=== PATIENT | female | born 1960 | race Caucasian/White ===

== ENCOUNTER 2024-06-01 22:15 | Inpatient (IN) | payer MEDICARE, OTHER, MEDICAID, SELFPAY ==
[2024-06-01 23:00] VITALS: BP 153/70; PULSE 56; RESP 16; TEMP 36.2; O2SAT 98
[2024-06-01 23:34] VITALS: BMI 22.3
--- NOTE | 2024-06-02 06:17 | PC.ADMIT ---
Patient is a 64 year old Niuean speaking female admitted on a Section 12B from [facility] ED. She arrived via stretcher to the unit 06/01/24 at 2245. Patient calm and cooperative with skin check which was unremarkable. Patient was difficult to understand and would often mumble an answer. Her speech is soft spoken, slightly tangential with some thought blocking noted. She has a past diagnosis of Schizoaffective disorder and anxiety. Her medical history includes Hyperlipidemia, and pre-diabetes. She is currently a resident at [facility] and has been there for three (3) weeks; she does not like being at the halfway and would like to go back home. Apparently she has been both physically and verbally aggressive with staff and residents. At the ED she was also aggressive with staff and required both a chemical and physical restraint. When this investigative writer asked her why she was in the hospital she said Because a friend of mine recently and I'm sad. Patient later said her friend in February 2024. Although patient answered questions with yes or no, she appears confused and delusional and made a passing reference to having a special connection with God. Patient did not recall getting upset at the halfway and asked if she could speak with a doctor severo. Patient was calm when she was told her orders would be put in and the doctor would see her Tuesday. After getting a snack patient went to bed and has been sleeping through the night in [facility].
[2024-06-02] MEDS: Gabapentin 300 MG CAPSULE PO ×3 (08:44→20:44)
[2024-06-02 08:45] VITALS: BP 141/75; PULSE 68; RESP 20; TEMP 36.3; O2SAT 100
[2024-06-02] MEDS: amLODIPine Besylate 5 MG TABLET PO (08:47)
[2024-06-02] MEDS: Metoprolol Succinate ER 25 MG TAB.ER.24H PO (08:47)
[2024-06-02] MEDS: LORazepam 1 MG TABLET PO ×3 (08:47→20:44)
[2024-06-02] MEDS: Benztropine Mesylate 1 MG TABLET PO ×2 (08:48→20:43)
[2024-06-02] MEDS: guanFACINE HCl ER 1 MG TAB.ER.24H PO (08:48)
[2024-06-02] MEDS: hydrOXYzine HCL 25 MG TABLET PO ×2 (08:48→20:43)
[2024-06-02] MEDS: fluPHENAZine HCl 5 MG TABLET 10 MG PO ×2 (08:48→20:44)
[2024-06-02] MEDS: Venlafaxine HCL 25 MG TABLET 75 MG PO (09:08)
--- NOTE | 2024-06-02 10:49 | HO.PSYADMNOT ---
HPI Date of Service: 06/02/24 Chief Complaint: schizoaffective disorder, bipolar type Sources of Information: patient interviewed, chart reviewed and crisis/core team assessment reviewed HPI Subjective Notes: Asencio Warning, Martinez Order and Conditional Voluntary Narrative: Negar is a 64-year-old white, female with history of schizoaffective disorder, generalized anxiety disorder and PTSD who was taken to [facility] in [facility] from her rest home, [facility] for agitation and psychosis. She had been living in this facility since April. She has been showing signs of decompensation recently and appears to be psychotic, agitated and aggressively acting towards staff and patients. She had been evaluated earlier in May at the same hospital for similar presentation. She has been medication compliant. She is not able to give any pertinent information and appears to be delusional, tangential, paranoid. She admits to auditory and visual hallucinations. Current medications include Cogentin 1 mg b.i.d., Prolixin 10 mg b.i.d., gabapentin 300 mg t.i.d., Intuniv 1 mg daily, Ativan 1 mg t.i.d., metoprolol 25 mg daily, Effexor 75 mg daily, Zyprexa 10 mg b.i.d., amlodipine 5 mg daily. Her EKG revealed bradycardia and left axis deviation. She was sent here after all the bed search in the [place] part [facility] the [facility] was exhausted. She is able to return to the rest home that is keeping the bed for 20 days Past Psychiatric History: Unknown Medical Evaluation Reviewed: Yes (Abnormal EKG) [facility] Family History: Unobtainable Social History: Unobtainable Substance History: None known Trauma History: Unobtainable Diagnostics Vital Signs (24Hr): Vital Signs - 24 hr 06/01/24 23:00 06/02/24 08:45 Temperature 97.1 F 97.3 F Pulse Rate 56 68 Respiratory Rate 16 20 Blood Pressure 153/70 H 141/75 H Pulse Oximetry 98 100 Oxygen Delivery Method Room Air Room Air BMI result Body Mass Index 22.3 Meds/Allergies Meds Home Medications ?Medication ?Instructions ?Recorded ?Confirmed ?Type amlodipine 5 mg tablet 5 mg PO DAILY 06/02/24 06/02/24 History benztropine 1 mg tablet 1 mg PO BID 06/02/24 06/02/24 History fluphenazine HCl 10 mg tablet 10 mg PO BID 06/02/24 06/02/24 History gabapentin 300 mg capsule 300 mg PO TID 06/02/24 06/02/24 History guanfacine 1 mg tablet 1 mg PO DAILY 06/02/24 06/02/24 History hydroxyzine pamoate 25 mg capsule 25 mg PO BID 06/02/24 06/02/24 History hydroxyzine pamoate 25 mg capsule 25 mg PO TID PRN Anxiety 06/02/24 06/02/24 History lorazepam 0.5 mg tablet PO 06/02/24 History lorazepam 1 mg tablet 1 mg PO TID 06/02/24 06/02/24 History metoprolol succinate 25 mg 25 mg PO DAILY 06/02/24 06/02/24 History tablet,extended release 24 hr olanzapine 5 mg tablet 5 mg PO BEDTIME 06/02/24 06/02/24 History tizanidine 2 mg tablet 4 mg PO 06/02/24 History venlafaxine 75 mg tablet 75 mg PO DAILY 06/02/24 06/02/24 History Allergies Allergies Allergy/AdvReac Type Severity Reaction Status Date / Time Sulfa (Sulfonamide AdvReac Mild Nausea and Verified 06/01/24 23:32 Antibiotics) Vomiting amoxicillin [From Augmentin] AdvReac Nausea and Verified 06/02/24 00:04 Vomiting clavulanic acid AdvReac Nausea and Verified 06/02/24 00:04 [From Augmentin] Vomiting Mental Status Exam Mental Status Exam Narrative: Patient was seen the day after her admission. She is alert to person only. Speech is garbled and hard to understand. No eye contact. Affect is contained and constricted. She appears delusional. She admits to [facility]. No suicidal ideations. Cognitively she is tangential, circumstantial and unable to give any coherent information. Judgment is impaired Assessment & Plan Assessment & Plan (1) Schizoaffective disorder, bipolar type: Status: Acute Code(s): F25.0 - Schizoaffective disorder, bipolar type Plan Patient was admitted for safety and stabilization and meets criteria for IP LOC. Current medications were continued. She refused lab work. We will get further information next week from her rest home. Patient educated on: diagnosis and medication risk/benefits Reason for continued inpatient stay Substantial Risk for: harm to others and med/psych decompensation Statement Statement: I have reviewed the history and physical and performed a pertinent examination on my patient. No changes have occurred unless specified. If the History and Physical was not performed prior to admission, the Hospitalist's service will be consulted for completing the admission physical. Time Spent With Patient Time: Total time managing care of this patient today ____ minutes.
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
[2024-06-02] MEDS: Divalproex Sodium ER 500 MG TAB.ER.24H PO (20:43)
[2024-06-02] MEDS: OLANZapine 10 MG TABLET PO (20:44)
[2024-06-02] MEDS: traZODone HCL 50 MG TABLET PO (22:22)
[2024-06-03] MEDS: hydrOXYzine HCL 25 MG TABLET PO ×3 (05:05→20:27)
[2024-06-03 07:33] LABS: MANUAL DIFF FLAG NO
[2024-06-03 07:38] LABS: Basophils Absolute Auto 0.1 X10*3/uL (0.0-0.2); Basophils Percent Auto 1.3 % (0-2); Eosinophils Absolute Auto 0.2 X10*3/uL (0.0-0.4); Eosinophils Percent Auto 2.1 % (0-4); Hematocrit 39.9 % (37.0-47.0); Hemoglobin 13.7 g/dl (12.0-16.0); Imm Gran Abs Auto 0.02 X10*3/uL (0.00-0.03); Imm Gran Pct Auto 0.3 % (0.0-0.4); Lymphocytes Absolute Auto 2.8 X10*3/uL (1.2-4.9); Lymphocytes Percent Auto 39.6 % (20-40); Mean Corpuscular HGB Conc 34.3 g/dl (31.0-35.0); Mean Corpuscular Hemoglobin 30.3 pg (27.0-33.0); Mean Corpuscular Volume 88.3 fL (80.0-98.0); Mean Platelet Volume 8.6 fL (9.4-12.3); Monocytes Absolute Auto 0.5 X10*3/uL (0.1-1.2); Monocytes Percent Auto 7.4 % (2-11); Neutrophils Absolute Auto 3.5 x10*3/uL (2.0-8.3); Neutrophils Percent Auto 49.3 % (45-73); Platelet Count 334 X10*3/uL (160-400); Red Blood Count 4.52 X10*6/uL (4.20-5.50); White Blood Count 7.1 X10*3/uL (4.8-10.8)
[2024-06-03 07:46] LABS: Estimated Average Glucose 105 mg/dL; Hemoglobin A1C 122.1839 umol/L; Hemoglobin A1c % 5.3 % (<6.0); Total Hemoglobin (HGBA1C) 3553.2882 umol/L
[2024-06-03 07:59] LABS: Alanine Aminotransferase 19 U/L (0-31); Albumin Level 4.3 g/dL (3.5-5.0); Alkaline Phosphatase 63 U/L (39-117); Anion Gap 16 (12-20); Aspartate Amino Transferase 23 U/L (5-31); Bilirubin Total 0.3 mg/dL (0.0-1.0); Blood Urea Nitrogen 14 mg/dL (9-16); Calcium 10.1 mg/dL (8.4-10.2); Carbon Dioxide 26 mmol/L (22-29); Chloride 107 mmol/L (96-108); Cholesterol 140 mg/dL (<200); Creatinine Clr Calc Pharmacy 70.8; Estimated Glomerular Filt Rate > 60; Glucose Fasting 77 mg/dL (60-99); HDL Cholesterol 51 mg/dL (>40); LDL Cholesterol Calculated 77 mg/dL (<100); Potassium 3.7 mmol/L (3.3-5.1); Sodium 145 mmol/L (135-145); Total Protein 7.3 g/dL (6.5-8.0); Triglycerides 60 mg/dL (<150)
[2024-06-03 08:14] LABS: Free T4 (Free Thyroxine) 0.95 ng/dL (0.71-1.85); Thyroid Stimulating Hormone 1.23 uIU/mL (0.32-4.0)
[2024-06-03 08:19] VITALS: BP 124/63; PULSE 61; RESP 20; TEMP 36.4; O2SAT 97
[2024-06-03] MEDS: LORazepam 1 MG TABLET PO ×3 (08:21→20:27)
[2024-06-03] MEDS: Benztropine Mesylate 1 MG TABLET PO ×2 (08:21→20:27)
[2024-06-03] MEDS: OLANZapine 10 MG TABLET PO ×2 (08:22→20:27)
[2024-06-03] MEDS: guanFACINE HCl ER 1 MG TAB.ER.24H PO (08:22)
[2024-06-03] MEDS: Gabapentin 300 MG CAPSULE PO ×3 (08:22→20:27)
[2024-06-03] MEDS: amLODIPine Besylate 5 MG TABLET PO (08:22)
[2024-06-03] MEDS: Metoprolol Succinate ER 25 MG TAB.ER.24H PO (08:22)
--- NOTE | 2024-06-03 08:22 | P.PNPSI_ITS ---
Subjective Subjective Date of Service: 06/03/24 Reason For Visit: schizoaffective disorder, bipolar type Subjective Notes: Conditional Voluntary Interim History: Patient was seen and discussed in rounds today. Records and plans were reviewed. She continues to be very disorganized, labile, responding to internal stimuli. She refused laboratory workup. Continues to be delusional, religiously preoccupied and disorganized. No complaints or side effects and has been medication compliant. Eating and sleeping adequately. No changes were made today Review of Systems Review of Systems Yes Unobtainable due to mental status Mental Status Exam Mental Status Exam Narrative: In today's visit she is alert to person only. Speech is garbled and hard to understand. No eye contact. Affect is contained and constricted. She appears delusional. She admits to [facility]. No suicidal ideations. Cognitively she is tangential, circumstantial and unable to give any coherent information and very disorganized. Judgment is impaired Diagnostics Vital Signs (24Hr): Vital Signs - 24 hr 06/02/24 08:45 06/03/24 08:19 Temperature 97.3 F 97.5 F Pulse Rate 68 61 Respiratory Rate 20 20 Blood Pressure 141/75 H 124/63 Pulse Oximetry 100 97 Oxygen Delivery Method Room Air Room Air BMI result Body Mass Index 22.3 Labs 06/03/24 07:22 06/03/24 07:22 Labs: Laboratory Results - last 48 hr 06/03/24 07:22 WBC 7.1 RBC 4.52 Hgb 13.7 Hct 39.9 MCV 88.3 MCH 30.3 MCHC 34.3 RDW 13.0 Plt Count 334 MPV 8.6 L Immature Gran % (Auto) 0.3 Neut % (Auto) 49.3 Lymph % (Auto) 39.6 Robeson % (Auto) 7.4 Eos % (Auto) 2.1 Baso % (Auto) 1.3 Lymph # (Auto) 2.8 Robeson # (Auto) 0.5 Eos # (Auto) 0.2 Baso # (Auto) 0.1 Abs Immat Gran (auto) 0.02 Absolute Neuts (auto) 3.5 Absolute Nucleated RBC 0.000 Nucleated RBC % (auto) 0.0 Sodium 145 Potassium 3.7 Chloride 107 Carbon Dioxide 26 Anion Gap 16 BUN 14 Creatinine 0.78 Estim Creat Clear Calc 70.8 Estimated GFR > 60 Fasting Glucose 77 Estimat Average Glucose 105 Hemoglobin A1c % 5.3 Calcium 10.1 Total Bilirubin 0.3 AST 23 ALT 19 Alkaline Phosphatase 63 Total Protein 7.3 Albumin 4.3 Triglycerides 60 Cholesterol 140 LDL Cholesterol, Calc 77 HDL Cholesterol 51 TSH 1.23 Free T4 0.95 Medications Medications Current Medications Acetaminophen (Acetaminophen 325 Mg Tablet) 650 mg PO Q6H PRN PRN Reason: Headache/Pain Mild Scale (1-3) Al Hydroxide/Mg Hydroxide (Magnesium Hydrox/Alum Hydrox 30 Ml Oral.Susp) 30 ml PO Q6H PRN PRN Reason: Heartburn/Nausea Amlodipine Besylate (Amlodipine Besylate 5 Mg Tablet) 5 mg PO DAILY [facility]; Protocol Last Admin: 06/02/24 08:47 Dose: 5 mg Benztropine Mesylate (Benztropine Mesylate 1 Mg Tablet) 1 mg PO BID [facility] Last Admin: 06/02/24 20:43 Dose: 1 mg Divalproex Sodium (Divalproex Sodium Er 500 Mg Tab.Er.24h) 500 mg PO BID [facility] Last Admin: 06/02/24 20:43 Dose: 500 mg Fluphenazine HCl (Fluphenazine Hcl 5 Mg Tablet) 10 mg PO BID [facility] Last Admin: 06/02/24 20:44 Dose: 10 mg Gabapentin (Gabapentin 300 Mg Capsule) 300 mg PO TID [facility] Last Admin: 06/02/24 20:44 Dose: 300 mg Guanfacine HCl (Guanfacine Hcl Er 1 Mg Tab.Er.24h) 1 mg PO DAILY [facility] Last Admin: 06/02/24 08:48 Dose: 1 mg Hydroxyzine HCl (Hydroxyzine Hcl 25 Mg Tablet) 25 mg PO Q6H PRN PRN Reason: Anxiety Last Admin: 06/03/24 05:05 Dose: 25 mg Hydroxyzine HCl (Hydroxyzine Hcl 25 Mg Tablet) 25 mg PO BID [facility] Last Admin: 06/02/24 20:43 Dose: 25 mg Lorazepam (Lorazepam 1 Mg Tablet) 1 mg PO TID [facility] Last Admin: 06/02/24 20:44 Dose: 1 mg Magnesium Hydroxide (Milk Of Magnesia 30 Ml Oral.Susp) 30 ml PO DAILY PRN PRN Reason: Constipation Metoprolol Succinate (Metoprolol Succinate Er 25 Mg Tab.Er.24h) 25 mg PO DAILY [facility]; Protocol Last Admin: 06/02/24 08:47 Dose: 25 mg Nicotine (Nicotine 14 Mg Patch.Td24) 14 mg TRANSDERMA DAILY PRN PRN Reason: Nicotine Cravings Nicotine Polacrilex (Nicotine Polacrilex 2 Mg Gum) 2 mg BUCCAL Q2H PRN PRN Reason: Nicotine Cravings Nicotine Polacrilex (Nicotine Polacrilex Lozenge 2 Mg Lozenge) 2 mg BUCCAL Q2H PRN PRN Reason: Nicotine Cravings Olanzapine (Olanzapine 10 Mg Tablet) 10 mg PO BID [facility] Last Admin: 06/02/24 20:44 Dose: 10 mg Trazodone HCl (Trazodone Hcl 50 Mg Tablet) 50 mg PO BEDTIME MRX1 PRN PRN Reason: Insomnia Last Admin: 06/02/24 22:22 Dose: 50 mg Venlafaxine HCl (Venlafaxine Hcl 25 Mg Tablet) 75 mg PO DAILY [facility] Last Admin: 06/02/24 09:08 Dose: 75 mg Allergies Allergies Allergy/AdvReac Type Severity Reaction Status Date / Time Sulfa (Sulfonamide AdvReac Mild Nausea and Verified 06/01/24 23:32 Antibiotics) Vomiting amoxicillin [From Augmentin] AdvReac Nausea and Verified 06/02/24 00:04 Vomiting clavulanic acid AdvReac Nausea and Verified 06/02/24 00:04 [From Augmentin] Vomiting Assessment & Plan Assessment & Plan (1) Routine medical exam: Status: Acute Code(s): Z00.00 - Encounter for general adult medical examination without abnormal findings Plan 64 year old female with history of schizoaffective disorder, hld, prediabetes, htn admitted to adult psychiatry from [facility] after [facility] reported increase aggression from patient. #Mood/psychotic disorder -plan per psychiatry #HTN -bp reasonably controlled -continue norvasc and toprol #prediabetes -check a1c, check poc daily Thank you for allowing me to participate in this consult. Signing off at this time. Please do not hesitate to call for further questions. 06/03: Continue current regimen and planslan Reason for continued inpatient stay Substantial Risk for: med/psych decompensation Time Spent With Patient Time: Total time managing care of this patient today ____ minutes.
[2024-06-03] MEDS: fluPHENAZine HCl 5 MG TABLET 10 MG PO ×2 (08:23→20:26)
[2024-06-03] MEDS: Venlafaxine HCL 25 MG TABLET 75 MG PO (08:24)
[2024-06-03 08:27] LABS: Folate 8.6 ng/mL (> or = 4.0); Vitamin B12 495 pg/mL (200-900)
[2024-06-03] MEDS: Divalproex Sodium ER 500 MG TAB.ER.24H PO ×2 (09:06→20:26)
[2024-06-03 20:00] VITALS: BP 149/76; PULSE 67; RESP 18; TEMP 36.3; O2SAT 99
[2024-06-04 08:34] VITALS: BP 151/84; PULSE 68; RESP 16; TEMP 36.3; O2SAT 98
[2024-06-04 08:38] LABS: Glucose, Whole Blood 100 mg/dL (60-115)
[2024-06-04] MEDS: Venlafaxine HCL 25 MG TABLET 75 MG PO (08:46)
[2024-06-04] MEDS: amLODIPine Besylate 5 MG TABLET PO (08:47)
[2024-06-04] MEDS: guanFACINE HCl ER 1 MG TAB.ER.24H PO (08:47)
[2024-06-04] MEDS: OLANZapine 10 MG TABLET PO ×2 (08:47→21:19)
[2024-06-04] MEDS: Benztropine Mesylate 1 MG TABLET PO ×2 (08:47→21:15)
[2024-06-04] MEDS: Divalproex Sodium ER 500 MG TAB.ER.24H PO ×2 (08:47→21:21)
--- NOTE | 2024-06-04 10:10 | HO.PSYCHPN ---
Subjective Subjective Date of Service: 06/04/24 Reason For Visit: schizoaffective disorder, bipolar type Subjective Notes: Asencio Warning (consumer loan underwriter gave 06/04/24) Interim History: met with patient; discussed with team pt sometimes responds in organized way but also expressing paranoid, delusional thoughts; labile, will all of sudden start crying. Pt says she has to let government know there are devils and witches in the nursing homes...Says her [facility] her [facility]...Starts pointing to writers computer and says she can see a snake moving; points to door and says she sees people (which are not there). -knows name, , where she lives ([facility]), date (month, year) and where she is now, but not why. -gives verbal permission to call her son Jani. Mental Status Exam Mental Status Exam Narrative: Alert to self, time, place. Behavior disorganized but seems improved since yesterday; Dressed and groomed adequately; Speech is sometimes garbled but can also be clear; Improved eye contact. Thought process can be goal oriented but also distracted and disorganized; mood and Affect is labile; Thought content on delusional ideas; AVH; no SI/HI. Judgment/insight is impaired Diagnostics Vital Signs (24Hr): Vital Signs - 24 hr 06/03/24 20:00 06/04/24 08:34 Temperature 97.3 F 97.4 F Pulse Rate 67 68 Respiratory Rate 18 16 Blood Pressure 149/76 H 151/84 H Pulse Oximetry 99 98 Oxygen Delivery Method Room Air Room Air BMI result Body Mass Index 22.3 Labs 06/03/24 07:22 06/03/24 07:22 Labs: Laboratory Results - last 48 hr 06/03/24 06/04/24 07:22 08:34 WBC 7.1 RBC 4.52 Hgb 13.7 Hct 39.9 MCV 88.3 MCH 30.3 MCHC 34.3 RDW 13.0 Plt Count 334 MPV 8.6 L Immature Gran % (Auto) 0.3 Neut % (Auto) 49.3 Lymph % (Auto) 39.6 Rogers % (Auto) 7.4 Eos % (Auto) 2.1 Baso % (Auto) 1.3 Lymph # (Auto) 2.8 Rogers # (Auto) 0.5 Eos # (Auto) 0.2 Baso # (Auto) 0.1 Abs Immat Gran (auto) 0.02 Absolute Neuts (auto) 3.5 Absolute Nucleated RBC 0.000 Nucleated RBC % (auto) 0.0 Sodium 145 Potassium 3.7 Chloride 107 Carbon Dioxide 26 Anion Gap 16 BUN 14 Creatinine 0.78 Estim Creat Clear Calc 70.8 Estimated GFR > 60 POC Glucose 100 Fasting Glucose 77 Estimat Average Glucose 105 Hemoglobin A1c % 5.3 Calcium 10.1 Total Bilirubin 0.3 AST 23 ALT 19 Alkaline Phosphatase 63 Total Protein 7.3 Albumin 4.3 Triglycerides 60 Cholesterol 140 LDL Cholesterol, Calc 77 HDL Cholesterol 51 Vitamin B12 495 Folate 8.6 TSH 1.23 Free T4 0.95 Medications Medications Current Medications Acetaminophen (Acetaminophen 325 Mg Tablet) 650 mg PO Q6H PRN PRN Reason: Headache/Pain Mild Scale (1-3) Al Hydroxide/Mg Hydroxide (Magnesium Hydrox/Alum Hydrox 30 Ml Oral.Susp) 30 ml PO Q6H PRN PRN Reason: Heartburn/Nausea Amlodipine Besylate (Amlodipine Besylate 5 Mg Tablet) 5 mg PO DAILY [facility]; Protocol Last Admin: 06/04/24 08:47 Dose: 5 mg Benztropine Mesylate (Benztropine Mesylate 1 Mg Tablet) 1 mg PO BID [facility] Last Admin: 06/04/24 08:47 Dose: 1 mg Divalproex Sodium (Divalproex Sodium Er 500 Mg Tab.Er.24h) 500 mg PO BID [facility] Last Admin: 06/04/24 08:47 Dose: 500 mg Fluphenazine HCl (Fluphenazine Hcl 5 Mg Tablet) 10 mg PO BID [facility] Last Admin: 06/04/24 09:30 Dose: Not Given Gabapentin (Gabapentin 300 Mg Capsule) 300 mg PO TID [facility] Last Admin: 06/04/24 09:30 Dose: Not Given Guanfacine HCl (Guanfacine Hcl Er 1 Mg Tab.Er.24h) 1 mg PO DAILY [facility] Last Admin: 06/04/24 08:47 Dose: 1 mg Hydroxyzine HCl (Hydroxyzine Hcl 25 Mg Tablet) 25 mg PO Q6H PRN PRN Reason: Anxiety Last Admin: 06/03/24 05:05 Dose: 25 mg Hydroxyzine HCl (Hydroxyzine Hcl 25 Mg Tablet) 25 mg PO BID [facility] Last Admin: 06/04/24 09:30 Dose: Not Given Lorazepam (Lorazepam 1 Mg Tablet) 1 mg PO TID [facility] Last Admin: 06/04/24 09:30 Dose: Not Given Magnesium Hydroxide (Milk Of Magnesia 30 Ml Oral.Susp) 30 ml PO DAILY PRN PRN Reason: Constipation Metoprolol Succinate (Metoprolol Succinate Er 25 Mg Tab.Er.24h) 25 mg PO DAILY [facility]; Protocol Last Admin: 06/04/24 09:29 Dose: Not Given Nicotine (Nicotine 14 Mg Patch.Td24) 14 mg TRANSDERMA DAILY PRN PRN Reason: Nicotine Cravings Nicotine Polacrilex (Nicotine Polacrilex 2 Mg Gum) 2 mg BUCCAL Q2H PRN PRN Reason: Nicotine Cravings Nicotine Polacrilex (Nicotine Polacrilex Lozenge 2 Mg Lozenge) 2 mg BUCCAL Q2H PRN PRN Reason: Nicotine Cravings Olanzapine (Olanzapine 10 Mg Tablet) 10 mg PO BID [facility] Last Admin: 06/04/24 08:47 Dose: 10 mg Trazodone HCl (Trazodone Hcl 50 Mg Tablet) 50 mg PO BEDTIME MRX1 PRN PRN Reason: Insomnia Last Admin: 06/02/24 22:22 Dose: 50 mg Venlafaxine HCl (Venlafaxine Hcl 25 Mg Tablet) 75 mg PO DAILY [facility] Last Admin: 06/04/24 08:46 Dose: 75 mg Allergies Allergies Allergy/AdvReac Type Severity Reaction Status Date / Time Sulfa (Sulfonamide AdvReac Mild Nausea and Verified 06/01/24 23:32 Antibiotics) Vomiting amoxicillin [From Augmentin] AdvReac Nausea and Verified 06/02/24 00:04 Vomiting clavulanic acid AdvReac Nausea and Verified 06/02/24 00:04 [From Augmentin] Vomiting Assessment & Plan Assessment & Plan (1) Schizoaffective disorder, bipolar type: Status: Acute Code(s): F25.0 - Schizoaffective disorder, bipolar type (2) HTN (hypertension): Status: Acute Code(s): I10 - Essential (primary) hypertension (3) HLD (hyperlipidemia): Status: Acute Code(s): E78.5 - Hyperlipidemia, unspecified (4) Prediabetes: Status: Acute Code(s): R73.03 - Prediabetes Plan HPI: Negar is a 64-year-old white, female with history of schizoaffective disorder, generalized anxiety disorder and PTSD who was taken to [facility] in [facility] from her rest home, [facility] for agitation and psychosis. She had been living in this facility since April. She has been showing signs of decompensation recently and appears to be psychotic, agitated and aggressively acting towards staff and patients. She had been evaluated earlier in May at the same hospital for similar presentation. She has been medication compliant. She is not able to give any pertinent information and appears to be delusional, tangential, paranoid. She admits to auditory and visual hallucinations. Current medications include Cogentin 1 mg b.i.d., Prolixin 10 mg b.i.d., gabapentin 300 mg t.i.d., Intuniv 1 mg daily, Ativan 1 mg t.i.d., metoprolol 25 mg daily, Effexor 75 mg daily, Zyprexa 10 mg b.i.d., amlodipine 5 mg daily. Her EKG revealed bradycardia and left axis deviation. She was sent here after all the bed search in the [place] part of the [facility] was exhausted. She is able to return to the rest home that is keeping the bed for 20 days Hospital course: 06/04 pt sometimes responds in organized way but also expressing paranoid, delusional thoughts; labile, will all of sudden start crying. Pt says she has to let government know there are devils and witches in the nursing homes...Says her kids abandoned her [facility]...Starts pointing to writers computer and says she can see a snake moving; points to door and says she sees people (which are not there). -knows name, , where she lives ([facility]), date (month, year) and where she is now, but not why. -gives verbal permission to call her son Jani. impression: psychotic but also possibly with some delirium...labs unremarkable thus far. Also seems to be improving some. Will Need collateral. Plan: 12b; will likely file gather collateral continue home meds Patient educated on: diagnosis and medication risk/benefits Informed Consent: understands and does not understand Reason for continued inpatient stay Substantial Risk for: inability to function Time Spent With Patient Time: Total time managing care of this patient today ____ minutes.
[2024-06-04] MEDS: fluPHENAZine HCl 5 MG TABLET 10 MG PO ×2 (12:30→21:15)
[2024-06-04] MEDS: Gabapentin 300 MG CAPSULE PO ×2 (15:44→21:22)
[2024-06-04] MEDS: LORazepam 1 MG TABLET PO ×2 (15:44→21:16)
[2024-06-04 20:00] VITALS: BP 120/81; PULSE 75; TEMP 36.3; O2SAT 98
[2024-06-04] MEDS: hydrOXYzine HCL 25 MG TABLET PO (21:16)
[2024-06-05 09:54] LABS: Glucose, Whole Blood 82 mg/dL (60-115)
[2024-06-05 10:00] VITALS: BP 121/85; PULSE 86; RESP 18; TEMP 36.2; O2SAT 96
--- NOTE | 2024-06-05 10:13 | HO.PSYCHPN ---
Subjective Subjective Date of Service: 06/05/24 Reason For Visit: schizoaffective disorder, bipolar type Subjective Notes: Conditional Voluntary Interim History: Pt slept all night. She is seen in her room, cups, food, napkins on the floor. She reports the devil is not letting her alone. She denies hearing voices but appears internally preoccupied. She is worried about her children losing her but states she is safe here. She denies SI/HI. She is taking medications as prescribed. Diagnostics Vital Signs (24Hr): Vital Signs - 24 hr 06/04/24 20:00 Temperature 97.4 F Pulse Rate 75 Blood Pressure 120/81 Pulse Oximetry 98 Oxygen Delivery Method Room Air BMI result Body Mass Index 22.3 Labs 06/03/24 07:22 06/03/24 07:22 Labs: Laboratory Results - last 48 hr 06/04/24 06/05/24 08:34 09:49 POC Glucose 100 82 Medications Medications Current Medications Acetaminophen (Acetaminophen 325 Mg Tablet) 650 mg PO Q6H PRN PRN Reason: Headache/Pain Mild Scale (1-3) Al Hydroxide/Mg Hydroxide (Magnesium Hydrox/Alum Hydrox 30 Ml Oral.Susp) 30 ml PO Q6H PRN PRN Reason: Heartburn/Nausea Amlodipine Besylate (Amlodipine Besylate 5 Mg Tablet) 5 mg PO DAILY [facility]; Protocol Last Admin: 06/04/24 08:47 Dose: 5 mg Benztropine Mesylate (Benztropine Mesylate 1 Mg Tablet) 1 mg PO BID [facility] Last Admin: 06/04/24 21:15 Dose: 1 mg Divalproex Sodium (Divalproex Sodium Er 500 Mg Tab.Er.24h) 500 mg PO BID [facility] Last Admin: 06/04/24 21:21 Dose: 500 mg Fluphenazine HCl (Fluphenazine Hcl 5 Mg Tablet) 10 mg PO BID [facility] Last Admin: 06/04/24 21:15 Dose: 10 mg Gabapentin (Gabapentin 300 Mg Capsule) 300 mg PO TID [facility] Last Admin: 06/04/24 21:22 Dose: 300 mg Guanfacine HCl (Guanfacine Hcl Er 1 Mg Tab.Er.24h) 1 mg PO DAILY [facility] Last Admin: 06/04/24 08:47 Dose: 1 mg Hydroxyzine HCl (Hydroxyzine Hcl 25 Mg Tablet) 25 mg PO BID [facility] Last Admin: 06/04/24 21:16 Dose: 25 mg Lorazepam (Lorazepam 1 Mg Tablet) 1 mg PO TID [facility] Last Admin: 06/04/24 21:16 Dose: 1 mg Magnesium Hydroxide (Milk Of Magnesia 30 Ml Oral.Susp) 30 ml PO DAILY PRN PRN Reason: Constipation Metoprolol Succinate (Metoprolol Succinate Er 25 Mg Tab.Er.24h) 25 mg PO DAILY [facility]; Protocol Last Admin: 06/04/24 09:29 Dose: Not Given Nicotine (Nicotine 14 Mg Patch.Td24) 14 mg TRANSDERMA DAILY PRN PRN Reason: Nicotine Cravings Nicotine Polacrilex (Nicotine Polacrilex Lozenge 4 Mg Lozenge) 4 mg BUCCAL Q2H PRN PRN Reason: Nicotine Cravings Olanzapine (Olanzapine 10 Mg Tablet) 10 mg PO BID [facility] Last Admin: 06/04/24 21:19 Dose: 10 mg Trazodone HCl (Trazodone Hcl 50 Mg Tablet) 50 mg PO BEDTIME MRX1 PRN PRN Reason: Insomnia Last Admin: 06/02/24 22:22 Dose: 50 mg Venlafaxine HCl (Venlafaxine Hcl 25 Mg Tablet) 75 mg PO DAILY [facility] Last Admin: 06/04/24 08:46 Dose: 75 mg Allergies Allergies Allergy/AdvReac Type Severity Reaction Status Date / Time Sulfa (Sulfonamide AdvReac Mild Nausea and Verified 06/01/24 23:32 Antibiotics) Vomiting amoxicillin [From Augmentin] AdvReac Nausea and Verified 06/02/24 00:04 Vomiting clavulanic acid AdvReac Nausea and Verified 06/02/24 00:04 [From Augmentin] Vomiting Assessment & Plan Assessment & Plan (1) Schizoaffective disorder, bipolar type: Status: Acute Code(s): F25.0 - Schizoaffective disorder, bipolar type Plan 64 year old female with history of schizoaffective disorder, hld, prediabetes, htn admitted to adult psychiatry from [facility] after [facility]entiary reported increase aggression from patient. #Mood/psychotic disorder -plan per psychiatry #HTN -bp reasonably controlled -continue norvasc and toprol #prediabetes -check a1c, check poc daily Thank you for allowing me to participate in this consult. Signing off at this time. Please do not hesitate to call for further questions. 06/03: Continue current regimen and plans 06/05 continue tx. Reason for continued inpatient stay Substantial Risk for: inability to function Time Spent With Patient Time: Total time managing care of this patient today ____ minutes.
[2024-06-05] MEDS: Venlafaxine HCL 25 MG TABLET 75 MG PO (10:44)
[2024-06-05] MEDS: LORazepam 1 MG TABLET PO ×3 (10:44→21:28)
[2024-06-05] MEDS: fluPHENAZine HCl 5 MG TABLET 10 MG PO ×2 (10:44→20:53)
[2024-06-05] MEDS: Divalproex Sodium ER 500 MG TAB.ER.24H PO ×2 (10:45→20:54)
[2024-06-05] MEDS: OLANZapine 10 MG TABLET PO ×2 (10:45→20:54)
[2024-06-05] MEDS: Benztropine Mesylate 1 MG TABLET PO ×2 (10:45→20:54)
[2024-06-05] MEDS: Gabapentin 300 MG CAPSULE PO ×2 (16:20→20:53)
[2024-06-05 19:37] VITALS: BP 130/87; PULSE 100; RESP 18; TEMP 35.8; O2SAT 99
[2024-06-05] MEDS: hydrOXYzine HCL 25 MG TABLET PO (20:53)
[2024-06-06 08:00] VITALS: BP 117/85; PULSE 100; RESP 16; TEMP 36.4; O2SAT 97
[2024-06-06 08:18] LABS: Glucose, Whole Blood 102 mg/dL (60-115)
[2024-06-06] MEDS: Venlafaxine HCL 25 MG TABLET 75 MG PO (09:14)
[2024-06-06] MEDS: Divalproex Sodium ER 500 MG TAB.ER.24H PO ×2 (09:14→20:25)
[2024-06-06] MEDS: LORazepam 1 MG TABLET PO ×3 (09:14→20:25)
[2024-06-06] MEDS: Gabapentin 300 MG CAPSULE PO ×3 (09:15→20:25)
[2024-06-06] MEDS: amLODIPine Besylate 5 MG TABLET PO (09:15)
[2024-06-06] MEDS: Metoprolol Succinate ER 25 MG TAB.ER.24H PO (09:15)
[2024-06-06] MEDS: OLANZapine 10 MG TABLET PO ×2 (09:15→20:25)
[2024-06-06] MEDS: hydrOXYzine HCL 25 MG TABLET PO ×2 (09:16→20:25)
[2024-06-06] MEDS: Benztropine Mesylate 1 MG TABLET PO ×2 (09:16→20:25)
[2024-06-06] MEDS: guanFACINE HCl ER 1 MG TAB.ER.24H PO (09:16)
[2024-06-06] MEDS: fluPHENAZine HCl 5 MG TABLET 10 MG PO ×2 (09:16→20:25)
--- NOTE | 2024-06-06 10:51 | P.PNPSI_ITS ---
Subjective Subjective Date of Service: 06/06/24 Reason For Visit: schizoaffective disorder, bipolar type Subjective Notes: Conditional Voluntary Interim History: Pt reports there were demons and spirits at rest home where she came from. She reports she feels safer here but at times does think some of the food given may be poisoned which then she throws on the floor. She states she was leaving today, but informed by this conventional mortgage underwriter that his is not the case. She is taking medications as prescribed. She denies SI/HI. Today, appears slightly calmer, not targeting peer as much, but continues to self dialogued. Medication Compliance: Yes Side effects from medications: No Diagnostics Vital Signs (24Hr): Vital Signs - 24 hr 06/05/24 19:37 06/06/24 08:00 Temperature 96.4 F L 97.6 F Pulse Rate 100 100 Respiratory Rate 18 16 Blood Pressure 130/87 117/85 Pulse Oximetry 99 97 Oxygen Delivery Method Room Air Room Air BMI result Body Mass Index 22.3 Labs 06/03/24 07:22 06/03/24 07:22 Labs: Laboratory Results - last 48 hr 06/05/24 06/06/24 09:49 08:14 POC Glucose 82 102 Medications Medications Current Medications Acetaminophen (Acetaminophen 325 Mg Tablet) 650 mg PO Q6H PRN PRN Reason: Headache/Pain Mild Scale (1-3) Al Hydroxide/Mg Hydroxide (Magnesium Hydrox/Alum Hydrox 30 Ml Oral.Susp) 30 ml PO Q6H PRN PRN Reason: Heartburn/Nausea Amlodipine Besylate (Amlodipine Besylate 5 Mg Tablet) 5 mg PO DAILY [facility]; Protocol Last Admin: 06/06/24 09:15 Dose: 5 mg Benztropine Mesylate (Benztropine Mesylate 1 Mg Tablet) 1 mg PO BID [facility] Last Admin: 06/06/24 09:16 Dose: 1 mg Divalproex Sodium (Divalproex Sodium Er 500 Mg Tab.Er.24h) 500 mg PO BID [facility] Last Admin: 06/06/24 09:14 Dose: 500 mg Fluphenazine HCl (Fluphenazine Hcl 5 Mg Tablet) 10 mg PO BID [facility] Last Admin: 06/06/24 09:16 Dose: 10 mg Gabapentin (Gabapentin 300 Mg Capsule) 300 mg PO TID [facility] Last Admin: 06/06/24 09:15 Dose: 300 mg Guanfacine HCl (Guanfacine Hcl Er 1 Mg Tab.Er.24h) 1 mg PO DAILY [facility] Last Admin: 06/06/24 09:16 Dose: 1 mg Hydroxyzine HCl (Hydroxyzine Hcl 25 Mg Tablet) 25 mg PO BID [facility] Last Admin: 06/06/24 09:16 Dose: 25 mg Lorazepam (Lorazepam 1 Mg Tablet) 1 mg PO TID [facility] Last Admin: 06/06/24 09:14 Dose: 1 mg Magnesium Hydroxide (Milk Of Magnesia 30 Ml Oral.Susp) 30 ml PO DAILY PRN PRN Reason: Constipation Metoprolol Succinate (Metoprolol Succinate Er 25 Mg Tab.Er.24h) 25 mg PO DAILY [facility]; Protocol Last Admin: 06/06/24 09:15 Dose: 25 mg Nicotine (Nicotine 14 Mg Patch.Td24) 14 mg TRANSDERMA DAILY PRN PRN Reason: Nicotine Cravings Nicotine Polacrilex (Nicotine Polacrilex Lozenge 4 Mg Lozenge) 4 mg BUCCAL Q2H PRN PRN Reason: Nicotine Cravings Olanzapine (Olanzapine 10 Mg Tablet) 10 mg PO BID [facility] Last Admin: 06/06/24 09:15 Dose: 10 mg Trazodone HCl (Trazodone Hcl 50 Mg Tablet) 50 mg PO BEDTIME MRX1 PRN PRN Reason: Insomnia Last Admin: 06/02/24 22:22 Dose: 50 mg Venlafaxine HCl (Venlafaxine Hcl 25 Mg Tablet) 75 mg PO DAILY [facility] Last Admin: 06/06/24 09:14 Dose: 75 mg Allergies Allergies Allergy/AdvReac Type Severity Reaction Status Date / Time Sulfa (Sulfonamide AdvReac Mild Nausea and Verified 06/01/24 23:32 Antibiotics) Vomiting amoxicillin [From Augmentin] AdvReac Nausea and Verified 06/02/24 00:04 Vomiting clavulanic acid AdvReac Nausea and Verified 06/02/24 00:04 [From Augmentin] Vomiting Assessment & Plan Assessment & Plan (1) Schizoaffective disorder, bipolar type: Status: Acute Code(s): F25.0 - Schizoaffective disorder, bipolar type (2) HTN (hypertension): Status: Acute Code(s): I10 - Essential (primary) hypertension (3) HLD (hyperlipidemia): Status: Acute Code(s): E78.5 - Hyperlipidemia, unspecified (4) Prediabetes: Status: Acute Code(s): R73.03 - Prediabetes Plan HPI: Negar is a 64-year-old white, female with history of schizoaffective disorder, generalized anxiety disorder and PTSD who was taken to [facility] in [facility] from her rest home, [facility] for agitation and psychosis. She had been living in this facility since April. She has been showing signs of decompensation recently and appears to be psychotic, agitated and aggressively acting towards staff and patients. She had been evaluated earlier in May at the same hospital for similar presentation. She has been medication compliant. She is not able to give any pertinent information and appears to be delusional, tangential, paranoid. She admits to auditory and visual hallucinations. Current medications include Cogentin 1 mg b.i.d., Prolixin 10 mg b.i.d., gabapentin 300 mg t.i.d., Intuniv 1 mg daily, Ativan 1 mg t.i.d., metoprolol 25 mg daily, Effexor 75 mg daily, Zyprexa 10 mg b.i.d., amlodipine 5 mg daily. Her EKG revealed bradycardia and left axis deviation. She was sent here after all the bed search in the [place] part of the [facility] was exhausted. She is able to return to the rest home that is keeping the bed for 20 days Hospital course: 06/04 pt sometimes responds in organized way but also expressing paranoid, delusional thoughts; labile, will all of sudden start crying. Pt says she has to let government know there are devils and witches in the nursing homes...Says her kids abandoned her at snf...Starts pointing to writers computer and says she can see a snake moving; points to door and says she sees people (which are not there). -knows name, , where she lives ([facility]), date (month, year) and where she is now, but not why. -gives verbal permission to call her son Jani. impression: psychotic but also possibly with some delirium...labs unremarkable thus far. Also seems to be improving some. Will Need collateral. 06/05 continue tx 06/06 consider tapering off venlafaxine as it may worsen psychosis and delusions. will lower to 37.5mg po daily. continue prolixin and olanzapine. Plan: 12b; will likely file gather collateral continue home meds Reason for continued inpatient stay Substantial Risk for: inability to function Time Spent With Patient Time: Total time managing care of this patient today ____ minutes.
[2024-06-06] MEDS: traZODone HCL 50 MG TABLET PO ×2 (20:25→23:50)
[2024-06-07 08:00] VITALS: BP 136/67; PULSE 70; RESP 16; TEMP 36.5; O2SAT 97
[2024-06-07 08:00] LABS: Glucose, Whole Blood 91 mg/dL (60-115)
[2024-06-07] MEDS: Venlafaxine HCL 25 MG TABLET 37.5 MG PO (08:55)
[2024-06-07] MEDS: Benztropine Mesylate 1 MG TABLET PO (08:55)
[2024-06-07] MEDS: hydrOXYzine HCL 25 MG TABLET PO (08:55)
[2024-06-07] MEDS: LORazepam 1 MG TABLET PO ×3 (08:55→21:12)
[2024-06-07] MEDS: Metoprolol Succinate ER 25 MG TAB.ER.24H PO (08:56)
[2024-06-07] MEDS: guanFACINE HCl ER 1 MG TAB.ER.24H PO (08:56)
[2024-06-07] MEDS: fluPHENAZine HCl 5 MG TABLET 10 MG PO ×2 (08:56→21:13)
[2024-06-07] MEDS: Divalproex Sodium ER 500 MG TAB.ER.24H PO ×2 (08:56→21:11)
[2024-06-07] MEDS: OLANZapine 10 MG TABLET PO ×2 (08:57→21:13)
[2024-06-07] MEDS: amLODIPine Besylate 5 MG TABLET PO (08:57)
[2024-06-07] MEDS: Gabapentin 300 MG CAPSULE PO ×3 (08:57→21:13)
--- NOTE | 2024-06-07 09:49 | HO.PSYCHPN ---
Subjective Subjective Date of Service: 06/07/24 Reason For Visit: schizoaffective disorder, bipolar type Interim History: met with patient; discussed with team Patient remains delirious, with paranoid delusions, disorganized speech and behavior. Accidentally intrusive to others, went into peers room and laid on the bed thinking it was hers. Patient placed on one-to-one due to intrusiveness out of concern for her own safety in the milieu as she is irritating peers. Patient unable to engage in meaningful conversation. On approach patient asked screenplay writer if she and screenplay writer had a baby together; when screenplay writer said no patient said she no longer wanted to talk to screenplay writer and walked away. Earlier in the day she was lying on the floor saying she was giving to a baby. Or[employer]ctor will Invoke HCP who is her son; copy of proxy on file Diagnostics Vital Signs (24Hr): Vital Signs - 24 hr 06/07/24 08:00 Temperature 97.7 F Pulse Rate 70 Respiratory Rate 16 Blood Pressure 136/67 Pulse Oximetry 97 Oxygen Delivery Method Room Air BMI result Body Mass Index 22.3 Labs 06/03/24 07:22 06/03/24 07:22 Labs: Laboratory Results - last 48 hr 06/05/24 06/06/24 06/07/24 09:49 08:14 07:55 POC Glucose 82 102 91 Medications Medications Current Medications Acetaminophen (Acetaminophen 325 Mg Tablet) 650 mg PO Q6H PRN PRN Reason: Headache/Pain Mild Scale (1-3) Al Hydroxide/Mg Hydroxide (Magnesium Hydrox/Alum Hydrox 30 Ml Oral.Susp) 30 ml PO Q6H PRN PRN Reason: Heartburn/Nausea Amlodipine Besylate (Amlodipine Besylate 5 Mg Tablet) 5 mg PO DAILY [facility]; Protocol Last Admin: 06/07/24 08:57 Dose: 5 mg Benztropine Mesylate (Benztropine Mesylate 1 Mg Tablet) 1 mg PO BID [facility] Last Admin: 06/07/24 08:55 Dose: 1 mg Divalproex Sodium (Divalproex Sodium Er 500 Mg Tab.Er.24h) 500 mg PO BID [facility] Last Admin: 06/07/24 08:56 Dose: 500 mg Fluphenazine HCl (Fluphenazine Hcl 5 Mg Tablet) 10 mg PO BID [facility] Last Admin: 06/07/24 08:56 Dose: 10 mg Gabapentin (Gabapentin 300 Mg Capsule) 300 mg PO TID [facility] Last Admin: 06/07/24 08:57 Dose: 300 mg Guanfacine HCl (Guanfacine Hcl Er 1 Mg Tab.Er.24h) 1 mg PO DAILY [facility] Last Admin: 06/07/24 08:56 Dose: 1 mg Hydroxyzine HCl (Hydroxyzine Hcl 25 Mg Tablet) 25 mg PO BID [facility] Last Admin: 06/07/24 08:55 Dose: 25 mg Lorazepam (Lorazepam 1 Mg Tablet) 1 mg PO TID [facility] Last Admin: 06/07/24 08:55 Dose: 1 mg Magnesium Hydroxide (Milk Of Magnesia 30 Ml Oral.Susp) 30 ml PO DAILY PRN PRN Reason: Constipation Metoprolol Succinate (Metoprolol Succinate Er 25 Mg Tab.Er.24h) 25 mg PO DAILY [facility]; Protocol Last Admin: 06/07/24 08:56 Dose: 25 mg Nicotine (Nicotine 14 Mg Patch.Td24) 14 mg TRANSDERMA DAILY PRN PRN Reason: Nicotine Cravings Nicotine Polacrilex (Nicotine Polacrilex Lozenge 4 Mg Lozenge) 4 mg BUCCAL Q2H PRN PRN Reason: Nicotine Cravings Olanzapine (Olanzapine 10 Mg Tablet) 10 mg PO BID [facility] Last Admin: 06/07/24 08:57 Dose: 10 mg Trazodone HCl (Trazodone Hcl 50 Mg Tablet) 50 mg PO BEDTIME MRX1 PRN PRN Reason: Insomnia Last Admin: 06/06/24 23:50 Dose: 50 mg Venlafaxine HCl (Venlafaxine Hcl 25 Mg Tablet) 37.5 mg PO DAILY [facility] Last Admin: 06/07/24 08:55 Dose: 37.5 mg Allergies Allergies Allergy/AdvReac Type Severity Reaction Status Date / Time Sulfa (Sulfonamide AdvReac Mild Nausea and Verified 06/01/24 23:32 Antibiotics) Vomiting amoxicillin [From Augmentin] AdvReac Nausea and Verified 06/02/24 00:04 Vomiting clavulanic acid AdvReac Nausea and Verified 06/02/24 00:04 [From Augmentin] Vomiting Assessment & Plan Assessment & Plan (1) Schizoaffective disorder, bipolar type: Status: Acute Code(s): F25.0 - Schizoaffective disorder, bipolar type (2) HTN (hypertension): Status: Acute Code(s): I10 - Essential (primary) hypertension (3) HLD (hyperlipidemia): Status: Acute Code(s): E78.5 - Hyperlipidemia, unspecified (4) Prediabetes: Status: Acute Code(s): R73.03 - Prediabetes Plan HPI: Negar is a 64-year-old white, female with history of schizoaffective disorder, generalized anxiety disorder and PTSD who was taken to [facility] in [facility] from her rest home, [facility] for agitation and psychosis. She had been living in this facility since April. She has been showing signs of decompensation recently and appears to be psychotic, agitated and aggressively acting towards staff and patients. She had been evaluated earlier in May at the same hospital for similar presentation. She has been medication compliant. She is not able to give any pertinent information and appears to be delusional, tangential, paranoid. She admits to auditory and visual hallucinations. Current medications include Cogentin 1 mg b.i.d., Prolixin 10 mg b.i.d., gabapentin 300 mg t.i.d., Intuniv 1 mg daily, Ativan 1 mg t.i.d., metoprolol 25 mg daily, Effexor 75 mg daily, Zyprexa 10 mg b.i.d., amlodipine 5 mg daily. Her EKG revealed bradycardia and left axis deviation. She was sent here after all the bed search in the [place] part of the [facility] was exhausted. She is able to return to the rest home that is keeping the bed for 20 days impression: psychotic but also possibly with some delirium...labs unremarkable thus far. Also seems to be improving some. Will Need collateral. Hospital course: 06/04 pt sometimes responds in organized way but also expressing paranoid, delusional thoughts; labile, will all of sudden start crying. Pt says she has to let government know there are devils and witches in the nursing homes...Says her kids abandoned her at skilled nursing...Starts pointing to writers computer and says she can see a snake moving; points to door and says she sees people (which are not there). -knows name, , where she lives ([facility]), date (month, year) and where she is now, but not why. -gives verbal permission to call her son Jani. 06/05 continue tx 06/06 consider tapering off venlafaxine as it may worsen psychosis and delusions. will lower to 37.5mg po daily. continue prolixin and olanzapine. 06/07 Patient remains delirious, with paranoid delusions, disorganized speech and behavior. Accidentally intrusive to others, went into peers room and laid on the bed thinking it was hers. Patient placed on one-to-one due to intrusiveness out of concern for her own safety in the milieu as she is irritating peers. Patient unable to engage in meaningful conversation. On approach patient asked screenplay writer if she and screenplay writer had a baby together; when screenplay writer said no patient said she no longer wanted to talk to screenplay writer and walked away. Earlier in the day she was lying on the floor saying she was giving to a baby. Supposedly patient was stable on medications from s to 2018 until her . Since then she has remained decompensated and been hospitalized numerous times over the past year. -Or[employer]rector will Invoke HCP who is her son; copy of proxy on file -screenplay writer trying to get a hold of outpatient prescriber and practical nursing faculty to get more detail history and medication regimen INVOKED HCP on 06/07 Plan: 12b; now on Section 7 INVOKED HCP on 06/07 gather collateral continue home meds Patient educated on: diagnosis Informed Consent: does not understand Reason for continued inpatient stay Substantial Risk for: inability to function Time Spent With Patient Time: Total time managing care of this patient today ____ minutes.
[2024-06-07 10:01] VITALS: BMI 21.7
[2024-06-07 20:00] VITALS: BP 146/68; PULSE 71; TEMP 36.5; O2SAT 99
[2024-06-08 08:43] LABS: Glucose, Whole Blood 113 mg/dL (60-115)
[2024-06-08] MEDS: Divalproex Sodium ER 500 MG TAB.ER.24H PO ×2 (09:49→20:50)
[2024-06-08] MEDS: OLANZapine 10 MG TABLET PO ×2 (09:50→20:50)
--- NOTE | 2024-06-08 11:38 | P.PNPSI_ITS ---
Subjective Subjective Date of Service: 06/08/24 Reason For Visit: schizoaffective disorder, bipolar type Interim History: Met with patient; discussed with team Patient remains disorganized speech and behavior, wandering around the unit seemingly aimlessly; talking to her self about various things; saying something about the Devil and babies. pt says this place is nice enough... but pt can't say if she wants to stay her or go; she is tearful perseverating on the idea that her children abandoned her... -immediately refusing meds; nursing going back and trying to really offer throughout the day; so far patient has eventually taking the medications Mental Status Exam Mental Status Exam Narrative: Pt is alert and oriented to self, more less time and place; behavior is disorganized, labile, wandering aimlessly, talking to herself; dressed in casual attire, unkempt; mood is described as labile and affect congruent; eye contact avoidant; Speech is often mumbled, somewhat pressured and with a constant rambling; intermittently both psychomotor agitation/retardation present; thought process can be goal oriented but also tangential; Thought content is on paranoid, delusional ideas about devils; perseverating on being abandoned by her children; denies any SI/HI. AVH intermittently present; Patients insight and judgment impaired Diagnostics Vital Signs (24Hr): Vital Signs - 24 hr 06/07/24 20:00 Temperature 97.7 F Pulse Rate 71 Blood Pressure 146/68 H Pulse Oximetry 99 Oxygen Delivery Method Room Air BMI result Body Mass Index 21.7 Labs 06/03/24 07:22 06/03/24 07:22 Labs: Laboratory Results - last 48 hr 06/07/24 06/08/24 07:55 08:35 POC Glucose 91 113 Medications Medications Current Medications Acetaminophen (Acetaminophen 325 Mg Tablet) 650 mg PO Q6H PRN PRN Reason: Headache/Pain Mild Scale (1-3) Al Hydroxide/Mg Hydroxide (Magnesium Hydrox/Alum Hydrox 30 Ml Oral.Susp) 30 ml PO Q6H PRN PRN Reason: Heartburn/Nausea Amlodipine Besylate (Amlodipine Besylate 5 Mg Tablet) 5 mg PO DAILY [facility]; Protocol Last Admin: 06/07/24 08:57 Dose: 5 mg Benztropine Mesylate (Benztropine Mesylate 1 Mg Tablet) 1 mg PO BID [facility] Last Admin: 06/07/24 21:28 Dose: Not Given Divalproex Sodium (Divalproex Sodium Er 500 Mg Tab.Er.24h) 500 mg PO BID [facility] Last Admin: 06/08/24 09:49 Dose: 500 mg Fluphenazine HCl (Fluphenazine Hcl 5 Mg Tablet) 10 mg PO BID [facility] Last Admin: 06/07/24 21:13 Dose: 10 mg Gabapentin (Gabapentin 300 Mg Capsule) 300 mg PO TID [facility] Last Admin: 06/07/24 21:13 Dose: 300 mg Guanfacine HCl (Guanfacine Hcl Er 1 Mg Tab.Er.24h) 1 mg PO DAILY [facility] Last Admin: 06/07/24 08:56 Dose: 1 mg Hydroxyzine HCl (Hydroxyzine Hcl 25 Mg Tablet) 25 mg PO BID [facility] Last Admin: 06/07/24 21:28 Dose: Not Given Lorazepam (Lorazepam 1 Mg Tablet) 1 mg PO TID [facility] Last Admin: 06/07/24 21:12 Dose: 1 mg Magnesium Hydroxide (Milk Of Magnesia 30 Ml Oral.Susp) 30 ml PO DAILY PRN PRN Reason: Constipation Metoprolol Succinate (Metoprolol Succinate Er 25 Mg Tab.Er.24h) 25 mg PO DAILY [facility]; Protocol Last Admin: 06/07/24 08:56 Dose: 25 mg Nicotine (Nicotine 14 Mg Patch.Td24) 14 mg TRANSDERMA DAILY PRN PRN Reason: Nicotine Cravings Nicotine Polacrilex (Nicotine Polacrilex Lozenge 4 Mg Lozenge) 4 mg BUCCAL Q2H PRN PRN Reason: Nicotine Cravings Olanzapine (Olanzapine 10 Mg Tablet) 10 mg PO BID [facility] Last Admin: 06/08/24 09:50 Dose: 10 mg Trazodone HCl (Trazodone Hcl 50 Mg Tablet) 50 mg PO BEDTIME MRX1 PRN PRN Reason: Insomnia Last Admin: 06/06/24 23:50 Dose: 50 mg Venlafaxine HCl (Venlafaxine Hcl 25 Mg Tablet) 37.5 mg PO DAILY [facility] Last Admin: 06/07/24 08:55 Dose: 37.5 mg Allergies Allergies Allergy/AdvReac Type Severity Reaction Status Date / Time Sulfa (Sulfonamide AdvReac Mild Nausea and Verified 06/01/24 23:32 Antibiotics) Vomiting amoxicillin [From Augmentin] AdvReac Nausea and Verified 06/02/24 00:04 Vomiting clavulanic acid AdvReac Nausea and Verified 06/02/24 00:04 [From Augmentin] Vomiting Assessment & Plan Assessment & Plan (1) Schizoaffective disorder, bipolar type: Status: Acute Code(s): F25.0 - Schizoaffective disorder, bipolar type (2) HTN (hypertension): Status: Acute Code(s): I10 - Essential (primary) hypertension (3) HLD (hyperlipidemia): Status: Acute Code(s): E78.5 - Hyperlipidemia, unspecified (4) Prediabetes: Status: Acute Code(s): R73.03 - Prediabetes Plan HPI: Negar is a 64-year-old white, female with history of schizoaffective disorder, generalized anxiety disorder and PTSD who was taken to [facility] in [facility] from her rest home, [facility] for agitation and psychosis. She had been living in this facility since April. She has been showing signs of decompensation recently and appears to be psychotic, agitated and aggressively acting towards staff and patients. She had been evaluated earlier in May at the same hospital for similar presentation. She has been medication compliant. She is not able to give any pertinent information and appears to be delusional, tangential, paranoid. She admits to auditory and visual hallucinations. Current medications include Cogentin 1 mg b.i.d., Prolixin 10 mg b.i.d., gabapentin 300 mg t.i.d., Intuniv 1 mg daily, Ativan 1 mg t.i.d., metoprolol 25 mg daily, Effexor 75 mg daily, Zyprexa 10 mg b.i.d., amlodipine 5 mg daily. Her EKG revealed bradycardia and left axis deviation. She was sent here after all the bed search [place] [facility] was exhausted. She is able to return to the rest home that is keeping the bed for 20 days impression: psychotic but also possibly with some delirium...labs unremarkable thus far. Also seems to be improving some. Will Need collateral. Hospital course: 06/04 pt sometimes responds in organized way but also expressing paranoid, delusional thoughts; labile, will all of sudden start crying. Pt says she has to let government know there are devils and witches in the nursing homes...Says her kids abandoned her at correction...Starts pointing to writers computer and says she can see a snake moving; points to door and says she sees people (which are not there). -knows name, , where she lives ([facility]), date (month, year) and where she is now, but not why. -gives verbal permission to call her son Jani. 06/05 continue tx 06/06 consider tapering off venlafaxine as it may worsen psychosis and delusions. will lower to 37.5mg po daily. continue prolixin and olanzapine. 06/07 Patient remains delirious, with paranoid delusions, disorganized speech and behavior. Accidentally intrusive to others, went into peers room and laid on the bed thinking it was hers. Patient placed on one-to-one due to intrusiveness out of concern for her own safety in the milieu as she is irritating peers. Patient unable to engage in meaningful conversation. On approach patient asked comic writer if she and comic writer had a baby together; when comic writer said no patient said she no longer wanted to talk to comic writer and walked away. Earlier in the day she was lying on the floor saying she was giving to a baby. Supposedly patient was stable on medications from s to 2018 until her . Since then she has remained decompensated and been hospitalized numerous times over the past year. -Ham Curer will Invoke HCP who is her son; copy of proxy on file -comic writer trying to get a hold of outpatient prescriber and nursing admin to get more detail history and medication regimen 06/08 remains floridly disorganized speech and behavior; frequently refuses take medications; eventually after nurses re-offer patient ends up taking them Plan: 12b; now on Section 7 INVOKED HCP on 06/07 gather collateral continue home meds effexor lowered Patient educated on: diagnosis and medication risk/benefits Informed Consent: does not understand Reason for continued inpatient stay Substantial Risk for: inability to function Time Spent With Patient Time: Total time managing care of this patient today ____ minutes.
[2024-06-08] MEDS: fluPHENAZine HCl 5 MG TABLET 10 MG PO ×2 (12:04→20:50)
[2024-06-08 12:37] LABS: Glucose, Whole Blood 112 mg/dL (60-115)
[2024-06-08 12:45] VITALS: BP 123/73; PULSE 72; RESP 16; TEMP 36.9; O2SAT 98
[2024-06-08] MEDS: LORazepam 1 MG TABLET PO ×2 (15:49→20:50)
[2024-06-08] MEDS: Venlafaxine HCL 25 MG TABLET 37.5 MG PO (15:49)
[2024-06-08] MEDS: guanFACINE HCl ER 1 MG TAB.ER.24H PO (15:49)
[2024-06-08 20:25] VITALS: BP 144/68; PULSE 75; TEMP 36.4; O2SAT 98
[2024-06-08] MEDS: Benztropine Mesylate 1 MG TABLET PO (20:50)
[2024-06-08] MEDS: hydrOXYzine HCL 25 MG TABLET PO (20:50)
[2024-06-08] MEDS: Gabapentin 300 MG CAPSULE PO (20:50)
[2024-06-09 07:56] LABS: Glucose, Whole Blood 78 mg/dL (60-115)
[2024-06-09 08:00] VITALS: BP 181/113; PULSE 79; RESP 16; TEMP 36.3; O2SAT 99
[2024-06-09] MEDS: OLANZapine 10 MG TABLET PO ×2 (08:12→21:00)
[2024-06-09] MEDS: Benztropine Mesylate 1 MG TABLET PO ×2 (08:12→21:00)
[2024-06-09] MEDS: Venlafaxine HCL 25 MG TABLET 37.5 MG PO (08:12)
[2024-06-09] MEDS: LORazepam 1 MG TABLET PO ×3 (08:12→21:00)
[2024-06-09] MEDS: guanFACINE HCl ER 1 MG TAB.ER.24H PO (08:12)
[2024-06-09] MEDS: hydrOXYzine HCL 25 MG TABLET PO ×2 (08:12→21:00)
[2024-06-09] MEDS: amLODIPine Besylate 5 MG TABLET PO (08:12)
[2024-06-09] MEDS: Gabapentin 300 MG CAPSULE PO ×3 (08:12→21:00)
[2024-06-09] MEDS: Metoprolol Succinate ER 25 MG TAB.ER.24H PO (08:12)
[2024-06-09] MEDS: Divalproex Sodium ER 500 MG TAB.ER.24H PO ×2 (08:13→21:00)
[2024-06-09] MEDS: fluPHENAZine HCl 5 MG TABLET 10 MG PO ×2 (08:13→21:00)
--- NOTE | 2024-06-09 09:57 | P.PNPSI_ITS ---
Subjective Subjective Date of Service: 06/09/24 Reason For Visit: schizoaffective disorder, bipolar type Interim History: Met with patient; discussed with team No change in presentation; very difficult with which to engage, mumbling to self about being abandoned by her kids. Initially HTN as refused amlodipine last night; retaking after patient got amlodipine dose today and BP WNL Mental Status Exam Mental Status Exam Narrative: Pt is alert and oriented to self, more less time and place; behavior is disorganized, labile, wandering aimlessly, talking to herself; dressed in casual attire, unkempt; mood is described as labile and affect congruent; eye contact avoidant; Speech is often mumbled, somewhat pressured and with a constant rambling; intermittently both psychomotor agitation/retardation present; thought process can be goal oriented but also tangential; Thought content is on paranoid, delusional ideas about devils; perseverating on being abandoned by her children; denies any SI/HI. AVH intermittently present; Patients insight and judgment impaired Diagnostics Vital Signs (24Hr): Vital Signs - 24 hr 06/08/24 12:45 06/08/24 20:25 06/09/24 08:00 Temperature 98.5 F 97.6 F 97.3 F Pulse Rate 72 75 79 Respiratory Rate 16 16 Blood Pressure 123/73 144/68 H 181/113 H Pulse Oximetry 98 98 99 Oxygen Delivery Method Room Air Room Air Room Air BMI result Body Mass Index 21.7 Labs 06/03/24 07:22 06/03/24 07:22 Labs: Laboratory Results - last 48 hr 06/08/24 06/08/24 06/09/24 08:35 12:33 07:52 POC Glucose 113 112 78 Medications Medications Current Medications Acetaminophen (Acetaminophen 325 Mg Tablet) 650 mg PO Q6H PRN PRN Reason: Headache/Pain Mild Scale (1-3) Al Hydroxide/Mg Hydroxide (Magnesium Hydrox/Alum Hydrox 30 Ml Oral.Susp) 30 ml PO Q6H PRN PRN Reason: Heartburn/Nausea Amlodipine Besylate (Amlodipine Besylate 5 Mg Tablet) 5 mg PO DAILY [facility]; Protocol Last Admin: 06/09/24 08:12 Dose: 5 mg Benztropine Mesylate (Benztropine Mesylate 1 Mg Tablet) 1 mg PO BID [facility] Last Admin: 06/09/24 08:12 Dose: 1 mg Divalproex Sodium (Divalproex Sodium Er 500 Mg Tab.Er.24h) 500 mg PO BID [facility] Last Admin: 06/09/24 08:13 Dose: 500 mg Fluphenazine HCl (Fluphenazine Hcl 5 Mg Tablet) 10 mg PO BID [facility] Last Admin: 06/09/24 08:13 Dose: 10 mg Gabapentin (Gabapentin 300 Mg Capsule) 300 mg PO TID [facility] Last Admin: 06/09/24 08:12 Dose: 300 mg Guanfacine HCl (Guanfacine Hcl Er 1 Mg Tab.Er.24h) 1 mg PO DAILY [facility] Last Admin: 06/09/24 08:12 Dose: 1 mg Hydroxyzine HCl (Hydroxyzine Hcl 25 Mg Tablet) 25 mg PO BID [facility] Last Admin: 06/09/24 08:12 Dose: 25 mg Lorazepam (Lorazepam 1 Mg Tablet) 1 mg PO TID [facility] Last Admin: 06/09/24 08:12 Dose: 1 mg Magnesium Hydroxide (Milk Of Magnesia 30 Ml Oral.Susp) 30 ml PO DAILY PRN PRN Reason: Constipation Metoprolol Succinate (Metoprolol Succinate Er 25 Mg Tab.Er.24h) 25 mg PO DAILY [facility]; Protocol Last Admin: 06/09/24 08:12 Dose: 25 mg Nicotine (Nicotine 14 Mg Patch.Td24) 14 mg TRANSDERMA DAILY PRN PRN Reason: Nicotine Cravings Nicotine Polacrilex (Nicotine Polacrilex Lozenge 4 Mg Lozenge) 4 mg BUCCAL Q2H PRN PRN Reason: Nicotine Cravings Olanzapine (Olanzapine 10 Mg Tablet) 10 mg PO BID [facility] Last Admin: 06/09/24 08:12 Dose: 10 mg Trazodone HCl (Trazodone Hcl 50 Mg Tablet) 50 mg PO BEDTIME MRX1 PRN PRN Reason: Insomnia Last Admin: 06/06/24 23:50 Dose: 50 mg Venlafaxine HCl (Venlafaxine Hcl 25 Mg Tablet) 37.5 mg PO DAILY [facility] Last Admin: 06/09/24 08:12 Dose: 37.5 mg Allergies Allergies Allergy/AdvReac Type Severity Reaction Status Date / Time Sulfa (Sulfonamide AdvReac Mild Nausea and Verified 06/01/24 23:32 Antibiotics) Vomiting amoxicillin [From Augmentin] AdvReac Nausea and Verified 06/02/24 00:04 Vomiting clavulanic acid AdvReac Nausea and Verified 06/02/24 00:04 [From Augmentin] Vomiting Assessment & Plan Assessment & Plan (1) Schizoaffective disorder, bipolar type: Status: Acute Code(s): F25.0 - Schizoaffective disorder, bipolar type (2) HTN (hypertension): Status: Acute Code(s): I10 - Essential (primary) hypertension (3) HLD (hyperlipidemia): Status: Acute Code(s): E78.5 - Hyperlipidemia, unspecified (4) Prediabetes: Status: Acute Code(s): R73.03 - Prediabetes Plan HPI: Negar is a 64-year-old white, female with history of schizoaffective disorder, generalized anxiety disorder and PTSD who was taken to [facility] in [facility] from her rest home, [facility] for agitation and psychosis. She had been living in this facility since April. She has been showing signs of decompensation recently and appears to be psychotic, agitated and aggressively acting towards staff and patients. She had been evaluated earlier in May at the same hospital for similar presentation. She has been medication compliant. She is not able to give any pertinent information and appears to be delusional, tangential, paranoid. She admits to auditory and visual hallucinations. Current medications include Cogentin 1 mg b.i.d., Prolixin 10 mg b.i.d., gabapentin 300 mg t.i.d., Intuniv 1 mg daily, Ativan 1 mg t.i.d., metoprolol 25 mg daily, Effexor 75 mg daily, Zyprexa 10 mg b.i.d., amlodipine 5 mg daily. Her EKG revealed bradycardia and left axis deviation. She was sent here after all the bed search in the [place] part of the [facility] was exhausted. She is able to return to the rest home that is keeping the bed for 20 days impression: psychotic but also possibly with some delirium...labs unremarkable thus far. Also seems to be improving some. Will Need collateral. Hospital course: 06/04 pt sometimes responds in organized way but also expressing paranoid, delusional thoughts; labile, will all of sudden start crying. Pt says she has to let government know there are devils and witches in the nursing homes...Says her kids abandoned her at longterm...Starts pointing to writers computer and says she can see a snake moving; points to door and says she sees people (which are not there). -knows name, , where she lives ([facility]), date (month, year) and where she is now, but not why. -gives verbal permission to call her son Jani. 06/05 continue tx 06/06 consider tapering off venlafaxine as it may worsen psychosis and delusions. will lower to 37.5mg po daily. continue prolixin and olanzapine. 06/07 Patient remains delirious, with paranoid delusions, disorganized speech and behavior. Accidentally intrusive to others, went into peers room and laid on the bed thinking it was hers. Patient placed on one-to-one due to intrusiveness out of concern for her own safety in the milieu as she is irritating peers. Patient unable to engage in meaningful conversation. On approach patient asked card writer hand if she and card writer hand had a baby together; when card writer hand said no patient said she no longer wanted to talk to card writer hand and walked away. Earlier in the day she was lying on the floor saying she was giving to a baby. Supposedly patient was stable on medications from s to 2018 until her . Since then she has remained decompensated and been hospitalized numerous times over the past year. -Wheelchair Van Operator First Responder will Invoke HCP who is her son; copy of proxy on file -card writer hand trying to get a hold of outpatient prescriber and professor of nursing to get more detail history and medication regimen 06/08 remains floridly disorganized speech and behavior; frequently refuses take medications; eventually after nurses re-offer patient ends up taking them 06/09 same presentation; continue regimen Plan: 12b; now on Section 7 INVOKED HCP on 06/07 gather collateral continue home meds effexor lowered Patient educated on: diagnosis Informed Consent: does not understand Reason for continued inpatient stay Substantial Risk for: inability to function Time Spent With Patient Time: Total time managing care of this patient today ____ minutes.
[2024-06-09 10:46] VITALS: BP 124/62; PULSE 72
[2024-06-09 20:57] VITALS: BP 164/76; PULSE 62; TEMP 36.3; O2SAT 100
[2024-06-09 21:00] VITALS: BP 164/76; PULSE 62; TEMP 2.4; TEMP 36.3; O2SAT 100
[2024-06-09] MEDS: traZODone HCL 50 MG TABLET PO (21:00)
--- NOTE | 2024-06-09 21:28 | PC.NURSE ---
At approximately 2049 patient attempted to stand from a sitting position to standing with her 1;1
--- NOTE | 2024-06-09 21:31 | PC.NURSE ---
At approximately 2049, Negar was sitting on side of bed in Group Room B facing the wall with her 1:1. She attempted to human resources benefits administrator the small space between the bed and the wall, became unsteady and lightly fell against wall. Patient remained in a standing position and was assisted back to bed by staff. Vital signs were taken. Provider notified. Following incidenet khoi took HS medications and was observed sitting at table eating her dinner. Will continue to monitor.
[2024-06-09 22:53] VITALS: BP 164/76; PULSE 62; RESP 18; TEMP 36.3; O2SAT 100
[2024-06-09 23:30] VITALS: BP 116/64
[2024-06-10 08:31] LABS: Glucose, Whole Blood 99 mg/dL (60-115)
[2024-06-10] MEDS: Venlafaxine HCL 25 MG TABLET 37.5 MG PO (08:56)
[2024-06-10] MEDS: fluPHENAZine HCl 5 MG TABLET 10 MG PO ×2 (08:58→20:52)
[2024-06-10] MEDS: guanFACINE HCl ER 1 MG TAB.ER.24H PO (08:59)
[2024-06-10] MEDS: Divalproex Sodium ER 500 MG TAB.ER.24H PO ×2 (08:59→20:52)
[2024-06-10] MEDS: Gabapentin 300 MG CAPSULE PO ×3 (08:59→20:52)
[2024-06-10 09:00] VITALS: BP 149/72; PULSE 78; RESP 16; TEMP 36.6; O2SAT 95
[2024-06-10] MEDS: Metoprolol Succinate ER 25 MG TAB.ER.24H PO (09:00)
[2024-06-10] MEDS: hydrOXYzine HCL 25 MG TABLET PO (09:00)
[2024-06-10 09:01] VITALS: BP 149/72
[2024-06-10] MEDS: LORazepam 1 MG TABLET PO ×3 (09:01→20:51)
[2024-06-10] MEDS: Benztropine Mesylate 1 MG TABLET PO ×2 (09:01→20:52)
[2024-06-10] MEDS: amLODIPine Besylate 5 MG TABLET PO (09:01)
[2024-06-10] MEDS: OLANZapine 10 MG TABLET PO ×2 (09:05→20:52)
--- NOTE | 2024-06-10 14:59 | HO.PSYCHPN ---
Subjective Subjective Date of Service: 06/10/24 Reason For Visit: schizoaffective disorder, bipolar type Interim History: Late entry note for patient seen on 06/10 Patient remains delusional, disorganized, crying about things that have happened in the past and seems unable to differentiate time. Unable to engage in meaningful conversation. Staff reports some increase dysregulation in the evening time. Lowered Zyprexa to bedtime to see if could minimize daytime sedation and help with evening time dysregulation Discontinued hydroxyzine as it is anticholinergic and could be dysregulated Considered lowering Ativan however as this is outpatient medication decided to leave as is for now; same with gabapentin Discontinued POC; they have been within normal throughout her admission; currently unnecessary and causes patient distress Mental Status Exam Mental Status Exam Narrative: Pt is alert and oriented to self, more less time and place; behavior is disorganized, labile, wandering aimlessly, talking to herself; dressed in casual attire, unkempt; mood is described as labile and affect congruent; eye contact avoidant; Speech is often mumbled, somewhat pressured and with a constant rambling; intermittently both psychomotor agitation/retardation present; thought process can be goal oriented but also tangential; Thought content is on paranoid, delusional ideas about devils; perseverating on being abandoned by her children; denies any SI/HI. AVH intermittently present; Patients insight and judgment impaired Diagnostics Vital Signs (24Hr): Vital Signs - 24 hr 06/09/24 20:57 06/09/24 21:00 06/09/24 22:53 Temperature 97.3 F 36.3 F L 97.3 F Pulse Rate 62 62 62 Respiratory Rate 18 Blood Pressure 164/76 H 164/76 H 164/76 H Pulse Oximetry 100 100 100 Oxygen Delivery Method Room Air Room Air 06/09/24 23:30 06/10/24 09:00 06/10/24 09:00 Temperature 97.9 F Pulse Rate 78 78 Respiratory Rate 16 Blood Pressure 116/64 149/72 H 149/72 H Pulse Oximetry 95 Oxygen Delivery Method Room Air 06/10/24 09:01 Temperature Pulse Rate Respiratory Rate Blood Pressure 149/72 H Pulse Oximetry Oxygen Delivery Method BMI result Body Mass Index 21.7 Labs 06/03/24 07:22 06/03/24 07:22 Labs: Laboratory Results - last 48 hr 06/09/24 06/10/24 07:52 08:24 POC Glucose 78 99 Medications Medications Current Medications Acetaminophen (Acetaminophen 325 Mg Tablet) 650 mg PO Q6H PRN PRN Reason: Headache/Pain Mild Scale (1-3) Al Hydroxide/Mg Hydroxide (Magnesium Hydrox/Alum Hydrox 30 Ml Oral.Susp) 30 ml PO Q6H PRN PRN Reason: Heartburn/Nausea Amlodipine Besylate (Amlodipine Besylate 5 Mg Tablet) 5 mg PO DAILY [facility]; Protocol Last Admin: 06/10/24 09:01 Dose: 5 mg Benztropine Mesylate (Benztropine Mesylate 1 Mg Tablet) 1 mg PO BID [facility] Last Admin: 06/10/24 09:01 Dose: 1 mg Divalproex Sodium (Divalproex Sodium Er 500 Mg Tab.Er.24h) 500 mg PO BID [facility] Last Admin: 06/10/24 08:59 Dose: 500 mg Fluphenazine HCl (Fluphenazine Hcl 5 Mg Tablet) 10 mg PO BID [facility] Last Admin: 06/10/24 08:58 Dose: 10 mg Gabapentin (Gabapentin 300 Mg Capsule) 300 mg PO TID [facility] Last Admin: 06/10/24 08:59 Dose: 300 mg Guanfacine HCl (Guanfacine Hcl Er 1 Mg Tab.Er.24h) 1 mg PO DAILY [facility] Last Admin: 06/10/24 08:59 Dose: 1 mg Hydroxyzine HCl (Hydroxyzine Hcl 25 Mg Tablet) 25 mg PO BID [facility] Last Admin: 06/10/24 09:00 Dose: 25 mg Lorazepam (Lorazepam 1 Mg Tablet) 1 mg PO TID [facility] Last Admin: 06/10/24 09:01 Dose: 1 mg Magnesium Hydroxide (Milk Of Magnesia 30 Ml Oral.Susp) 30 ml PO DAILY PRN PRN Reason: Constipation Metoprolol Succinate (Metoprolol Succinate Er 25 Mg Tab.Er.24h) 25 mg PO DAILY [facility]; Protocol Last Admin: 06/10/24 09:00 Dose: 25 mg Nicotine (Nicotine 14 Mg Patch.Td24) 14 mg TRANSDERMA DAILY PRN PRN Reason: Nicotine Cravings Nicotine Polacrilex (Nicotine Polacrilex Lozenge 4 Mg Lozenge) 4 mg BUCCAL Q2H PRN PRN Reason: Nicotine Cravings Olanzapine (Olanzapine 10 Mg Tablet) 10 mg PO BID [facility] Stop: 06/10/24 21:00 Last Admin: 06/10/24 09:05 Dose: 10 mg Trazodone HCl (Trazodone Hcl 50 Mg Tablet) 50 mg PO BEDTIME MRX1 PRN PRN Reason: Insomnia Last Admin: 06/09/24 21:00 Dose: 50 mg Venlafaxine HCl (Venlafaxine Hcl 25 Mg Tablet) 37.5 mg PO DAILY [facility] Last Admin: 06/10/24 08:56 Dose: 37.5 mg Allergies Allergies Allergy/AdvReac Type Severity Reaction Status Date / Time Sulfa (Sulfonamide AdvReac Mild Nausea and Verified 06/01/24 23:32 Antibiotics) Vomiting amoxicillin [From Augmentin] AdvReac Nausea and Verified 06/02/24 00:04 Vomiting clavulanic acid AdvReac Nausea and Verified 06/02/24 00:04 [From Augmentin] Vomiting Assessment & Plan Assessment & Plan (1) Schizoaffective disorder, bipolar type: Status: Acute Code(s): F25.0 - Schizoaffective disorder, bipolar type (2) HTN (hypertension): Status: Acute Code(s): I10 - Essential (primary) hypertension (3) HLD (hyperlipidemia): Status: Acute Code(s): E78.5 - Hyperlipidemia, unspecified (4) Prediabetes: Status: Acute Code(s): R73.03 - Prediabetes Plan HPI: Negar is a 64-year-old white, female with history of schizoaffective disorder, generalized anxiety disorder and PTSD who was taken to [facility] in [facility] from her rest home, [facility] [place] for agitation and psychosis. She had been living in this facility since April. She has been showing signs of decompensation recently and appears to be psychotic, agitated and aggressively acting towards staff and patients. She had been evaluated earlier in May at the same hospital for similar presentation. She has been medication compliant. She is not able to give any pertinent information and appears to be delusional, tangential, paranoid. She admits to auditory and visual hallucinations. Current medications include Cogentin 1 mg b.i.d., Prolixin 10 mg b.i.d., gabapentin 300 mg t.i.d., Intuniv 1 mg daily, Ativan 1 mg t.i.d., metoprolol 25 mg daily, Effexor 75 mg daily, Zyprexa 10 mg b.i.d., amlodipine 5 mg daily. Her EKG revealed bradycardia and left axis deviation. She was sent here after all the bed search in the [place] [facility] was exhausted. She is able to return to the rest home that is keeping the bed for 20 days impression: psychotic but also possibly with some delirium...labs unremarkable thus far. Also seems to be improving some. Will Need collateral. Hospital course: 06/04 pt sometimes responds in organized way but also expressing paranoid, delusional thoughts; labile, will all of sudden start crying. Pt says she has to let government know there are devils and witches in the nursing homes...Says her kids abandoned her at [facility]...Starts pointing to writers computer and says she can see a snake moving; points to door and says she sees people (which are not there). -knows name, , where she lives ([facility]), date (month, year) and where she is now, but not why. -gives verbal permission to call her son Jani. 06/05 continue tx 06/06 consider tapering off venlafaxine as it may worsen psychosis and delusions. will lower to 37.5mg po daily. continue prolixin and olanzapine. 06/07 Patient remains delirious, with paranoid delusions, disorganized speech and behavior. Accidentally intrusive to others, went into peers room and laid on the bed thinking it was hers. Patient placed on one-to-one due to intrusiveness out of concern for her own safety in the milieu as she is irritating peers. Patient unable to engage in meaningful conversation. On approach patient asked filing writer if she and filing writer had a baby together; when filing writer said no patient said she no longer wanted to talk to filing writer and walked away. Earlier in the day she was lying on the floor saying she was giving to a baby. Supposedly patient was stable on medications from s to 2018 until her . Since then she has remained decompensated and been hospitalized numerous times over the past year. -Assembler [employer] will Invoke HCP who is her son; copy of proxy on file -filing writer trying to get a hold of outpatient prescriber and licensed nursing assistant to get more detail history and medication regimen 06/08 remains floridly disorganized speech and behavior; frequently refuses take medications; eventually after nurses re-offer patient ends up taking them 06/09 same presentation; continue regimen 06/10 Patient remains delusional, disorganized, crying about things that have happened in the past and seems unable to differentiate time. Unable to engage in meaningful conversation. Staff reports some increase dysregulation in the evening time. Lowered Zyprexa to bedtime to see if could minimize daytime sedation and help with evening time dysregulation Discontinued hydroxyzine as it is anticholinergic and could be dysregulated Considered lowering Ativan however as this is outpatient medication decided to leave as is for now; same with gabapentin Discontinued POC; they have been within normal throughout her admission; currently unnecessary and causes patient distress Plan: 12b; now on Section 7 INVOKED HCP on 06/07 gather collateral continue home meds effexor lowered Patient educated on: diagnosis Informed Consent: does not understand Reason for continued inpatient stay Substantial Risk for: inability to function Time Spent With Patient Time: Total time managing care of this patient today ____ minutes.
[2024-06-10 20:00] VITALS: BP 152/77; PULSE 80; RESP 16; TEMP 37; O2SAT 99
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
[2024-06-11 09:40] VITALS: BP 128/69; PULSE 66; RESP 16; TEMP 36.4; O2SAT 97
[2024-06-11] MEDS: fluPHENAZine HCl 5 MG TABLET 10 MG PO ×2 (09:47→20:29)
[2024-06-11] MEDS: Metoprolol Succinate ER 25 MG TAB.ER.24H PO (09:47)
[2024-06-11] MEDS: Divalproex Sodium ER 500 MG TAB.ER.24H PO (09:48)
[2024-06-11] MEDS: Gabapentin 300 MG CAPSULE PO ×2 (09:48→20:29)
[2024-06-11] MEDS: LORazepam 1 MG TABLET PO (09:48)
[2024-06-11] MEDS: Benztropine Mesylate 1 MG TABLET PO ×2 (09:48→20:29)
[2024-06-11] MEDS: guanFACINE HCl ER 1 MG TAB.ER.24H PO (09:49)
[2024-06-11 09:50] VITALS: BP 128/66
[2024-06-11] MEDS: amLODIPine Besylate 5 MG TABLET PO (09:50)
[2024-06-11] MEDS: Venlafaxine HCL 25 MG TABLET 37.5 MG PO (09:52)
[2024-06-11] MEDS: LORazepam 0.5 MG TABLET PO ×2 (16:58→20:29)
--- NOTE | 2024-06-11 18:32 | PC.NURSE ---
At approximately 5:15pm while using the bathroom, Negar attempted to digitally remove her feces. She was assisted with washing up and with getting her pants back on. She became enraged with and screamed at her 1:1 staff person when she tried to get Negar to put her slip-free socks back on. It was noted that her urine was very concentrated so Negar (and her 1:1 staff person) was encouraged to hydrate frequently. She will also likely benefit from a dose of milk of magnesia at bedtime.
[2024-06-11 20:00] VITALS: BP 136/70; PULSE 102; RESP 18; TEMP 36.2; O2SAT 98
[2024-06-11] MEDS: OLANZapine 10 MG TABLET PO (20:29)
[2024-06-12] MEDS: traZODone HCL 50 MG TABLET PO (01:23)
[2024-06-12] MEDS: Acetaminophen 325 MG TABLET 650 MG PO ×2 (02:09→09:32)
[2024-06-12 08:00] VITALS: BP 134/73; PULSE 68; RESP 16; TEMP 36.4; O2SAT 98
[2024-06-12] MEDS: guanFACINE HCl ER 1 MG TAB.ER.24H PO (09:31)
[2024-06-12] MEDS: Gabapentin 300 MG CAPSULE PO ×3 (09:31→21:45)
[2024-06-12] MEDS: amLODIPine Besylate 5 MG TABLET PO (09:31)
[2024-06-12] MEDS: Venlafaxine HCL 25 MG TABLET 37.5 MG PO (09:31)
[2024-06-12] MEDS: Benztropine Mesylate 1 MG TABLET PO ×2 (09:33→21:45)
[2024-06-12] MEDS: LORazepam 0.5 MG TABLET PO ×4 (09:33→21:45)
[2024-06-12] MEDS: Divalproex Sodium ER 500 MG TAB.ER.24H PO ×2 (09:33→21:45)
[2024-06-12] MEDS: fluPHENAZine HCl 5 MG TABLET 10 MG PO ×2 (09:33→21:45)
[2024-06-12] MEDS: Metoprolol Succinate ER 25 MG TAB.ER.24H PO (09:34)
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
[2024-06-12] MEDS: polyethylene glycoL 3350 17 GM POWD.PACK PO (10:50)
[2024-06-12 18:49] LABS: MANUAL DIFF FLAG NO
[2024-06-12 18:57] LABS: Basophils Absolute Auto 0.1 X10*3/uL (0.0-0.2); Basophils Percent Auto 0.7 % (0-2); Eosinophils Absolute Auto 0.1 X10*3/uL (0.0-0.4); Eosinophils Percent Auto 1.6 % (0-4); Hematocrit 36.7 % (37.0-47.0); Hemoglobin 12.4 g/dl (12.0-16.0); Imm Gran Abs Auto 0.07 X10*3/uL (0.00-0.03); Imm Gran Pct Auto 0.8 % (0.0-0.4); Lymphocytes Absolute Auto 3.8 X10*3/uL (1.2-4.9); Lymphocytes Percent Auto 43.4 % (20-40); Mean Corpuscular HGB Conc 33.8 g/dl (31.0-35.0); Mean Corpuscular Volume 88.6 fL (80.0-98.0); Mean Platelet Volume 9.2 fL (9.4-12.3); Monocytes Absolute Auto 0.8 X10*3/uL (0.1-1.2); Neutrophils Absolute Auto 3.9 x10*3/uL (2.0-8.3); Neutrophils Percent Auto 44.5 % (45-73); Platelet Count 223 X10*3/uL (160-400); Red Blood Count 4.14 X10*6/uL (4.20-5.50); White Blood Count 8.7 X10*3/uL (4.8-10.8)
[2024-06-12 18:57] LABS: Ammonia 37 umol/L (13-55)
[2024-06-12 19:02] LABS: Appearance Urine Clear; Color Urine Yellow; Glucose Urine UA Negative (Negative); Leukocyte Esterase Urine Moderate (2+) (Negative); Nitrite Urine Negative (Negative); PH 6.5 (5.0-9.0); Specific Gravity - Urine 1.025 (1.005-1.025); UMIC TRIGGER UACC YES; Urine Blood Negative (Negative); Urine Ketones Trace mg/dL (Negative); Urine Protein Negative (Neg-Trace)
[2024-06-12 19:07] LABS: Bacteria Urine Trace (None Seen); Hyaline Casts Urine 0-2 /LPF (0-2); RBC Urine 0-2 /HPF (0-2); UACC Culture Trigger YES
[2024-06-12 19:08] LABS: Valproate 76.2 mcg/mL (50.0-100.0)
[2024-06-12 19:15] LABS: Alanine Aminotransferase 19 U/L (0-31); Albumin Level 4.2 g/dL (3.5-5.0); Alkaline Phosphatase 57 U/L (39-117); Anion Gap 13 (12-20); Aspartate Amino Transferase 17 U/L (5-31); Bilirubin Total 0.2 mg/dL (0.0-1.0); Blood Urea Nitrogen 19 mg/dL (9-16); Calcium 10.2 mg/dL (8.4-10.2); Carbon Dioxide 29 mmol/L (22-29); Chloride 106 mmol/L (96-108); Creatinine Clr Calc Pharmacy 70.8; Estimated Glomerular Filt Rate > 60; Glucose Random 80 mg/dL (60-115); Potassium 3.8 mmol/L (3.3-5.1); Sodium 144 mmol/L (135-145); Total Protein 7.3 g/dL (6.5-8.0)
[2024-06-12 19:40] LABS: Erythrocyte Sedimentation Rate 16 MM/HR (0-20)
[2024-06-12 19:49] LABS: Folate 8.3 ng/mL (> or = 4.0); Vitamin B12 462 pg/mL (200-900)
[2024-06-12 20:15] LABS: TSH reflex Free T4 1.71 uIU/mL (0.32-4.0)
[2024-06-12 21:30] VITALS: BP 130/71; PULSE 71; RESP 18; TEMP 36.6; O2SAT 97
[2024-06-12] MEDS: OLANZapine 10 MG TABLET PO (21:45)
--- NOTE | 2024-06-12 22:02 | PM.EVENT ---
Event Note Date of Service: 06/12/24 Event Note: As per psychiatrist, wants recommendation of abx for UTI. UA with 11-20 WBC. ?symptoms. Recommend macrobid 100mg x 5 days Time Spent With Patient Time: Total time managing care of this patient today ____ minutes.
[2024-06-13 04:45] LABS: Syphilis Screen Reactive (Nonreactive)
[2024-06-13 04:52] LABS: HIV AB/AG Nonreactive (Nonreactive); HIV Num 1 0.07 S/CO (0.00-0.99)
[2024-06-13 09:46] VITALS: BP 125/83; PULSE 66; RESP 18; TEMP 36.7; O2SAT 97
[2024-06-13 09:49] VITALS: BP 125/83; PULSE 66
[2024-06-13] MEDS: Divalproex Sodium ER 500 MG TAB.ER.24H PO ×2 (09:49→20:30)
[2024-06-13] MEDS: Benztropine Mesylate 1 MG TABLET PO ×2 (09:49→20:30)
[2024-06-13] MEDS: Gabapentin 300 MG CAPSULE PO ×3 (09:49→20:30)
[2024-06-13] MEDS: amLODIPine Besylate 5 MG TABLET PO (09:49)
[2024-06-13] MEDS: guanFACINE HCl ER 1 MG TAB.ER.24H PO (09:49)
[2024-06-13] MEDS: polyethylene glycoL 3350 17 GM POWD.PACK PO (09:49)
[2024-06-13] MEDS: Metoprolol Succinate ER 25 MG TAB.ER.24H PO (09:49)
[2024-06-13] MEDS: Venlafaxine HCL 25 MG TABLET 37.5 MG PO (09:49)
[2024-06-13] MEDS: fluPHENAZine HCl 5 MG TABLET 10 MG PO ×2 (09:49→20:30)
[2024-06-13] MEDS: Nitrofurantoin Monohyd/M-Cryst 100 MG CAPSULE PO ×2 (09:49→20:30)
[2024-06-13] MEDS: LORazepam 0.5 MG TABLET PO ×4 (09:49→20:30)
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
--- NOTE | 2024-06-13 16:21 | PM.EVENT ---
Event Note Date of Service: 06/13/24 Event Note: Treponemal antibody positive, RPR remains pending. Please notify hospitalist is reflex testing for syphilis is positive as patient will require further therapy but at this time does not require this. Discussed with psychiatrist. Time Spent With Patient Time: Total time managing care of this patient today ____ minutes.
[2024-06-13 19:57] VITALS: BP 132/72; PULSE 68; TEMP 36.4; O2SAT 99
[2024-06-13] MEDS: OLANZapine 10 MG TABLET PO (20:30)
[2024-06-13] MEDS: traZODone HCL 50 MG TABLET PO (20:30)
[2024-06-14 08:00] VITALS: BP 136/73; PULSE 71; RESP 16; TEMP 36.9; O2SAT 98
[2024-06-14] MEDS: fluPHENAZine HCl 5 MG TABLET 10 MG PO ×2 (08:38→20:08)
[2024-06-14] MEDS: Gabapentin 300 MG CAPSULE PO ×3 (08:39→20:08)
[2024-06-14] MEDS: guanFACINE HCl ER 1 MG TAB.ER.24H PO (08:39)
[2024-06-14] MEDS: Nitrofurantoin Monohyd/M-Cryst 100 MG CAPSULE PO ×2 (08:39→20:08)
[2024-06-14] MEDS: Benztropine Mesylate 1 MG TABLET PO ×2 (08:40→20:08)
[2024-06-14] MEDS: Divalproex Sodium ER 500 MG TAB.ER.24H PO ×2 (08:40→20:08)
[2024-06-14] MEDS: LORazepam 0.5 MG TABLET PO ×4 (08:40→20:08)
[2024-06-14] MEDS: Venlafaxine HCL 25 MG TABLET 37.5 MG PO (08:41)
[2024-06-14 08:43] VITALS: BP 136/73; PULSE 71
[2024-06-14] MEDS: Metoprolol Succinate ER 25 MG TAB.ER.24H PO (08:43)
[2024-06-14 08:44] VITALS: BP 136/73
[2024-06-14] MEDS: amLODIPine Besylate 5 MG TABLET PO (08:44)
[2024-06-14 20:00] VITALS: BP 126/75; PULSE 68; TEMP 36.4; O2SAT 98
[2024-06-14] MEDS: traZODone HCL 50 MG TABLET PO (20:08)
[2024-06-14] MEDS: OLANZapine 10 MG TABLET PO (20:08)
[2024-06-15 08:00] VITALS: BP 141/82; PULSE 71; RESP 14; TEMP 36.7; O2SAT 97
[2024-06-15] MEDS: Venlafaxine HCL 25 MG TABLET 37.5 MG PO (09:32)
[2024-06-15] MEDS: Nitrofurantoin Monohyd/M-Cryst 100 MG CAPSULE PO ×2 (09:32→21:59)
[2024-06-15] MEDS: Benztropine Mesylate 1 MG TABLET PO ×2 (09:32→21:59)
[2024-06-15] MEDS: amLODIPine Besylate 5 MG TABLET PO (09:32)
[2024-06-15] MEDS: Gabapentin 300 MG CAPSULE PO ×3 (09:33→21:59)
[2024-06-15] MEDS: guanFACINE HCl ER 1 MG TAB.ER.24H PO (09:33)
[2024-06-15] MEDS: Divalproex Sodium ER 500 MG TAB.ER.24H PO ×2 (09:33→21:59)
[2024-06-15] MEDS: fluPHENAZine HCl 5 MG TABLET 10 MG PO ×2 (09:33→21:59)
[2024-06-15] MEDS: LORazepam 0.5 MG TABLET PO ×4 (09:34→21:59)
[2024-06-15] MEDS: Metoprolol Succinate ER 25 MG TAB.ER.24H PO (09:34)
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
[2024-06-15 15:36] LABS: RPR Quantitative Non-Reactive (Nonreactive)
[2024-06-15 15:37] LABS: T.Pallidum Particle Agg Test Non-Reactive (Nonreactive)
[2024-06-15 20:00] VITALS: BP 128/60; PULSE 70; RESP 16; TEMP 36.4; O2SAT 97
[2024-06-15] MEDS: OLANZapine 10 MG TABLET PO (21:59)
[2024-06-15] MEDS: traZODone HCL 50 MG TABLET PO (21:59)
[2024-06-16 08:00] VITALS: BP 124/82; PULSE 75; RESP 16; TEMP 36.4; O2SAT 97
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
[2024-06-16] MEDS: fluPHENAZine HCl 5 MG TABLET 10 MG PO ×2 (09:21→20:58)
[2024-06-16 09:22] VITALS: BP 124/82; PULSE 75
[2024-06-16] MEDS: Metoprolol Succinate ER 25 MG TAB.ER.24H PO (09:22)
[2024-06-16 09:23] VITALS: BP 124/82
[2024-06-16] MEDS: Nitrofurantoin Monohyd/M-Cryst 100 MG CAPSULE PO ×2 (09:23→20:58)
[2024-06-16] MEDS: amLODIPine Besylate 5 MG TABLET PO (09:23)
[2024-06-16] MEDS: guanFACINE HCl ER 1 MG TAB.ER.24H PO (09:23)
[2024-06-16] MEDS: Gabapentin 300 MG CAPSULE PO ×3 (09:24→20:57)
[2024-06-16] MEDS: Divalproex Sodium ER 500 MG TAB.ER.24H PO ×2 (09:24→20:58)
[2024-06-16] MEDS: LORazepam 0.5 MG TABLET PO ×4 (09:24→20:58)
[2024-06-16] MEDS: Benztropine Mesylate 1 MG TABLET PO ×2 (09:24→20:58)
[2024-06-16] MEDS: polyethylene glycoL 3350 17 GM POWD.PACK PO (09:25)
[2024-06-16] MEDS: Venlafaxine HCL 25 MG TABLET 37.5 MG PO (09:34)
[2024-06-16 20:00] VITALS: BP 109/56; PULSE 78; RESP 16; TEMP 36.4; O2SAT 98
[2024-06-16] MEDS: OLANZapine 10 MG TABLET PO (20:57)
[2024-06-16] MEDS: traZODone HCL 50 MG TABLET PO (20:58)
[2024-06-17 08:00] VITALS: BP 138/84; PULSE 84; RESP 16; TEMP 36.6; O2SAT 97
[2024-06-17] MEDS: polyethylene glycoL 3350 17 GM POWD.PACK PO (09:35)
[2024-06-17 09:37] VITALS: BP 138/84; PULSE 84
[2024-06-17] MEDS: Metoprolol Succinate ER 25 MG TAB.ER.24H PO (09:37)
[2024-06-17] MEDS: Benztropine Mesylate 1 MG TABLET PO ×2 (09:37→20:24)
[2024-06-17 09:38] VITALS: BP 138/84
[2024-06-17] MEDS: Divalproex Sodium ER 500 MG TAB.ER.24H PO ×2 (09:38→20:24)
[2024-06-17] MEDS: Gabapentin 300 MG CAPSULE PO ×3 (09:38→20:24)
[2024-06-17] MEDS: amLODIPine Besylate 5 MG TABLET PO (09:38)
[2024-06-17] MEDS: guanFACINE HCl ER 1 MG TAB.ER.24H PO (09:38)
[2024-06-17] MEDS: Venlafaxine HCL 25 MG TABLET 37.5 MG PO (09:38)
[2024-06-17] MEDS: fluPHENAZine HCl 5 MG TABLET 10 MG PO ×2 (09:38→20:24)
[2024-06-17] MEDS: Nitrofurantoin Monohyd/M-Cryst 100 MG CAPSULE PO ×2 (09:39→20:24)
[2024-06-17] MEDS: LORazepam 0.5 MG TABLET PO ×4 (09:39→20:24)
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
[2024-06-17 20:00] VITALS: BP 150/70; PULSE 66; TEMP 36.4; O2SAT 99
[2024-06-17] MEDS: traZODone HCL 50 MG TABLET PO (20:24)
[2024-06-17] MEDS: OLANZapine 10 MG TABLET PO (20:24)
[2024-06-18 08:00] VITALS: BP 114/74; PULSE 52; RESP 16; TEMP 36.4; O2SAT 98
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
[2024-06-18] MEDS: Venlafaxine HCL 25 MG TABLET 37.5 MG PO (10:02)
[2024-06-18 10:03] VITALS: BP 132/80; PULSE 88
[2024-06-18] MEDS: Gabapentin 300 MG CAPSULE PO ×3 (10:03→20:19)
[2024-06-18] MEDS: Metoprolol Succinate ER 25 MG TAB.ER.24H PO (10:03)
[2024-06-18] MEDS: Divalproex Sodium ER 500 MG TAB.ER.24H PO ×2 (10:03→20:19)
[2024-06-18 10:04] VITALS: BP 132/80
[2024-06-18] MEDS: Benztropine Mesylate 1 MG TABLET PO ×2 (10:04→20:19)
[2024-06-18] MEDS: fluPHENAZine HCl 5 MG TABLET 10 MG PO ×2 (10:04→20:19)
[2024-06-18] MEDS: amLODIPine Besylate 5 MG TABLET PO (10:04)
[2024-06-18] MEDS: guanFACINE HCl ER 1 MG TAB.ER.24H PO (10:04)
[2024-06-18] MEDS: LORazepam 0.5 MG TABLET PO ×4 (10:04→20:19)
[2024-06-18] MEDS: polyethylene glycoL 3350 17 GM POWD.PACK PO (10:05)
[2024-06-18 11:18] LABS: Anti Nuclear Antibody Screen NEGATIVE (NEGATIVE)
[2024-06-18 16:53] LABS: Arsenic, Blood <3 mcg/L (<23); Lead, Blood <1.0 mcg/dL (<3.5); Mercury, Blood <4 mcg/L (<=10)
[2024-06-18 19:46] VITALS: BP 109/57; PULSE 64; RESP 18; TEMP 36.4; O2SAT 97
[2024-06-18] MEDS: OLANZapine 10 MG TABLET PO (20:19)
[2024-06-19 08:00] VITALS: BP 136/71; PULSE 66; RESP 20; TEMP 36.9; O2SAT 95
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
[2024-06-19] MEDS: Venlafaxine HCL 25 MG TABLET 37.5 MG PO (09:08)
[2024-06-19 09:09] VITALS: BP 136/71; PULSE 66
[2024-06-19] MEDS: Divalproex Sodium ER 500 MG TAB.ER.24H PO ×2 (09:09→20:20)
[2024-06-19] MEDS: guanFACINE HCl ER 1 MG TAB.ER.24H PO (09:09)
[2024-06-19] MEDS: amLODIPine Besylate 5 MG TABLET PO (09:09)
[2024-06-19] MEDS: Gabapentin 300 MG CAPSULE PO ×3 (09:09→20:20)
[2024-06-19] MEDS: LORazepam 0.5 MG TABLET PO ×4 (09:09→20:20)
[2024-06-19] MEDS: fluPHENAZine HCl 5 MG TABLET 10 MG PO ×2 (09:09→20:20)
[2024-06-19] MEDS: Metoprolol Succinate ER 25 MG TAB.ER.24H PO (09:09)
[2024-06-19] MEDS: polyethylene glycoL 3350 17 GM POWD.PACK PO (09:10)
[2024-06-19] MEDS: Benztropine Mesylate 1 MG TABLET PO ×2 (09:41→20:20)
[2024-06-19 15:00] VITALS: BP 116/56; PULSE 66; RESP 18; TEMP 36.7; O2SAT 99
--- NOTE | 2024-06-19 16:13 | PC.NURSE ---
Negar arrived to the unit before 15:00 in a w/c accompanied by her nurse from . Alert and oriented to self only. VS: 116/56, P 66, T 98.1, O2sat 99% on RA. Denies pain. Refused skin check on arrival, will try again later. Appears tearful, sad. Talking about her children and family she didn't see for a long time. Soft speech, at times mumbles. Pt ambulates with steady gait. On 5 min check. Pt visible in a milieu, adjusting to a new unit. Will continue to monitor.
[2024-06-19 20:00] VITALS: BP 118/56; PULSE 70; RESP 16; TEMP 36.7; O2SAT 97
[2024-06-19] MEDS: OLANZapine 10 MG TABLET PO (20:20)
[2024-06-20 08:15] VITALS: BP 119/61; PULSE 60; RESP 18; TEMP 35.7; O2SAT 95
--- NOTE | 2024-06-20 09:52 | PC.NURSE ---
Negar declined morning medications despite education and encouragement from this underwriter solicitation director. Dr. Blair notified.
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
--- NOTE | 2024-06-20 14:01 | HO.PSYCHPN ---
Subjective Subjective Date of Service: 06/20/24 Reason For Visit: schizoaffective disorder, bipolar type Subjective Notes: Section 7, Section 8 and Conditional Voluntary Interim History: The nursing staff reported the patient was transferred from in 5 he in the afternoon. She is alert and oriented only to self. She has been tearful and sad and she stated to the staff that she wants to go back to him 5. The patient has a history of schizophrenia, the initial team filed for Section 7 and 8. On interview, the patient reported that she wants to go back to him 5, she has refused her medications in the morning. She is scheduled to have fluphenazine twice a day. Mental Status Exam Mental Status Exam Patient Appearance: Appropriate Patient Orientation: Person and Situation Level of Consciousness: Awake Patient Behavior: Guarded and Passive Mood Description: Calm and Constricted Affect Description: Constricted Patient Cognition Impaired: Yes Ability to Follow Directions: Good Speech Pattern: Clear Hallucinations: Auditory Delusions: Paranoid Ideation and Ideas of Reference Thought Process: Distracted and Slowed Thinking Thought Content: positive for [place] and positive for Poverty of Content Judgement: Poor Diagnostics Vital Signs (24Hr): Vital Signs - 24 hr 06/19/24 15:00 06/19/24 20:00 06/20/24 08:15 Temperature 98.1 F 98.1 F 96.3 F L Pulse Rate 66 70 60 Respiratory Rate 18 16 18 Blood Pressure 116/56 L 118/56 L 119/61 Pulse Oximetry 99 97 95 Oxygen Delivery Method Room Air Room Air Room Air BMI result Body Mass Index 21.7 Labs 06/12/24 18:41 06/12/24 18:40 Labs: Laboratory Results - last 48 hr 06/12/24 18:41 Whole Blood Arsenic <3 Whole Blood Lead <1.0 Mercury <4 Medications Medications Current Medications Acetaminophen (Acetaminophen 325 Mg Tablet) 650 mg PO Q6H PRN PRN Reason: Headache/Pain Mild Scale (1-3) Last Admin: 06/12/24 09:32 Dose: 650 mg Al Hydroxide/Mg Hydroxide (Magnesium Hydrox/Alum Hydrox 30 Ml Oral.Susp) 30 ml PO Q6H PRN PRN Reason: Heartburn/Nausea Amlodipine Besylate (Amlodipine Besylate 5 Mg Tablet) 5 mg PO DAILY [facility]; Protocol Last Admin: 06/20/24 09:52 Dose: Not Given Benztropine Mesylate (Benztropine Mesylate 1 Mg Tablet) 1 mg PO BID [facility] Last Admin: 06/20/24 09:52 Dose: Not Given Divalproex Sodium (Divalproex Sodium Er 500 Mg Tab.Er.24h) 500 mg PO BID [facility] Last Admin: 06/20/24 09:52 Dose: Not Given Fluphenazine HCl (Fluphenazine Hcl 5 Mg Tablet) 10 mg PO BID [facility] Last Admin: 06/20/24 09:52 Dose: Not Given Gabapentin (Gabapentin 300 Mg Capsule) 300 mg PO TID [facility] Last Admin: 06/20/24 09:53 Dose: Not Given Guanfacine HCl (Guanfacine Hcl Er 1 Mg Tab.Er.24h) 1 mg PO DAILY [facility] Last Admin: 06/20/24 09:53 Dose: Not Given Lidocaine HCl (Lidocaine 4 % Cream Kit) 1 appl TOPICAL DAILY PRN; Protocol PRN Reason: numb area prior to blood draw Lorazepam (Lorazepam 0.5 Mg Tablet) 0.5 mg PO QID [facility] Last Admin: 06/20/24 11:58 Dose: Not Given Magnesium Hydroxide (Milk Of Magnesia 30 Ml Oral.Susp) 30 ml PO DAILY PRN PRN Reason: Constipation Metoprolol Succinate (Metoprolol Succinate Er 25 Mg Tab.Er.24h) 25 mg PO DAILY [facility]; Protocol Last Admin: 06/20/24 09:53 Dose: Not Given Nicotine (Nicotine 14 Mg Patch.Td24) 14 mg TRANSDERMA DAILY PRN PRN Reason: Nicotine Cravings Nicotine Polacrilex (Nicotine Polacrilex Lozenge 4 Mg Lozenge) 4 mg BUCCAL Q2H PRN PRN Reason: Nicotine Cravings Olanzapine (Olanzapine 10 Mg Tablet) 10 mg PO BEDTIME [facility] Last Admin: 06/19/24 20:20 Dose: 10 mg Polyethylene Glycol (Polyethylene Glycol 3350 17 Gm Powd.Pack) 17 gm PO DAILY [facility] Last Admin: 06/20/24 09:53 Dose: Not Given Sodium Biphosphate/Sodium Phosphate (Sodium Phosphate,[place]-Dibasic 133 Ml Enema) 133 ml PA ONCE PRN PRN Reason: Constipation Trazodone HCl (Trazodone Hcl 50 Mg Tablet) 50 mg PO BEDTIME MRX1 PRN PRN Reason: Insomnia Last Admin: 06/17/24 20:24 Dose: 50 mg Venlafaxine HCl (Venlafaxine Hcl 25 Mg Tablet) 37.5 mg PO DAILY [facility] Last Admin: 06/20/24 09:53 Dose: Not Given Allergies Allergies Allergy/AdvReac Type Severity Reaction Status Date / Time Sulfa (Sulfonamide AdvReac Mild Nausea and Verified 06/01/24 23:32 Antibiotics) Vomiting amoxicillin [From Augmentin] AdvReac Nausea and Verified 06/02/24 00:04 Vomiting clavulanic acid AdvReac Nausea and Verified 06/02/24 00:04 [From Augmentin] Vomiting Assessment & Plan Assessment & Plan (1) Schizoaffective disorder, bipolar type: Status: Acute Code(s): F25.0 - Schizoaffective disorder, bipolar type (2) HTN (hypertension): Status: Acute Code(s): I10 - Essential (primary) hypertension (3) HLD (hyperlipidemia): Status: Acute Code(s): E78.5 - Hyperlipidemia, unspecified Plan She has positive screening EIA ,treponemal test. She has negative treponemal TP-PA,direct for syphilis. Also screening RPR titer,nontreponemal or indirect measure of syphilis is negative. There is no recent exposures,no history or symptoms of it. HIV is negative. Best explanation is false positive screening test EIA which can appear if there are random antibodies in blood react. No treatment or further testing for syphilis at this time and symptoms arent explained by syphilis. The patient is a 64-year-old female with a past history of schizoaffective disorder who was initially admitted from the community since she was agitated. She was transferred to and later on transferred to geriatric psychiatrist since the patient is poorly functional with severe cognitive impairment. Plan 1. Continue with fluphenazine and Zyprexa as prescribed. 2. Filing for Section 7 and 8. 3. Reassessment with results. Reason for continued inpatient stay Substantial Risk for: inability to function, rapid decompensation and med/psych decompensation Time Spent With Patient Time: Total time managing care of this patient today __20__ minutes.
[2024-06-20 20:00] VITALS: BP 139/65; PULSE 67; RESP 16; TEMP 36.6; O2SAT 100
[2024-06-20] MEDS: Benztropine Mesylate 1 MG TABLET PO (21:03)
[2024-06-20] MEDS: fluPHENAZine HCl 5 MG TABLET 10 MG PO (21:03)
[2024-06-20] MEDS: Gabapentin 300 MG CAPSULE PO (21:03)
[2024-06-20] MEDS: OLANZapine 10 MG TABLET PO (21:04)
[2024-06-20] MEDS: LORazepam 0.5 MG TABLET PO (21:04)
[2024-06-21 00:39] VITALS: BP 146/72; PULSE 78; RESP 16; O2SAT 99
[2024-06-21 08:00] VITALS: BP 118/70; PULSE 78; RESP 18; O2SAT 98
[2024-06-21] MEDS: amLODIPine Besylate 5 MG TABLET PO (08:41)
[2024-06-21] MEDS: guanFACINE HCl ER 1 MG TAB.ER.24H PO (08:41)
[2024-06-21] MEDS: Venlafaxine HCL 25 MG TABLET 37.5 MG PO (08:41)
[2024-06-21] MEDS: fluPHENAZine HCl 5 MG TABLET 10 MG PO ×2 (08:41→20:15)
[2024-06-21] MEDS: Benztropine Mesylate 1 MG TABLET PO ×2 (08:42→20:16)
[2024-06-21] MEDS: Metoprolol Succinate ER 25 MG TAB.ER.24H PO (08:42)
[2024-06-21] MEDS: Divalproex Sodium ER 500 MG TAB.ER.24H PO ×2 (08:42→20:16)
[2024-06-21] MEDS: Gabapentin 300 MG CAPSULE PO ×3 (08:42→20:16)
[2024-06-21] MEDS: LORazepam 0.5 MG TABLET PO ×4 (08:42→20:15)
[2024-06-21 10:33] VITALS: BMI 22.7
--- NOTE | 2024-06-21 13:04 | HO.PSYCHPN ---
Subjective Subjective Date of Service: 06/21/24 Reason For Visit: schizoaffective disorder, bipolar type Subjective Notes: Section 7 and Section 8 Interim History: The nursing staff reported the patient had been tearful at times, incoherent rambling, she slept 5 hours. She had been partially compliant with medications I encouraged her to be fully compliant. We are waiting for Section 7 and 8. Still psychotic. Mental Status Exam Mental Status Exam Patient Appearance: Unkempt Patient Orientation: Person and Situation Level of Consciousness: Awake and Appropriate Patient Behavior: Guarded and Passive Mood Description: Calm Affect Description: Constricted Patient Cognition Impaired: Yes Ability to Follow Directions: Good Speech Pattern: Clear Hallucinations: Auditory Delusions: Paranoid Ideation and Ideas of Reference Thought Process: Illogical and Distracted Thought Content: positive for [place] and positive for Thought Blocking Judgement: Poor Diagnostics Vital Signs (24Hr): Vital Signs - 24 hr 06/20/24 20:00 06/21/24 00:39 06/21/24 08:00 Temperature 97.8 F Pulse Rate 67 78 78 Respiratory Rate 16 16 18 Blood Pressure 139/65 146/72 H 118/70 Pulse Oximetry 100 99 98 Oxygen Delivery Method Room Air Room Air Room Air BMI result Body Mass Index 22.7 Labs 06/12/24 18:41 06/12/24 18:40 Medications Medications Current Medications Acetaminophen (Acetaminophen 325 Mg Tablet) 650 mg PO Q6H PRN PRN Reason: Headache/Pain Mild Scale (1-3) Last Admin: 06/12/24 09:32 Dose: 650 mg Al Hydroxide/Mg Hydroxide (Magnesium Hydrox/Alum Hydrox 30 Ml Oral.Susp) 30 ml PO Q6H PRN PRN Reason: Heartburn/Nausea Amlodipine Besylate (Amlodipine Besylate 5 Mg Tablet) 5 mg PO DAILY [facility]; Protocol Last Admin: 06/21/24 08:41 Dose: 5 mg Benztropine Mesylate (Benztropine Mesylate 1 Mg Tablet) 1 mg PO BID [facility] Last Admin: 06/21/24 08:42 Dose: 1 mg Divalproex Sodium (Divalproex Sodium Er 500 Mg Tab.Er.24h) 500 mg PO BID [facility] Last Admin: 06/21/24 08:42 Dose: 500 mg Fluphenazine HCl (Fluphenazine Hcl 5 Mg Tablet) 10 mg PO BID [facility] Last Admin: 06/21/24 08:41 Dose: 10 mg Gabapentin (Gabapentin 300 Mg Capsule) 300 mg PO TID [facility] Last Admin: 06/21/24 08:42 Dose: 300 mg Guanfacine HCl (Guanfacine Hcl Er 1 Mg Tab.Er.24h) 1 mg PO DAILY [facility] Last Admin: 06/21/24 08:41 Dose: 1 mg Lidocaine HCl (Lidocaine 4 % Cream Kit) 1 appl TOPICAL DAILY PRN; Protocol PRN Reason: numb area prior to blood draw Lorazepam (Lorazepam 0.5 Mg Tablet) 0.5 mg PO QID [facility] Last Admin: 06/21/24 08:42 Dose: 0.5 mg Magnesium Hydroxide (Milk Of Magnesia 30 Ml Oral.Susp) 30 ml PO DAILY PRN PRN Reason: Constipation Metoprolol Succinate (Metoprolol Succinate Er 25 Mg Tab.Er.24h) 25 mg PO DAILY [facility]; Protocol Last Admin: 06/21/24 08:42 Dose: 25 mg Nicotine (Nicotine 14 Mg Patch.Td24) 14 mg TRANSDERMA DAILY PRN PRN Reason: Nicotine Cravings Nicotine Polacrilex (Nicotine Polacrilex Lozenge 4 Mg Lozenge) 4 mg BUCCAL Q2H PRN PRN Reason: Nicotine Cravings Olanzapine (Olanzapine 10 Mg Tablet) 10 mg PO BEDTIME [facility] Last Admin: 06/20/24 21:04 Dose: 10 mg Polyethylene Glycol (Polyethylene Glycol 3350 17 Gm Powd.Pack) 17 gm PO DAILY [facility] Last Admin: 06/21/24 08:44 Dose: Not Given Sodium Biphosphate/Sodium Phosphate (Sodium Phosphate,[place]-Dibasic 133 Ml Enema) 133 ml AL ONCE PRN PRN Reason: Constipation Trazodone HCl (Trazodone Hcl 50 Mg Tablet) 50 mg PO BEDTIME MRX1 PRN PRN Reason: Insomnia Last Admin: 06/17/24 20:24 Dose: 50 mg Venlafaxine HCl (Venlafaxine Hcl 25 Mg Tablet) 37.5 mg PO DAILY [facility] Last Admin: 06/21/24 08:41 Dose: 37.5 mg Allergies Allergies Allergy/AdvReac Type Severity Reaction Status Date / Time Sulfa (Sulfonamide AdvReac Mild Nausea and Verified 06/01/24 23:32 Antibiotics) Vomiting amoxicillin [From Augmentin] AdvReac Nausea and Verified 06/02/24 00:04 Vomiting clavulanic acid AdvReac Nausea and Verified 06/02/24 00:04 [From Augmentin] Vomiting Assessment & Plan Assessment & Plan (1) Schizoaffective disorder, bipolar type: Status: Acute Code(s): F25.0 - Schizoaffective disorder, bipolar type (2) HTN (hypertension): Status: Acute Code(s): I10 - Essential (primary) hypertension (3) HLD (hyperlipidemia): Status: Acute Code(s): E78.5 - Hyperlipidemia, unspecified Plan She has positive screening EIA ,treponemal test. She has negative treponemal TP-PA,direct for syphilis. Also screening RPR titer,nontreponemal or indirect measure of syphilis is negative. There is no recent exposures,no history or symptoms of it. HIV is negative. Best explanation is false positive screening test EIA which can appear if there are random antibodies in blood react. No treatment or further testing for syphilis at this time and symptoms arent explained by syphilis. The patient is a 64-year-old female with a past history of schizoaffective disorder who was initially admitted from the community since she was agitated. She was transferred to and later on transferred to geriatric psychiatrist since the patient is poorly functional with severe cognitive impairment. Plan 1. Continue with fluphenazine and Zyprexa as prescribed. 2. Filing for Section 7 and 8. 3. Reassessment with results. Reason for continued inpatient stay Substantial Risk for: inability to function, rapid decompensation and med/psych decompensation Time Spent With Patient Time: Total time managing care of this patient today __20__ minutes.
[2024-06-21 18:00] VITALS: TEMP 36.7
[2024-06-21 20:00] VITALS: BP 118/63; PULSE 62; RESP 16; TEMP 36.1; O2SAT 99
[2024-06-21] MEDS: OLANZapine 10 MG TABLET PO (20:15)
[2024-06-22 08:00] VITALS: BP 121/60; PULSE 67; RESP 17; TEMP 36.4; O2SAT 96
[2024-06-22] MEDS: Venlafaxine HCL 25 MG TABLET 37.5 MG PO (08:44)
[2024-06-22] MEDS: LORazepam 0.5 MG TABLET PO ×4 (08:44→19:48)
[2024-06-22] MEDS: fluPHENAZine HCl 5 MG TABLET 10 MG PO ×2 (08:45→19:48)
[2024-06-22] MEDS: Benztropine Mesylate 1 MG TABLET PO ×2 (08:45→19:48)
[2024-06-22] MEDS: Gabapentin 300 MG CAPSULE PO ×3 (08:46→19:48)
[2024-06-22] MEDS: guanFACINE HCl ER 1 MG TAB.ER.24H PO (08:46)
[2024-06-22] MEDS: amLODIPine Besylate 5 MG TABLET PO (08:46)
[2024-06-22] MEDS: Divalproex Sodium ER 500 MG TAB.ER.24H PO ×2 (08:46→19:48)
[2024-06-22] MEDS: Metoprolol Succinate ER 25 MG TAB.ER.24H PO (08:46)
--- NOTE | 2024-06-22 14:04 | P.PNPSI_ITS ---
Subjective Subjective Date of Service: 06/22/24 Reason For Visit: schizoaffective disorder, bipolar type Subjective Notes: Conditional Voluntary Interim History: The nursing staff reported the patient had been on better mood yesterday, she wants to go back home. She was seen self dialogue in [facility]. Slept 8 hours. She had been compliant with treatment. The social welfare clerk reported that she contacted her son who is the healthcare proxy. Also contacted the rest home who are not eager to take her back. On interview the patient remains disorganized but easily redirectable. Less agitated. Mental Status Exam Mental Status Exam Patient Appearance: Appropriate Patient Orientation: Person Level of Consciousness: Awake Patient Behavior: Guarded and Passive Mood Description: Calm Affect Description: Constricted Patient Cognition Impaired: Yes Ability to Follow Directions: Good Speech Pattern: Clear Hallucinations: None Delusions: Paranoid Ideation and Ideas of Reference Thought Process: Distracted and Slowed Thinking Thought Content: positive for [place] and positive for Poverty of Content Judgement: Fair Diagnostics Vital Signs (24Hr): Vital Signs - 24 hr 06/21/24 18:00 06/21/24 20:00 06/22/24 08:00 Temperature 98.0 F 97 F 97.6 F Pulse Rate 62 67 Respiratory Rate 16 17 Blood Pressure 118/63 121/60 Pulse Oximetry 99 96 Oxygen Delivery Method Room Air Room Air BMI result Body Mass Index 22.7 Labs 06/12/24 18:41 06/12/24 18:40 Medications Medications Current Medications Acetaminophen (Acetaminophen 325 Mg Tablet) 650 mg PO Q6H PRN PRN Reason: Headache/Pain Mild Scale (1-3) Last Admin: 06/12/24 09:32 Dose: 650 mg Al Hydroxide/Mg Hydroxide (Magnesium Hydrox/Alum Hydrox 30 Ml Oral.Susp) 30 ml PO Q6H PRN PRN Reason: Heartburn/Nausea Amlodipine Besylate (Amlodipine Besylate 5 Mg Tablet) 5 mg PO DAILY [facility]; Protocol Last Admin: 06/22/24 08:46 Dose: 5 mg Benztropine Mesylate (Benztropine Mesylate 1 Mg Tablet) 1 mg PO BID [facility] Last Admin: 06/22/24 08:45 Dose: 1 mg Divalproex Sodium (Divalproex Sodium Er 500 Mg Tab.Er.24h) 500 mg PO BID [facility] Last Admin: 06/22/24 08:46 Dose: 500 mg Fluphenazine HCl (Fluphenazine Hcl 5 Mg Tablet) 10 mg PO BID [facility] Last Admin: 06/22/24 08:45 Dose: 10 mg Gabapentin (Gabapentin 300 Mg Capsule) 300 mg PO TID [facility] Last Admin: 06/22/24 14:01 Dose: 300 mg Guanfacine HCl (Guanfacine Hcl Er 1 Mg Tab.Er.24h) 1 mg PO DAILY [facility] Last Admin: 06/22/24 08:46 Dose: 1 mg Lidocaine HCl (Lidocaine 4 % Cream Kit) 1 appl TOPICAL DAILY PRN; Protocol PRN Reason: numb area prior to blood draw Lorazepam (Lorazepam 0.5 Mg Tablet) 0.5 mg PO QID [facility] Last Admin: 06/22/24 14:01 Dose: 0.5 mg Magnesium Hydroxide (Milk Of Magnesia 30 Ml Oral.Susp) 30 ml PO DAILY PRN PRN Reason: Constipation Metoprolol Succinate (Metoprolol Succinate Er 25 Mg Tab.Er.24h) 25 mg PO DAILY [facility]; Protocol Last Admin: 06/22/24 08:46 Dose: 25 mg Nicotine (Nicotine 14 Mg Patch.Td24) 14 mg TRANSDERMA DAILY PRN PRN Reason: Nicotine Cravings Nicotine Polacrilex (Nicotine Polacrilex Lozenge 4 Mg Lozenge) 4 mg BUCCAL Q2H PRN PRN Reason: Nicotine Cravings Olanzapine (Olanzapine 10 Mg Tablet) 10 mg PO BEDTIME [facility] Last Admin: 06/21/24 20:15 Dose: 10 mg Polyethylene Glycol (Polyethylene Glycol 3350 17 Gm Powd.Pack) 17 gm PO DAILY [facility] Last Admin: 06/22/24 08:49 Dose: Not Given Sodium Biphosphate/Sodium Phosphate (Sodium Phosphate,[place]-Dibasic 133 Ml Enema) 133 ml [place] ONCE PRN PRN Reason: Constipation Trazodone HCl (Trazodone Hcl 50 Mg Tablet) 50 mg PO BEDTIME MRX1 PRN PRN Reason: Insomnia Last Admin: 06/17/24 20:24 Dose: 50 mg Venlafaxine HCl (Venlafaxine Hcl 25 Mg Tablet) 37.5 mg PO DAILY [facility] Last Admin: 06/22/24 08:44 Dose: 37.5 mg Allergies Allergies Allergy/AdvReac Type Severity Reaction Status Date / Time Sulfa (Sulfonamide AdvReac Mild Nausea and Verified 06/01/24 23:32 Antibiotics) Vomiting amoxicillin [From Augmentin] AdvReac Nausea and Verified 06/02/24 00:04 Vomiting clavulanic acid AdvReac Nausea and Verified 06/02/24 00:04 [From Augmentin] Vomiting Assessment & Plan Assessment & Plan (1) Schizoaffective disorder, bipolar type: Status: Acute Code(s): F25.0 - Schizoaffective disorder, bipolar type (2) HTN (hypertension): Status: Acute Code(s): I10 - Essential (primary) hypertension (3) HLD (hyperlipidemia): Status: Acute Code(s): E78.5 - Hyperlipidemia, unspecified Plan She has positive screening EIA ,treponemal test. She has negative treponemal TP-PA,direct for syphilis. Also screening RPR titer,nontreponemal or indirect measure of syphilis is negative. There is no recent exposures,no history or symptoms of it. HIV is negative. Best explanation is false positive screening test EIA which can appear if there are random antibodies in blood react. No treatment or further testing for syphilis at this time and symptoms arent explained by syphilis. The patient is a 64-year-old female with a past history of schizoaffective disorder who was initially admitted from the community since she was agitated. She was transferred to and later on transferred to geriatric psychiatrist since the patient is poorly functional with severe cognitive impairment. Plan 1. Continue with fluphenazine and Zyprexa as prescribed. 2. Filing for Section 7 and 8. 3. Reassessment with results. Reason for continued inpatient stay Substantial Risk for: inability to function, rapid decompensation and med/psych decompensation Time Spent With Patient Time: Total time managing care of this patient today __20__ minutes.
[2024-06-22] MEDS: OLANZapine 10 MG TABLET PO (19:48)
[2024-06-22 19:51] VITALS: BP 115/55; PULSE 59; RESP 16; TEMP 35.8; O2SAT 97
[2024-06-23 08:07] VITALS: BP 114/61; PULSE 61; RESP 18; TEMP 36.2; O2SAT 95
[2024-06-23] MEDS: Metoprolol Succinate ER 25 MG TAB.ER.24H PO (09:07)
[2024-06-23] MEDS: Divalproex Sodium ER 500 MG TAB.ER.24H PO ×2 (09:07→20:51)
[2024-06-23] MEDS: amLODIPine Besylate 5 MG TABLET PO (09:07)
[2024-06-23] MEDS: fluPHENAZine HCl 5 MG TABLET 10 MG PO ×2 (09:07→20:50)
[2024-06-23] MEDS: LORazepam 0.5 MG TABLET PO ×4 (09:07→20:50)
[2024-06-23] MEDS: Benztropine Mesylate 1 MG TABLET PO ×2 (09:07→20:51)
[2024-06-23] MEDS: Gabapentin 300 MG CAPSULE PO ×3 (09:07→20:51)
[2024-06-23] MEDS: guanFACINE HCl ER 1 MG TAB.ER.24H PO (09:07)
[2024-06-23] MEDS: Venlafaxine HCL 25 MG TABLET 37.5 MG PO (09:08)
--- NOTE | 2024-06-23 09:34 | HO.PSYCHPN ---
Subjective Subjective Date of Service: 06/23/24 Reason For Visit: schizoaffective disorder, bipolar type Subjective Notes: Section 7 and Section 8 Interim History: The nursing staff reported the patient slept well she had been less labile compliant with medications. On interview the patient remains internally preoccupied easily redirectable. Mental Status Exam Mental Status Exam Patient Appearance: Appropriate Patient Orientation: Person and Situation Level of Consciousness: Awake and Appropriate Patient Behavior: Guarded and Passive Mood Description: Withdrawn Affect Description: Constricted Patient Cognition Impaired: Yes Ability to Follow Directions: Good Speech Pattern: Clear Hallucinations: None Delusions: Not Present Thought Process: Distracted and Slowed Thinking Thought Content: positive for [place] and positive for Poverty of Content Judgement: Fair Diagnostics Vital Signs (24Hr): Vital Signs - 24 hr 06/22/24 19:51 06/23/24 08:07 Temperature 96.5 F L 97.1 F Pulse Rate 59 61 Respiratory Rate 16 18 Blood Pressure 115/55 L 114/61 Pulse Oximetry 97 95 Oxygen Delivery Method Room Air Room Air BMI result Body Mass Index 22.7 Labs 06/12/24 18:41 06/12/24 18:40 Medications Medications Current Medications Acetaminophen (Acetaminophen 325 Mg Tablet) 650 mg PO Q6H PRN PRN Reason: Headache/Pain Mild Scale (1-3) Last Admin: 06/12/24 09:32 Dose: 650 mg Al Hydroxide/Mg Hydroxide (Magnesium Hydrox/Alum Hydrox 30 Ml Oral.Susp) 30 ml PO Q6H PRN PRN Reason: Heartburn/Nausea Amlodipine Besylate (Amlodipine Besylate 5 Mg Tablet) 5 mg PO DAILY [facility]; Protocol Last Admin: 06/23/24 09:07 Dose: 5 mg Benztropine Mesylate (Benztropine Mesylate 1 Mg Tablet) 1 mg PO BID [facility] Last Admin: 06/23/24 09:07 Dose: 1 mg Divalproex Sodium (Divalproex Sodium Er 500 Mg Tab.Er.24h) 500 mg PO BID [facility] Last Admin: 06/23/24 09:07 Dose: 500 mg Fluphenazine HCl (Fluphenazine Hcl 5 Mg Tablet) 10 mg PO BID [facility] Last Admin: 06/23/24 09:07 Dose: 10 mg Gabapentin (Gabapentin 300 Mg Capsule) 300 mg PO TID [facility] Last Admin: 06/23/24 09:07 Dose: 300 mg Guanfacine HCl (Guanfacine Hcl Er 1 Mg Tab.Er.24h) 1 mg PO DAILY [facility] Last Admin: 06/23/24 09:07 Dose: 1 mg Lidocaine HCl (Lidocaine 4 % Cream Kit) 1 appl TOPICAL DAILY PRN; Protocol PRN Reason: numb area prior to blood draw Lorazepam (Lorazepam 0.5 Mg Tablet) 0.5 mg PO QID [facility] Last Admin: 06/23/24 09:07 Dose: 0.5 mg Magnesium Hydroxide (Milk Of Magnesia 30 Ml Oral.Susp) 30 ml PO DAILY PRN PRN Reason: Constipation Metoprolol Succinate (Metoprolol Succinate Er 25 Mg Tab.Er.24h) 25 mg PO DAILY [facility]; Protocol Last Admin: 06/23/24 09:07 Dose: 25 mg Nicotine (Nicotine 14 Mg Patch.Td24) 14 mg TRANSDERMA DAILY PRN PRN Reason: Nicotine Cravings Nicotine Polacrilex (Nicotine Polacrilex Lozenge 4 Mg Lozenge) 4 mg BUCCAL Q2H PRN PRN Reason: Nicotine Cravings Olanzapine (Olanzapine 10 Mg Tablet) 10 mg PO BEDTIME [facility] Last Admin: 06/22/24 19:48 Dose: 10 mg Polyethylene Glycol (Polyethylene Glycol 3350 17 Gm Powd.Pack) 17 gm PO DAILY [facility] Last Admin: 06/23/24 09:11 Dose: Not Given Sodium Biphosphate/Sodium Phosphate (Sodium Phosphate,[place]-Dibasic 133 Ml Enema) 133 ml [place] ONCE PRN PRN Reason: Constipation Trazodone HCl (Trazodone Hcl 50 Mg Tablet) 50 mg PO BEDTIME MRX1 PRN PRN Reason: Insomnia Last Admin: 06/17/24 20:24 Dose: 50 mg Venlafaxine HCl (Venlafaxine Hcl 25 Mg Tablet) 37.5 mg PO DAILY [facility] Last Admin: 06/23/24 09:08 Dose: 37.5 mg Allergies Allergies Allergy/AdvReac Type Severity Reaction Status Date / Time Sulfa (Sulfonamide AdvReac Mild Nausea and Verified 06/01/24 23:32 Antibiotics) Vomiting amoxicillin [From Augmentin] AdvReac Nausea and Verified 06/02/24 00:04 Vomiting clavulanic acid AdvReac Nausea and Verified 06/02/24 00:04 [From Augmentin] Vomiting Assessment & Plan Assessment & Plan (1) Schizoaffective disorder, bipolar type: Status: Acute Code(s): F25.0 - Schizoaffective disorder, bipolar type (2) HTN (hypertension): Status: Acute Code(s): I10 - Essential (primary) hypertension (3) HLD (hyperlipidemia): Status: Acute Code(s): E78.5 - Hyperlipidemia, unspecified Plan She has positive screening EIA ,treponemal test. She has negative treponemal TP-PA,direct for syphilis. Also screening RPR titer,nontreponemal or indirect measure of syphilis is negative. There is no recent exposures,no history or symptoms of it. HIV is negative. Best explanation is false positive screening test EIA which can appear if there are random antibodies in blood react. No treatment or further testing for syphilis at this time and symptoms arent explained by syphilis. The patient is a 64-year-old female with a past history of schizoaffective disorder who was initially admitted from the community since she was agitated. She was transferred to and later on transferred to geriatric psychiatrist since the patient is poorly functional with severe cognitive impairment. Plan 1. Continue with fluphenazine and Zyprexa as prescribed. 2. Filing for Section 7 and 8. 3. Reassessment with results. Reason for continued inpatient stay Substantial Risk for: inability to function, rapid decompensation and med/psych decompensation Time Spent With Patient Time: Total time managing care of this patient today _20___ minutes.
[2024-06-23 19:50] VITALS: BP 107/58; PULSE 64; RESP 16; TEMP 36.4; O2SAT 97
[2024-06-23] MEDS: OLANZapine 10 MG TABLET PO (20:51)
[2024-06-24 07:56] VITALS: BP 118/61; PULSE 63; RESP 16; TEMP 36.1; O2SAT 96
[2024-06-24] MEDS: Benztropine Mesylate 1 MG TABLET PO ×2 (08:26→19:58)
[2024-06-24] MEDS: guanFACINE HCl ER 1 MG TAB.ER.24H PO (08:26)
[2024-06-24 08:27] VITALS: BP 118/61; PULSE 63
[2024-06-24] MEDS: LORazepam 0.5 MG TABLET PO ×4 (08:27→19:59)
[2024-06-24] MEDS: Divalproex Sodium ER 500 MG TAB.ER.24H PO ×2 (08:27→19:58)
[2024-06-24] MEDS: Venlafaxine HCL 25 MG TABLET 37.5 MG PO (08:27)
[2024-06-24] MEDS: Metoprolol Succinate ER 25 MG TAB.ER.24H PO (08:27)
[2024-06-24] MEDS: amLODIPine Besylate 5 MG TABLET PO (08:27)
[2024-06-24] MEDS: fluPHENAZine HCl 5 MG TABLET 10 MG PO ×2 (08:27→19:58)
[2024-06-24] MEDS: Gabapentin 300 MG CAPSULE PO ×3 (08:27→19:58)
--- NOTE | 2024-06-24 10:41 | HO.PSYCHPN ---
Subjective Subjective Date of Service: 06/24/24 Reason For Visit: schizoaffective disorder, bipolar type Subjective Notes: Section 7 and Section 8 Interim History: The nursing staff reported the patient took all her medications but she was seen self dialogue in at times. She had been crying at times with some mood lability but pleasant. Slept 8 hours. On interview the patient denies new symptoms she wants to go back to her home. Mental Status Exam Mental Status Exam Patient Appearance: Appropriate Patient Orientation: Person and Situation Level of Consciousness: Awake and Appropriate Patient Behavior: Guarded and Passive Mood Description: Withdrawn Affect Description: Constricted Patient Cognition Impaired: Yes Ability to Follow Directions: Good Speech Pattern: Clear Hallucinations: Auditory Delusions: Paranoid Ideation and Ideas of Reference Thought Process: Distracted and Slowed Thinking Thought Content: positive for [place] and positive for Poverty of Content Judgement: Fair Diagnostics Vital Signs (24Hr): Vital Signs - 24 hr 06/23/24 19:50 06/24/24 07:56 06/24/24 08:27 Temperature 97.6 F 96.9 F Pulse Rate 64 63 63 Respiratory Rate 16 16 Blood Pressure 107/58 L 118/61 118/61 Pulse Oximetry 97 96 Oxygen Delivery Method Room Air Room Air 06/24/24 08:27 Temperature Pulse Rate Respiratory Rate Blood Pressure 118/61 Pulse Oximetry Oxygen Delivery Method BMI result Body Mass Index 22.7 Labs 06/12/24 18:41 06/12/24 18:40 Medications Medications Current Medications Acetaminophen (Acetaminophen 325 Mg Tablet) 650 mg PO Q6H PRN PRN Reason: Headache/Pain Mild Scale (1-3) Last Admin: 06/12/24 09:32 Dose: 650 mg Al Hydroxide/Mg Hydroxide (Magnesium Hydrox/Alum Hydrox 30 Ml Oral.Susp) 30 ml PO Q6H PRN PRN Reason: Heartburn/Nausea Amlodipine Besylate (Amlodipine Besylate 5 Mg Tablet) 5 mg PO DAILY [facility]; Protocol Last Admin: 06/24/24 08:27 Dose: 5 mg Benztropine Mesylate (Benztropine Mesylate 1 Mg Tablet) 1 mg PO BID [facility] Last Admin: 06/24/24 08:26 Dose: 1 mg Divalproex Sodium (Divalproex Sodium Er 500 Mg Tab.Er.24h) 500 mg PO BID [facility] Last Admin: 06/24/24 08:27 Dose: 500 mg Fluphenazine HCl (Fluphenazine Hcl 5 Mg Tablet) 10 mg PO BID [facility] Last Admin: 06/24/24 08:27 Dose: 10 mg Gabapentin (Gabapentin 300 Mg Capsule) 300 mg PO TID [facility] Last Admin: 06/24/24 08:27 Dose: 300 mg Guanfacine HCl (Guanfacine Hcl Er 1 Mg Tab.Er.24h) 1 mg PO DAILY [facility] Last Admin: 06/24/24 08:26 Dose: 1 mg Lidocaine HCl (Lidocaine 4 % Cream Kit) 1 appl TOPICAL DAILY PRN; Protocol PRN Reason: numb area prior to blood draw Lorazepam (Lorazepam 0.5 Mg Tablet) 0.5 mg PO QID [facility] Last Admin: 06/24/24 08:27 Dose: 0.5 mg Magnesium Hydroxide (Milk Of Magnesia 30 Ml Oral.Susp) 30 ml PO DAILY PRN PRN Reason: Constipation Metoprolol Succinate (Metoprolol Succinate Er 25 Mg Tab.Er.24h) 25 mg PO DAILY [facility]; Protocol Last Admin: 06/24/24 08:27 Dose: 25 mg Nicotine (Nicotine 14 Mg Patch.Td24) 14 mg TRANSDERMA DAILY PRN PRN Reason: Nicotine Cravings Nicotine Polacrilex (Nicotine Polacrilex Lozenge 4 Mg Lozenge) 4 mg BUCCAL Q2H PRN PRN Reason: Nicotine Cravings Olanzapine (Olanzapine 10 Mg Tablet) 10 mg PO BEDTIME [facility] Last Admin: 06/23/24 20:51 Dose: 10 mg Polyethylene Glycol (Polyethylene Glycol 3350 17 Gm Powd.Pack) 17 gm PO DAILY [facility] Last Admin: 06/24/24 08:29 Dose: Not Given Sodium Biphosphate/Sodium Phosphate (Sodium Phosphate,[place]-Dibasic 133 Ml Enema) 133 ml [place] ONCE PRN PRN Reason: Constipation Trazodone HCl (Trazodone Hcl 50 Mg Tablet) 50 mg PO BEDTIME MRX1 PRN PRN Reason: Insomnia Last Admin: 06/17/24 20:24 Dose: 50 mg Venlafaxine HCl (Venlafaxine Hcl 25 Mg Tablet) 37.5 mg PO DAILY [facility] Last Admin: 06/24/24 08:27 Dose: 37.5 mg Allergies Allergies Allergy/AdvReac Type Severity Reaction Status Date / Time Sulfa (Sulfonamide AdvReac Mild Nausea and Verified 06/01/24 23:32 Antibiotics) Vomiting amoxicillin [From Augmentin] AdvReac Nausea and Verified 06/02/24 00:04 Vomiting clavulanic acid AdvReac Nausea and Verified 06/02/24 00:04 [From Augmentin] Vomiting Assessment & Plan Assessment & Plan (1) Schizoaffective disorder, bipolar type: Status: Acute Code(s): F25.0 - Schizoaffective disorder, bipolar type (2) HTN (hypertension): Status: Acute Code(s): I10 - Essential (primary) hypertension (3) HLD (hyperlipidemia): Status: Acute Code(s): E78.5 - Hyperlipidemia, unspecified Plan She has positive screening EIA ,treponemal test. She has negative treponemal TP-PA,direct for syphilis. Also screening RPR titer,nontreponemal or indirect measure of syphilis is negative. There is no recent exposures,no history or symptoms of it. HIV is negative. Best explanation is false positive screening test EIA which can appear if there are random antibodies in blood react. No treatment or further testing for syphilis at this time and symptoms arent explained by syphilis. The patient is a 64-year-old female with a past history of schizoaffective disorder who was initially admitted from the community since she was agitated. She was transferred to and later on transferred to geriatric psychiatrist since the patient is poorly functional with severe cognitive impairment. Plan 1. Continue with fluphenazine and Zyprexa as prescribed. 2. Filing for Section 7 and 8. 3. Reassessment with results. 4. Blood work for tomorrow morning Reason for continued inpatient stay Substantial Risk for: inability to function, rapid decompensation and med/psych decompensation Time Spent With Patient Time: Total time managing care of this patient today __20__ minutes.
[2024-06-24] MEDS: OLANZapine 10 MG TABLET PO (19:58)
[2024-06-24 20:00] VITALS: BP 134/65; PULSE 63; RESP 16; TEMP 36.1; O2SAT 98
[2024-06-25 08:09] LABS: MANUAL DIFF FLAG NO
[2024-06-25 08:12] LABS: Basophils Absolute Auto 0.1 X10*3/uL (0.0-0.2); Basophils Percent Auto 0.8 % (0-2); Eosinophils Absolute Auto 0.2 X10*3/uL (0.0-0.4); Eosinophils Percent Auto 1.7 % (0-4); Hematocrit 40.7 % (37.0-47.0); Hemoglobin 13.6 g/dl (12.0-16.0); Imm Gran Abs Auto 0.07 X10*3/uL (0.00-0.03); Imm Gran Pct Auto 0.8 % (0.0-0.4); Lymphocytes Absolute Auto 3.8 X10*3/uL (1.2-4.9); Lymphocytes Percent Auto 42.2 % (20-40); Mean Corpuscular HGB Conc 33.4 g/dl (31.0-35.0); Mean Corpuscular Volume 89.8 fL (80.0-98.0); Mean Platelet Volume 8.7 fL (9.4-12.3); Monocytes Absolute Auto 0.6 X10*3/uL (0.1-1.2); Monocytes Percent Auto 6.4 % (2-11); Neutrophils Absolute Auto 4.3 x10*3/uL (2.0-8.3); Neutrophils Percent Auto 48.1 % (45-73); Platelet Count 275 X10*3/uL (160-400); Red Blood Count 4.53 X10*6/uL (4.20-5.50); Red Cell Distribution Width 13.7 % (11.0-16.0); White Blood Count 8.9 X10*3/uL (4.8-10.8)
[2024-06-25 08:15] VITALS: BP 152/63; PULSE 60; RESP 18; TEMP 35.9; O2SAT 99
[2024-06-25 08:22] LABS: Anion Gap 13 (12-20); Blood Urea Nitrogen 18 mg/dL (9-16); Calcium 9.2 mg/dL (8.4-10.2); Carbon Dioxide 29 mmol/L (22-29); Chloride 107 mmol/L (96-108); Creatinine Clr Calc Pharmacy 64.3; Estimated Glomerular Filt Rate > 60; Glucose Random 117 mg/dL (60-115); Sodium 145 mmol/L (135-145)
[2024-06-25 08:30] LABS: Valproate 76.5 mcg/mL (50.0-100.0)
[2024-06-25] MEDS: Venlafaxine HCL 25 MG TABLET 37.5 MG PO (08:37)
[2024-06-25] MEDS: Gabapentin 300 MG CAPSULE PO ×3 (08:41→20:08)
[2024-06-25] MEDS: Divalproex Sodium ER 500 MG TAB.ER.24H PO ×2 (08:41→20:09)
[2024-06-25] MEDS: fluPHENAZine HCl 5 MG TABLET 10 MG PO ×2 (08:41→20:08)
[2024-06-25] MEDS: Benztropine Mesylate 1 MG TABLET PO ×2 (08:41→20:09)
[2024-06-25 08:42] VITALS: BP 152/63; PULSE 60
[2024-06-25] MEDS: Metoprolol Succinate ER 25 MG TAB.ER.24H PO (08:42)
[2024-06-25] MEDS: guanFACINE HCl ER 1 MG TAB.ER.24H PO (08:42)
[2024-06-25 08:43] VITALS: BP 152/63
[2024-06-25] MEDS: LORazepam 0.5 MG TABLET PO ×4 (08:43→20:08)
[2024-06-25] MEDS: amLODIPine Besylate 5 MG TABLET PO (08:43)
--- NOTE | 2024-06-25 15:08 | HO.PSYCHPN ---
Subjective Subjective Date of Service: 06/25/24 Reason For Visit: schizoaffective disorder, bipolar type Subjective Notes: Section 7, Section 8 and Conditional Voluntary Interim History: The nursing staff reported the patient had been fully compliant with treatment, no changes in her mental status. On interview the patient denies new symptoms her Depakote level, CBC and basic metabolic panel with thin normal limits. The occupational therapist reported that her Sean test history 0.6 and [place] 17/30. The social media job titles reported that her facility has denied her and we are planning for different places. On interview the patient denies new symptoms Mental Status Exam Mental Status Exam Patient Appearance: Appropriate Patient Orientation: Person and Situation Level of Consciousness: Awake and Appropriate Patient Behavior: Guarded and Passive Mood Description: Withdrawn Affect Description: Constricted Patient Cognition Impaired: Yes Ability to Follow Directions: Good Speech Pattern: Clear Hallucinations: None Delusions: Paranoid Ideation Thought Process: Distracted and Slowed Thinking Thought Content: positive for [place] and positive for Poverty of Content Judgement: Fair Diagnostics Vital Signs (24Hr): Vital Signs - 24 hr 06/24/24 20:00 06/25/24 08:15 06/25/24 08:42 Temperature 96.9 F 96.6 F L Pulse Rate 63 60 60 Respiratory Rate 16 18 Blood Pressure 134/65 152/63 H 152/63 H Pulse Oximetry 98 99 Oxygen Delivery Method Room Air Room Air 06/25/24 08:43 Temperature Pulse Rate Respiratory Rate Blood Pressure 152/63 H Pulse Oximetry Oxygen Delivery Method BMI result Body Mass Index 22.7 Labs 06/25/24 08:04 06/25/24 08:04 Labs: Laboratory Results - last 48 hr 06/25/24 08:04 WBC 8.9 RBC 4.53 Hgb 13.6 Hct 40.7 MCV 89.8 MCH 30.0 MCHC 33.4 RDW 13.7 Plt Count 275 MPV 8.7 L Immature Gran % (Auto) 0.8 H Neut % (Auto) 48.1 Lymph % (Auto) 42.2 H Stanton % (Auto) 6.4 Eos % (Auto) 1.7 Baso % (Auto) 0.8 Lymph # (Auto) 3.8 Stanton # (Auto) 0.6 Eos # (Auto) 0.2 Baso # (Auto) 0.1 Abs Immat Gran (auto) 0.07 H Absolute Neuts (auto) 4.3 Absolute Nucleated RBC 0.000 Nucleated RBC % (auto) 0.0 Sodium 145 Potassium 4.0 Chloride 107 Carbon Dioxide 29 Anion Gap 13 BUN 18 H Creatinine 0.86 Estim Creat Clear Calc 64.3 Estimated GFR > 60 Random Glucose 117 H Calcium 9.2 D Valproic Acid 76.5 Medications Medications Current Medications Acetaminophen (Acetaminophen 325 Mg Tablet) 650 mg PO Q6H PRN PRN Reason: Headache/Pain Mild Scale (1-3) Last Admin: 06/12/24 09:32 Dose: 650 mg Al Hydroxide/Mg Hydroxide (Magnesium Hydrox/Alum Hydrox 30 Ml Oral.Susp) 30 ml PO Q6H PRN PRN Reason: Heartburn/Nausea Amlodipine Besylate (Amlodipine Besylate 5 Mg Tablet) 5 mg PO DAILY [facility]; Protocol Last Admin: 06/25/24 08:43 Dose: 5 mg Benztropine Mesylate (Benztropine Mesylate 1 Mg Tablet) 1 mg PO BID [facility] Last Admin: 06/25/24 08:41 Dose: 1 mg Divalproex Sodium (Divalproex Sodium Er 500 Mg Tab.Er.24h) 500 mg PO BID [facility] Last Admin: 06/25/24 08:41 Dose: 500 mg Fluphenazine HCl (Fluphenazine Hcl 5 Mg Tablet) 10 mg PO BID [facility] Last Admin: 06/25/24 08:41 Dose: 10 mg Gabapentin (Gabapentin 300 Mg Capsule) 300 mg PO TID [facility] Last Admin: 06/25/24 14:22 Dose: 300 mg Guanfacine HCl (Guanfacine Hcl Er 1 Mg Tab.Er.24h) 1 mg PO DAILY [facility] Last Admin: 06/25/24 08:42 Dose: 1 mg Lidocaine HCl (Lidocaine 4 % Cream Kit) 1 appl TOPICAL DAILY PRN; Protocol PRN Reason: numb area prior to blood draw Lorazepam (Lorazepam 0.5 Mg Tablet) 0.5 mg PO QID [facility] Last Admin: 06/25/24 13:35 Dose: 0.5 mg Magnesium Hydroxide (Milk Of Magnesia 30 Ml Oral.Susp) 30 ml PO DAILY PRN PRN Reason: Constipation Metoprolol Succinate (Metoprolol Succinate Er 25 Mg Tab.Er.24h) 25 mg PO DAILY [facility]; Protocol Last Admin: 06/25/24 08:42 Dose: 25 mg Nicotine (Nicotine 14 Mg Patch.Td24) 14 mg TRANSDERMA DAILY PRN PRN Reason: Nicotine Cravings Nicotine Polacrilex (Nicotine Polacrilex Lozenge 4 Mg Lozenge) 4 mg BUCCAL Q2H PRN PRN Reason: Nicotine Cravings Olanzapine (Olanzapine 10 Mg Tablet) 10 mg PO BEDTIME [facility] Last Admin: 06/24/24 19:58 Dose: 10 mg Polyethylene Glycol (Polyethylene Glycol 3350 17 Gm Powd.Pack) 17 gm PO DAILY [facility] Last Admin: 06/25/24 08:44 Dose: Not Given Sodium Biphosphate/Sodium Phosphate (Sodium Phosphate,[place]-Dibasic 133 Ml Enema) 133 ml [place] ONCE PRN PRN Reason: Constipation Trazodone HCl (Trazodone Hcl 50 Mg Tablet) 50 mg PO BEDTIME MRX1 PRN PRN Reason: Insomnia Last Admin: 06/17/24 20:24 Dose: 50 mg Venlafaxine HCl (Venlafaxine Hcl 25 Mg Tablet) 37.5 mg PO DAILY [facility] Last Admin: 06/25/24 08:37 Dose: 37.5 mg Allergies Allergies Allergy/AdvReac Type Severity Reaction Status Date / Time Sulfa (Sulfonamide AdvReac Mild Nausea and Verified 06/01/24 23:32 Antibiotics) Vomiting amoxicillin [From Augmentin] AdvReac Nausea and Verified 06/02/24 00:04 Vomiting clavulanic acid AdvReac Nausea and Verified 06/02/24 00:04 [From Augmentin] Vomiting Assessment & Plan Assessment & Plan (1) Schizoaffective disorder, bipolar type: Status: Acute Code(s): F25.0 - Schizoaffective disorder, bipolar type (2) HTN (hypertension): Status: Acute Code(s): I10 - Essential (primary) hypertension (3) HLD (hyperlipidemia): Status: Acute Code(s): E78.5 - Hyperlipidemia, unspecified Plan She has positive screening EIA ,treponemal test. She has negative treponemal TP-PA,direct for syphilis. Also screening RPR titer,nontreponemal or indirect measure of syphilis is negative. There is no recent exposures,no history or symptoms of it. HIV is negative. Best explanation is false positive screening test EIA which can appear if there are random antibodies in blood react. No treatment or further testing for syphilis at this time and symptoms arent explained by syphilis. The patient is a 64-year-old female with a past history of schizoaffective disorder who was initially admitted from the community since she was agitated. She was transferred to and later on transferred to geriatric psychiatrist since the patient is poorly functional with severe cognitive impairment. Plan 1. Continue with fluphenazine and Zyprexa as prescribed. 2. Filing for Section 7 and 8. 3. Reassessment with results. 4. Blood work for tomorrow morning Reason for continued inpatient stay Substantial Risk for: inability to function, rapid decompensation and med/psych decompensation Time Spent With Patient Time: Total time managing care of this patient today __20__ minutes.
[2024-06-25 20:00] VITALS: BP 131/61; PULSE 66; RESP 16; TEMP 35.7; O2SAT 95
[2024-06-25] MEDS: OLANZapine 10 MG TABLET PO (20:10)
[2024-06-26 08:10] VITALS: BP 123/67; PULSE 64; RESP 18; TEMP 36.6; O2SAT 96
[2024-06-26] MEDS: fluPHENAZine HCl 5 MG TABLET 10 MG PO ×2 (09:00→21:14)
[2024-06-26] MEDS: Benztropine Mesylate 1 MG TABLET PO ×2 (09:00→21:13)
[2024-06-26] MEDS: Divalproex Sodium ER 500 MG TAB.ER.24H PO ×2 (09:00→21:13)
[2024-06-26] MEDS: guanFACINE HCl ER 1 MG TAB.ER.24H PO (09:00)
[2024-06-26] MEDS: amLODIPine Besylate 5 MG TABLET PO (09:00)
[2024-06-26] MEDS: Gabapentin 300 MG CAPSULE PO ×3 (09:00→21:14)
[2024-06-26] MEDS: Venlafaxine HCL 25 MG TABLET 37.5 MG PO (09:00)
[2024-06-26] MEDS: Metoprolol Succinate ER 25 MG TAB.ER.24H PO (09:03)
[2024-06-26] MEDS: LORazepam 0.5 MG TABLET PO ×4 (09:03→21:14)
[2024-06-26] MEDS: polyethylene glycoL 3350 17 GM POWD.PACK PO (09:06)
--- NOTE | 2024-06-26 12:31 | HO.PSYCHPN ---
Subjective Subjective Date of Service: 06/26/24 Reason For Visit: schizoaffective disorder, bipolar type Subjective Notes: Section 7 and Section 8 Interim History: The nursing staff reported that she has been fully compliant with medications, her behavior has been more stable, still confused at times and easily redirected. On interview, she reported feeling ok and she wants to go back to [facility] but she was already been d.c and she is technically homeless. SW is working on placement. Mental Status Exam Mental Status Exam Patient Appearance: Appropriate Patient Orientation: Person and Situation Level of Consciousness: Awake and Appropriate Patient Behavior: Passive Mood Description: Calm Affect Description: Constricted Patient Cognition Impaired: Yes Ability to Follow Directions: Good Speech Pattern: Clear Hallucinations: Auditory Delusions: Ideas of Reference Thought Process: Illogical and Slowed Thinking Thought Content: positive for [place] and positive for Thought Blocking Judgement: Poor Diagnostics Vital Signs (24Hr): Vital Signs - 24 hr 06/25/24 20:00 06/26/24 08:10 Temperature 96.3 F L 97.8 F Pulse Rate 66 64 Respiratory Rate 16 18 Blood Pressure 131/61 123/67 Pulse Oximetry 95 96 Oxygen Delivery Method Room Air Room Air BMI result Body Mass Index 22.7 Labs 06/25/24 08:04 06/25/24 08:04 Labs: Laboratory Results - last 48 hr 06/25/24 08:04 WBC 8.9 RBC 4.53 Hgb 13.6 Hct 40.7 MCV 89.8 MCH 30.0 MCHC 33.4 RDW 13.7 Plt Count 275 MPV 8.7 L Immature Gran % (Auto) 0.8 H Neut % (Auto) 48.1 Lymph % (Auto) 42.2 H [place] % (Auto) 6.4 Eos % (Auto) 1.7 Baso % (Auto) 0.8 Lymph # (Auto) 3.8 [place] # (Auto) 0.6 Eos # (Auto) 0.2 Baso # (Auto) 0.1 Abs Immat Gran (auto) 0.07 H Absolute Neuts (auto) 4.3 Absolute Nucleated RBC 0.000 Nucleated RBC % (auto) 0.0 Sodium 145 Potassium 4.0 Chloride 107 Carbon Dioxide 29 Anion Gap 13 BUN 18 H Creatinine 0.86 Estim Creat Clear Calc 64.3 Estimated GFR > 60 Random Glucose 117 H Calcium 9.2 D Valproic Acid 76.5 Medications Medications Current Medications Acetaminophen (Acetaminophen 325 Mg Tablet) 650 mg PO Q6H PRN PRN Reason: Headache/Pain Mild Scale (1-3) Last Admin: 06/12/24 09:32 Dose: 650 mg Al Hydroxide/Mg Hydroxide (Magnesium Hydrox/Alum Hydrox 30 Ml Oral.Susp) 30 ml PO Q6H PRN PRN Reason: Heartburn/Nausea Amlodipine Besylate (Amlodipine Besylate 5 Mg Tablet) 5 mg PO DAILY [facility]; Protocol Last Admin: 06/26/24 09:00 Dose: 5 mg Benztropine Mesylate (Benztropine Mesylate 1 Mg Tablet) 1 mg PO BID [facility] Last Admin: 06/26/24 09:00 Dose: 1 mg Divalproex Sodium (Divalproex Sodium Er 500 Mg Tab.Er.24h) 500 mg PO BID [facility] Last Admin: 06/26/24 09:00 Dose: 500 mg Fluphenazine HCl (Fluphenazine Hcl 5 Mg Tablet) 10 mg PO BID [facility] Last Admin: 06/26/24 09:00 Dose: 10 mg Gabapentin (Gabapentin 300 Mg Capsule) 300 mg PO TID [facility] Last Admin: 06/26/24 09:00 Dose: 300 mg Guanfacine HCl (Guanfacine Hcl Er 1 Mg Tab.Er.24h) 1 mg PO DAILY [facility] Last Admin: 06/26/24 09:00 Dose: 1 mg Lidocaine HCl (Lidocaine 4 % Cream Kit) 1 appl TOPICAL DAILY PRN; Protocol PRN Reason: numb area prior to blood draw Lorazepam (Lorazepam 0.5 Mg Tablet) 0.5 mg PO QID [facility] Last Admin: 06/26/24 09:03 Dose: 0.5 mg Magnesium Hydroxide (Milk Of Magnesia 30 Ml Oral.Susp) 30 ml PO DAILY PRN PRN Reason: Constipation Metoprolol Succinate (Metoprolol Succinate Er 25 Mg Tab.Er.24h) 25 mg PO DAILY [facility]; Protocol Last Admin: 06/26/24 09:03 Dose: 25 mg Nicotine (Nicotine 14 Mg Patch.Td24) 14 mg TRANSDERMA DAILY PRN PRN Reason: Nicotine Cravings Nicotine Polacrilex (Nicotine Polacrilex Lozenge 4 Mg Lozenge) 4 mg BUCCAL Q2H PRN PRN Reason: Nicotine Cravings Olanzapine (Olanzapine 10 Mg Tablet) 10 mg PO BEDTIME [facility] Last Admin: 06/25/24 20:10 Dose: 10 mg Polyethylene Glycol (Polyethylene Glycol 3350 17 Gm Powd.Pack) 17 gm PO DAILY [facility] Last Admin: 06/26/24 09:06 Dose: 17 gm Sodium Biphosphate/Sodium Phosphate (Sodium Phosphate,[place]-Dibasic 133 Ml Enema) 133 ml [place] ONCE PRN PRN Reason: Constipation Trazodone HCl (Trazodone Hcl 50 Mg Tablet) 50 mg PO BEDTIME MRX1 PRN PRN Reason: Insomnia Last Admin: 06/17/24 20:24 Dose: 50 mg Venlafaxine HCl (Venlafaxine Hcl 25 Mg Tablet) 37.5 mg PO DAILY [facility] Last Admin: 06/26/24 09:00 Dose: 37.5 mg Allergies Allergies Allergy/AdvReac Type Severity Reaction Status Date / Time Sulfa (Sulfonamide AdvReac Mild Nausea and Verified 06/01/24 23:32 Antibiotics) Vomiting amoxicillin [From Augmentin] AdvReac Nausea and Verified 06/02/24 00:04 Vomiting clavulanic acid AdvReac Nausea and Verified 06/02/24 00:04 [From Augmentin] Vomiting Assessment & Plan Assessment & Plan (1) Schizoaffective disorder, bipolar type: Status: Acute Code(s): F25.0 - Schizoaffective disorder, bipolar type (2) HTN (hypertension): Status: Acute Code(s): I10 - Essential (primary) hypertension (3) HLD (hyperlipidemia): Status: Acute Code(s): E78.5 - Hyperlipidemia, unspecified Plan She has positive screening EIA ,treponemal test. She has negative treponemal TP-PA,direct for syphilis. Also screening RPR titer,nontreponemal or indirect measure of syphilis is negative. There is no recent exposures,no history or symptoms of it. HIV is negative. Best explanation is false positive screening test EIA which can appear if there are random antibodies in blood react. No treatment or further testing for syphilis at this time and symptoms arent explained by syphilis. The patient is a 64-year-old female with a past history of schizoaffective disorder who was initially admitted from the community since she was agitated. She was transferred to and later on transferred to geriatric psychiatrist since the patient is poorly functional with severe cognitive impairment. Plan 1. Continue with fluphenazine and Zyprexa as prescribed. 2. Filing for Section 7 and 8. 3. Reassessment with results. 4. Blood work 0n 06/24 came back stable. 5. Working on placement. Reason for continued inpatient stay Substantial Risk for: inability to function, rapid decompensation and med/psych decompensation Time Spent With Patient Time: Total time managing care of this patient today ___20_ minutes.
[2024-06-26 20:00] VITALS: BP 129/58; PULSE 62; RESP 18; TEMP 36.3; O2SAT 97
[2024-06-26] MEDS: OLANZapine 10 MG TABLET PO (21:14)
[2024-06-26] MEDS: Acetaminophen 325 MG TABLET 650 MG PO (21:28)
[2024-06-27 08:05] VITALS: BP 120/60; PULSE 61; RESP 18; TEMP 36.6; O2SAT 96
[2024-06-27] MEDS: Divalproex Sodium ER 500 MG TAB.ER.24H PO ×2 (08:30→20:35)
[2024-06-27] MEDS: Venlafaxine HCL 25 MG TABLET 37.5 MG PO (08:36)
[2024-06-27] MEDS: Benztropine Mesylate 1 MG TABLET PO ×2 (08:36→20:35)
[2024-06-27] MEDS: Metoprolol Succinate ER 25 MG TAB.ER.24H PO (08:36)
[2024-06-27] MEDS: Gabapentin 300 MG CAPSULE PO ×3 (08:36→20:35)
[2024-06-27] MEDS: guanFACINE HCl ER 1 MG TAB.ER.24H PO (08:36)
[2024-06-27] MEDS: amLODIPine Besylate 5 MG TABLET PO (08:37)
[2024-06-27] MEDS: fluPHENAZine HCl 5 MG TABLET 10 MG PO ×2 (08:37→20:35)
[2024-06-27] MEDS: LORazepam 0.5 MG TABLET PO ×4 (08:37→20:36)
[2024-06-27] MEDS: polyethylene glycoL 3350 17 GM POWD.PACK PO (08:37)
--- NOTE | 2024-06-27 12:29 | HO.PSYCHPN ---
Subjective Subjective Date of Service: 06/27/24 Reason For Visit: schizoaffective disorder, bipolar type Subjective Notes: Conditional Voluntary Interim History: The nursing staff reported the patient had been flat, cooperative and pleasant slept 8 hours. The executive secretary social welfare reported that her son does not want to get involved in her care. The occupational therapist reported that she scored 17/30 on the [place] and 3.6 in the Sean test. On interview the patient denies new symptoms she is unable to process that she does not have a place but she is waiting for placement. Mental Status Exam Mental Status Exam Patient Appearance: Appropriate Patient Orientation: Person and Situation Level of Consciousness: Awake and Appropriate Patient Behavior: Guarded and Passive Mood Description: Withdrawn Affect Description: Constricted Patient Cognition Impaired: Yes Ability to Follow Directions: Good Speech Pattern: Clear Hallucinations: None Delusions: Not Present Thought Process: Distracted and Slowed Thinking Thought Content: positive for [place] and positive for Poverty of Content Judgement: Fair Diagnostics Vital Signs (24Hr): Vital Signs - 24 hr 06/26/24 20:00 06/27/24 08:05 Temperature 97.4 F 97.8 F Pulse Rate 62 61 Respiratory Rate 18 18 Blood Pressure 129/58 L 120/60 Pulse Oximetry 97 96 Oxygen Delivery Method Room Air Room Air BMI result Body Mass Index 22.7 Labs 06/25/24 08:04 06/25/24 08:04 Medications Medications Current Medications Acetaminophen (Acetaminophen 325 Mg Tablet) 650 mg PO Q6H PRN PRN Reason: Headache/Pain Mild Scale (1-3) Last Admin: 06/26/24 21:28 Dose: 650 mg Al Hydroxide/Mg Hydroxide (Magnesium Hydrox/Alum Hydrox 30 Ml Oral.Susp) 30 ml PO Q6H PRN PRN Reason: Heartburn/Nausea Amlodipine Besylate (Amlodipine Besylate 5 Mg Tablet) 5 mg PO DAILY [facility]; Protocol Last Admin: 06/27/24 08:37 Dose: 5 mg Benztropine Mesylate (Benztropine Mesylate 1 Mg Tablet) 1 mg PO BID [facility] Last Admin: 06/27/24 08:36 Dose: 1 mg Divalproex Sodium (Divalproex Sodium Er 500 Mg Tab.Er.24h) 500 mg PO BID [facility] Last Admin: 06/27/24 08:30 Dose: 500 mg Fluphenazine HCl (Fluphenazine Hcl 5 Mg Tablet) 10 mg PO BID [facility] Last Admin: 06/27/24 08:37 Dose: 10 mg Gabapentin (Gabapentin 300 Mg Capsule) 300 mg PO TID [facility] Last Admin: 06/27/24 08:36 Dose: 300 mg Guanfacine HCl (Guanfacine Hcl Er 1 Mg Tab.Er.24h) 1 mg PO DAILY [facility] Last Admin: 06/27/24 08:36 Dose: 1 mg Lidocaine HCl (Lidocaine 4 % Cream Kit) 1 appl TOPICAL DAILY PRN; Protocol PRN Reason: numb area prior to blood draw Lorazepam (Lorazepam 0.5 Mg Tablet) 0.5 mg PO QID [facility] Last Admin: 06/27/24 12:05 Dose: 0.5 mg Magnesium Hydroxide (Milk Of Magnesia 30 Ml Oral.Susp) 30 ml PO DAILY PRN PRN Reason: Constipation Metoprolol Succinate (Metoprolol Succinate Er 25 Mg Tab.Er.24h) 25 mg PO DAILY [facility]; Protocol Last Admin: 06/27/24 08:36 Dose: 25 mg Nicotine (Nicotine 14 Mg Patch.Td24) 14 mg TRANSDERMA DAILY PRN PRN Reason: Nicotine Cravings Nicotine Polacrilex (Nicotine Polacrilex Lozenge 4 Mg Lozenge) 4 mg BUCCAL Q2H PRN PRN Reason: Nicotine Cravings Olanzapine (Olanzapine 10 Mg Tablet) 10 mg PO BEDTIME [facility] Last Admin: 06/26/24 21:14 Dose: 10 mg Polyethylene Glycol (Polyethylene Glycol 3350 17 Gm Powd.Pack) 17 gm PO DAILY [facility] Last Admin: 06/27/24 08:37 Dose: 17 gm Sodium Biphosphate/Sodium Phosphate (Sodium Phosphate,[place]-Dibasic 133 Ml Enema) 133 ml [place] ONCE PRN PRN Reason: Constipation Trazodone HCl (Trazodone Hcl 50 Mg Tablet) 50 mg PO BEDTIME MRX1 PRN PRN Reason: Insomnia Last Admin: 06/17/24 20:24 Dose: 50 mg Venlafaxine HCl (Venlafaxine Hcl 25 Mg Tablet) 37.5 mg PO DAILY [facility] Last Admin: 06/27/24 08:36 Dose: 37.5 mg Allergies Allergies Allergy/AdvReac Type Severity Reaction Status Date / Time Sulfa (Sulfonamide AdvReac Mild Nausea and Verified 06/01/24 23:32 Antibiotics) Vomiting amoxicillin [From Augmentin] AdvReac Nausea and Verified 06/02/24 00:04 Vomiting clavulanic acid AdvReac Nausea and Verified 06/02/24 00:04 [From Augmentin] Vomiting Assessment & Plan Assessment & Plan (1) Schizoaffective disorder, bipolar type: Status: Acute Code(s): F25.0 - Schizoaffective disorder, bipolar type (2) HTN (hypertension): Status: Acute Code(s): I10 - Essential (primary) hypertension (3) HLD (hyperlipidemia): Status: Acute Code(s): E78.5 - Hyperlipidemia, unspecified Plan She has positive screening EIA ,treponemal test. She has negative treponemal TP-PA,direct for syphilis. Also screening RPR titer,nontreponemal or indirect measure of syphilis is negative. There is no recent exposures,no history or symptoms of it. HIV is negative. Best explanation is false positive screening test EIA which can appear if there are random antibodies in blood react. No treatment or further testing for syphilis at this time and symptoms arent explained by syphilis. The patient is a 64-year-old female with a past history of schizoaffective disorder who was initially admitted from the community since she was agitated. She was transferred to and later on transferred to geriatric psychiatrist since the patient is poorly functional with severe cognitive impairment. Plan 1. Continue with fluphenazine and Zyprexa as prescribed. 2. Filing for Section 7 and 8. 3. Reassessment with results. 4. Blood work 0n 06/24 came back stable. 5. Working on placement. Reason for continued inpatient stay Substantial Risk for: inability to function, rapid decompensation and med/psych decompensation Time Spent With Patient Time: Total time managing care of this patient today _20___ minutes.
[2024-06-27 20:00] VITALS: BP 113/72; PULSE 58; RESP 18; TEMP 36; O2SAT 98
[2024-06-27] MEDS: OLANZapine 10 MG TABLET PO (20:35)
[2024-06-28 08:00] VITALS: BP 100/60; PULSE 57; RESP 18; TEMP 36.9; O2SAT 97
[2024-06-28] MEDS: Metoprolol Succinate ER 25 MG TAB.ER.24H PO (08:00)
[2024-06-28] MEDS: LORazepam 0.5 MG TABLET PO ×4 (08:01→20:41)
[2024-06-28] MEDS: amLODIPine Besylate 5 MG TABLET PO (08:01)
[2024-06-28] MEDS: guanFACINE HCl ER 1 MG TAB.ER.24H PO (08:01)
[2024-06-28] MEDS: fluPHENAZine HCl 5 MG TABLET 10 MG PO ×2 (08:02→20:41)
[2024-06-28] MEDS: Venlafaxine HCL 25 MG TABLET 37.5 MG PO (08:02)
[2024-06-28] MEDS: Benztropine Mesylate 1 MG TABLET PO ×2 (08:02→20:41)
[2024-06-28] MEDS: Gabapentin 300 MG CAPSULE PO ×3 (08:02→20:41)
[2024-06-28 09:16] VITALS: BMI 23.7
--- NOTE | 2024-06-28 11:13 | P.PNPSI_ITS ---
Subjective Subjective Date of Service: 06/28/24 Reason For Visit: schizoaffective disorder, bipolar type Subjective Notes: Conditional Voluntary Interim History: The nursing staff reported no changes in her mental status, fully compliant with medications. The patient has attended to a few groups but most of the time she stays in the common areas. The social service coordinator reported that the patient wants to go back but they are trying to get to long-term facility. Her hearing for 0 7 and 80s on July 02. On interview the patient denies new symptoms. Mental Status Exam Mental Status Exam Patient Appearance: Well Grooomed and Appropriate Patient Orientation: Person and Situation Level of Consciousness: Awake and Appropriate Patient Behavior: Guarded and Passive Mood Description: Withdrawn Affect Description: Constricted Patient Cognition Impaired: Yes Ability to Follow Directions: Good Speech Pattern: Clear Hallucinations: None Delusions: Not Present Thought Process: Distracted and Slowed Thinking Thought Content: positive for [place] and positive for Poverty of Content Judgement: Fair Diagnostics Vital Signs (24Hr): Vital Signs - 24 hr 06/27/24 20:00 Temperature 96.8 F Pulse Rate 58 Respiratory Rate 18 Blood Pressure 113/72 Pulse Oximetry 98 Oxygen Delivery Method Room Air BMI result Body Mass Index 23.7 Labs 06/25/24 08:04 06/25/24 08:04 Medications Medications Current Medications Acetaminophen (Acetaminophen 325 Mg Tablet) 650 mg PO Q6H PRN PRN Reason: Headache/Pain Mild Scale (1-3) Last Admin: 06/26/24 21:28 Dose: 650 mg Al Hydroxide/Mg Hydroxide (Magnesium Hydrox/Alum Hydrox 30 Ml Oral.Susp) 30 ml PO Q6H PRN PRN Reason: Heartburn/Nausea Amlodipine Besylate (Amlodipine Besylate 5 Mg Tablet) 5 mg PO DAILY COUNTS INCLUDE 234 BEDS AT THE [facility]; Protocol Last Admin: 06/28/24 08:01 Dose: 5 mg Benztropine Mesylate (Benztropine Mesylate 1 Mg Tablet) 1 mg PO BID COUNTS INCLUDE 234 BEDS AT THE [facility] Last Admin: 06/28/24 08:02 Dose: 1 mg Divalproex Sodium (Divalproex Sodium Er 500 Mg Tab.Er.24h) 500 mg PO BID COUNTS INCLUDE 234 BEDS AT THE [facility] Last Admin: 06/28/24 08:09 Dose: Not Given Fluphenazine HCl (Fluphenazine Hcl 5 Mg Tablet) 10 mg PO BID COUNTS INCLUDE 234 BEDS AT THE [facility] Last Admin: 06/28/24 08:02 Dose: 10 mg Gabapentin (Gabapentin 300 Mg Capsule) 300 mg PO TID COUNTS INCLUDE 234 BEDS AT THE [facility] Last Admin: 06/28/24 08:02 Dose: 300 mg Guanfacine HCl (Guanfacine Hcl Er 1 Mg Tab.Er.24h) 1 mg PO DAILY COUNTS INCLUDE 234 BEDS AT THE [facility] Last Admin: 06/28/24 08:01 Dose: 1 mg Lidocaine HCl (Lidocaine 4 % Cream Kit) 1 appl TOPICAL DAILY PRN; Protocol PRN Reason: numb area prior to blood draw Lorazepam (Lorazepam 0.5 Mg Tablet) 0.5 mg PO QID COUNTS INCLUDE 234 BEDS AT THE [facility] Last Admin: 06/28/24 08:01 Dose: 0.5 mg Magnesium Hydroxide (Milk Of Magnesia 30 Ml Oral.Susp) 30 ml PO DAILY PRN PRN Reason: Constipation Metoprolol Succinate (Metoprolol Succinate Er 25 Mg Tab.Er.24h) 25 mg PO DAILY COUNTS INCLUDE 234 BEDS AT THE [facility]; Protocol Last Admin: 06/28/24 08:00 Dose: 25 mg Nicotine (Nicotine 14 Mg Patch.Td24) 14 mg TRANSDERMA DAILY PRN PRN Reason: Nicotine Cravings Nicotine Polacrilex (Nicotine Polacrilex Lozenge 4 Mg Lozenge) 4 mg BUCCAL Q2H PRN PRN Reason: Nicotine Cravings Olanzapine (Olanzapine 10 Mg Tablet) 10 mg PO BEDTIME COUNTS INCLUDE 234 BEDS AT THE [facility] Last Admin: 06/27/24 20:35 Dose: 10 mg Polyethylene Glycol (Polyethylene Glycol 3350 17 Gm Powd.Pack) 17 gm PO DAILY COUNTS INCLUDE 234 BEDS AT THE [facility] Last Admin: 06/28/24 08:11 Dose: Not Given Sodium Biphosphate/Sodium Phosphate (Sodium Phosphate,[place]-Dibasic 133 Ml Enema) 133 ml [place] ONCE PRN PRN Reason: Constipation Trazodone HCl (Trazodone Hcl 50 Mg Tablet) 50 mg PO BEDTIME MRX1 PRN PRN Reason: Insomnia Last Admin: 06/17/24 20:24 Dose: 50 mg Venlafaxine HCl (Venlafaxine Hcl 25 Mg Tablet) 37.5 mg PO DAILY COUNTS INCLUDE 234 BEDS AT THE [facility] Last Admin: 06/28/24 08:02 Dose: 37.5 mg Allergies Allergies Allergy/AdvReac Type Severity Reaction Status Date / Time Sulfa (Sulfonamide AdvReac Mild Nausea and Verified 06/01/24 23:32 Antibiotics) Vomiting amoxicillin [From Augmentin] AdvReac Nausea and Verified 06/02/24 00:04 Vomiting clavulanic acid AdvReac Nausea and Verified 06/02/24 00:04 [From Augmentin] Vomiting Assessment & Plan Assessment & Plan (1) Schizoaffective disorder, bipolar type: Status: Acute Code(s): F25.0 - Schizoaffective disorder, bipolar type (2) HTN (hypertension): Status: Acute Code(s): I10 - Essential (primary) hypertension (3) HLD (hyperlipidemia): Status: Acute Code(s): E78.5 - Hyperlipidemia, unspecified Plan She has positive screening EIA ,treponemal test. She has negative treponemal TP-PA,direct for syphilis. Also screening RPR titer,nontreponemal or indirect measure of syphilis is negative. There is no recent exposures,no history or symptoms of it. HIV is negative. Best explanation is false positive screening test EIA which can appear if there are random antibodies in blood react. No treatment or further testing for syphilis at this time and symptoms arent explained by syphilis. The patient is a 64-year-old female with a past history of schizoaffective disorder who was initially admitted from the community since she was agitated. She was transferred to and later on transferred to geriatric psychiatrist since the patient is poorly functional with severe cognitive impairment. Plan 1. Continue with fluphenazine and Zyprexa as prescribed. 2. Filing for Section 7 and 8. 3. Reassessment with results. 4. Blood work 0n 98 came back stable. 5. Working on placement. Reason for continued inpatient stay Substantial Risk for: inability to function, rapid decompensation and med/psych decompensation Time Spent With Patient Time: Total time managing care of this patient today __20__ minutes.
[2024-06-28 20:00] VITALS: BP 137/65; PULSE 76; RESP 16; TEMP 36; O2SAT 98
[2024-06-28] MEDS: OLANZapine 10 MG TABLET PO (20:41)
[2024-06-28] MEDS: Acetaminophen 325 MG TABLET 650 MG PO (20:42)
[2024-06-29 08:15] VITALS: BP 119/63; PULSE 55; RESP 18; TEMP 36.8; O2SAT 95
[2024-06-29] MEDS: amLODIPine Besylate 5 MG TABLET PO (08:36)
[2024-06-29] MEDS: fluPHENAZine HCl 5 MG TABLET 10 MG PO ×2 (08:36→21:06)
[2024-06-29] MEDS: Gabapentin 300 MG CAPSULE PO ×3 (08:36→21:05)
[2024-06-29] MEDS: Benztropine Mesylate 1 MG TABLET PO ×2 (08:36→21:05)
[2024-06-29] MEDS: guanFACINE HCl ER 1 MG TAB.ER.24H PO (08:36)
[2024-06-29] MEDS: LORazepam 0.5 MG TABLET PO ×4 (08:36→21:05)
[2024-06-29] MEDS: Metoprolol Succinate ER 25 MG TAB.ER.24H PO (08:37)
[2024-06-29] MEDS: Venlafaxine HCL 25 MG TABLET 37.5 MG PO (08:37)
--- NOTE | 2024-06-29 09:52 | HO.PSYCHPN ---
Subjective Subjective Date of Service: 06/29/24 Reason For Visit: schizoaffective disorder, bipolar type Subjective Notes: Section 7 (07/02/24) Interim History: Negar reports she is well. She has been refusing Valproate, states, It really makes me feel terrible. Tells team it promotes sadness. Section 7/8 hearing 07/02 per team. Today she spoke of concerns about an eval for cancer- I think I have breast and uterine. States she has started an eval with Carlos Eduardo Scott of [facility]. Call to the office-pt is an active patient with this practice.. She did sign PIO for sharing of information which team will send. Active in the milieu, social while having lunch with a peer. Recalls time on another unit which is where she met with tw. I think I am doing better, don't you agree? Team reports she is difficult to understand at times and has some times with difficulty verbalizing. Also, team requests metoprolol parameters be identified- she is taking dosage for HR 55 and above. Continue to monitor. Medication Compliance: Intermittent (not taking Depakote currently) Side effects from medications: Yes ( sadness ) Attending Groups: Intermittent Review of Systems Discussed beginning an eval [facility] with PCP. PIO sent Medical Review of Systems: unchanged Review of Systems Review of Systems Yes all other systems are reviewed and are negative (denies today) Mental Status Exam Mental Status Exam Patient Appearance: Fatigued and Appropriate Patient Orientation: Person and Situation Level of Consciousness: Awake and Appropriate Patient Behavior: Guarded and Passive Mood Description: Withdrawn Affect Description: Constricted Patient Cognition Impaired: Yes Ability to Follow Directions: Good Speech Pattern: Clear Hallucinations: None Delusions: Not Present Thought Process: Distracted and Slowed Thinking Thought Content: positive for [place] and positive for Poverty of Content Judgement: Fair Diagnostics Vital Signs (24Hr): Vital Signs - 24 hr 06/28/24 20:00 06/29/24 08:15 Temperature 96.8 F 98.2 F Pulse Rate 76 55 Respiratory Rate 16 18 Blood Pressure 137/65 119/63 Pulse Oximetry 98 95 Oxygen Delivery Method Room Air Room Air BMI result Body Mass Index 23.7 Labs 06/25/24 08:04 06/25/24 08:04 Medications Medications Current Medications Acetaminophen (Acetaminophen 325 Mg Tablet) 650 mg PO Q6H PRN PRN Reason: Headache/Pain Mild Scale (1-3) Last Admin: 06/28/24 20:42 Dose: 650 mg Al Hydroxide/Mg Hydroxide (Magnesium Hydrox/Alum Hydrox 30 Ml Oral.Susp) 30 ml PO Q6H PRN PRN Reason: Heartburn/Nausea Amlodipine Besylate (Amlodipine Besylate 5 Mg Tablet) 5 mg PO DAILY COUNT INCLUDES THE [facility]; Protocol Last Admin: 06/29/24 08:36 Dose: 5 mg Benztropine Mesylate (Benztropine Mesylate 1 Mg Tablet) 1 mg PO BID COUNT INCLUDES THE [facility] Last Admin: 06/29/24 08:36 Dose: 1 mg Divalproex Sodium (Divalproex Sodium Er 500 Mg Tab.Er.24h) 500 mg PO BID COUNT INCLUDES THE [facility] Last Admin: 06/29/24 08:40 Dose: Not Given Fluphenazine HCl (Fluphenazine Hcl 5 Mg Tablet) 10 mg PO BID COUNT INCLUDES THE [facility] Last Admin: 06/29/24 08:36 Dose: 10 mg Gabapentin (Gabapentin 300 Mg Capsule) 300 mg PO TID COUNT INCLUDES THE [facility] Last Admin: 06/29/24 08:36 Dose: 300 mg Guanfacine HCl (Guanfacine Hcl Er 1 Mg Tab.Er.24h) 1 mg PO DAILY COUNT INCLUDES THE [facility] Last Admin: 06/29/24 08:36 Dose: 1 mg Lidocaine HCl (Lidocaine 4 % Cream Kit) 1 appl TOPICAL DAILY PRN; Protocol PRN Reason: numb area prior to blood draw Lorazepam (Lorazepam 0.5 Mg Tablet) 0.5 mg PO QID COUNT INCLUDES THE [facility] Last Admin: 06/29/24 08:36 Dose: 0.5 mg Magnesium Hydroxide (Milk Of Magnesia 30 Ml Oral.Susp) 30 ml PO DAILY PRN PRN Reason: Constipation Metoprolol Succinate (Metoprolol Succinate Er 25 Mg Tab.Er.24h) 25 mg PO DAILY COUNT INCLUDES THE [facility]; Protocol Last Admin: 06/29/24 08:37 Dose: 25 mg Nicotine (Nicotine 14 Mg Patch.Td24) 14 mg TRANSDERMA DAILY PRN PRN Reason: Nicotine Cravings Nicotine Polacrilex (Nicotine Polacrilex Lozenge 4 Mg Lozenge) 4 mg BUCCAL Q2H PRN PRN Reason: Nicotine Cravings Olanzapine (Olanzapine 10 Mg Tablet) 10 mg PO BEDTIME COUNT INCLUDES THE [facility] Last Admin: 06/28/24 20:41 Dose: 10 mg Polyethylene Glycol (Polyethylene Glycol 3350 17 Gm Powd.Pack) 17 gm PO DAILY COUNT INCLUDES THE [facility] Last Admin: 06/29/24 08:43 Dose: Not Given Sodium Biphosphate/Sodium Phosphate (Sodium Phosphate,[place]-Dibasic 133 Ml Enema) 133 ml [place] ONCE PRN PRN Reason: Constipation Trazodone HCl (Trazodone Hcl 50 Mg Tablet) 50 mg PO BEDTIME MRX1 PRN PRN Reason: Insomnia Last Admin: 06/17/24 20:24 Dose: 50 mg Venlafaxine HCl (Venlafaxine Hcl 25 Mg Tablet) 37.5 mg PO DAILY COUNT INCLUDES THE [facility] Last Admin: 06/29/24 08:37 Dose: 37.5 mg Allergies Allergies Allergy/AdvReac Type Severity Reaction Status Date / Time Sulfa (Sulfonamide AdvReac Mild Nausea and Verified 06/01/24 23:32 Antibiotics) Vomiting amoxicillin [From Augmentin] AdvReac Nausea and Verified 06/02/24 00:04 Vomiting clavulanic acid AdvReac Nausea and Verified 06/02/24 00:04 [From Augmentin] Vomiting Assessment & Plan Assessment & Plan (1) Schizoaffective disorder, bipolar type: Status: Acute Code(s): F25.0 - Schizoaffective disorder, bipolar type (2) HTN (hypertension): Status: Acute Code(s): I10 - Essential (primary) hypertension (3) HLD (hyperlipidemia): Status: Acute Code(s): E78.5 - Hyperlipidemia, unspecified Plan She has positive screening EIA ,treponemal test. She has negative treponemal TP-[place],direct for syphilis. Also screening RPR titer,nontreponemal or indirect measure of syphilis is negative. There is no recent exposures,no history or symptoms of it. HIV is negative. Best explanation is false positive screening test EIA which can appear if there are random antibodies in blood react. No treatment or further testing for syphilis at this time and symptoms arent explained by syphilis. The patient is a 64-year-old female with a past history of schizoaffective disorder who was initially admitted from the community since she was agitated. She was transferred to and later on transferred to geriatric psychiatrist since the patient is poorly functional with severe cognitive impairment. Plan 1. Continue with fluphenazine and Zyprexa as prescribed. 2. Filing for Section 7 and 8. 3. Reassessment with results. 4. Blood work 0n 9/8 came back stable. 5. Working on placement. 06/29/24: Continue tx PIO sent to PCP Carlos Eduardo Scott [place] Reason for continued inpatient stay Substantial Risk for: rapid decompensation Time Spent With Patient Time: Total time managing care of this patient today ____ minutes.
--- NOTE | 2024-06-29 10:01 | PC.NURSE ---
Negar declined Depakote and Reema Perez NP notified. Negar is on Toprol and parameters state to hold Toprol for heart rate less than 60. Negar has been seen by hospitalist and it has been documented that she is in sinus antoinette from EKG by hospitalist NOEL Couch. HR has been 50s-70s and Toprol administered this morning as she has been in the 50s. Reema Perez NP notified and asked to change parameters for heart rate under Toprol order as she is often sinus antoinette. To note Negar is asymptomatic from bradycardia.
[2024-06-29] MEDS: hydrOXYzine HCL 10 MG TABLET PO (17:40)
[2024-06-29 20:00] VITALS: BP 120/60; PULSE 57; RESP 16; TEMP 36.6; O2SAT 99
[2024-06-29] MEDS: OLANZapine 10 MG TABLET PO (21:05)
[2024-06-30 08:05] VITALS: BP 131/60; PULSE 63; RESP 18; TEMP 36.7; O2SAT 96
[2024-06-30] MEDS: Venlafaxine HCL 25 MG TABLET 37.5 MG PO (08:41)
[2024-06-30] MEDS: polyethylene glycoL 3350 17 GM POWD.PACK PO (08:41)
[2024-06-30] MEDS: fluPHENAZine HCl 5 MG TABLET 10 MG PO ×2 (08:43→21:06)
[2024-06-30] MEDS: amLODIPine Besylate 5 MG TABLET PO (08:43)
[2024-06-30] MEDS: guanFACINE HCl ER 1 MG TAB.ER.24H PO (08:43)
[2024-06-30] MEDS: Benztropine Mesylate 1 MG TABLET PO ×2 (08:43→21:06)
[2024-06-30] MEDS: Metoprolol Succinate ER 25 MG TAB.ER.24H PO (08:43)
[2024-06-30] MEDS: LORazepam 0.5 MG TABLET PO ×4 (08:43→21:06)
[2024-06-30] MEDS: Gabapentin 300 MG CAPSULE PO ×3 (08:43→21:06)
--- NOTE | 2024-06-30 09:27 | HO.PSYCHPN ---
Subjective Subjective Date of Service: 06/30/24 Reason For Visit: schizoaffective disorder, bipolar type Subjective Notes: Section 7 Interim History: Pt somatically preoccupied thinking she has disease doctors have not been diagnosed. She has been sleeping well. She denies SI/HI. She is visible on the unit. Appears more organized but with underlying delusions. No behavioral concerns. Diagnostics Vital Signs (24Hr): Vital Signs - 24 hr 06/29/24 20:00 Temperature 97.9 F Pulse Rate 57 Respiratory Rate 16 Blood Pressure 120/60 Pulse Oximetry 99 Oxygen Delivery Method Room Air BMI result Body Mass Index 23.7 Labs 06/25/24 08:04 06/25/24 08:04 Medications Medications Current Medications Acetaminophen (Acetaminophen 325 Mg Tablet) 650 mg PO Q6H PRN PRN Reason: Headache/Pain Mild Scale (1-3) Last Admin: 06/28/24 20:42 Dose: 650 mg Al Hydroxide/Mg Hydroxide (Magnesium Hydrox/Alum Hydrox 30 Ml Oral.Susp) 30 ml PO Q6H PRN PRN Reason: Heartburn/Nausea Amlodipine Besylate (Amlodipine Besylate 5 Mg Tablet) 5 mg PO DAILY [facility]; Protocol Last Admin: 06/30/24 08:43 Dose: 5 mg Benztropine Mesylate (Benztropine Mesylate 1 Mg Tablet) 1 mg PO BID [facility] Last Admin: 06/30/24 08:43 Dose: 1 mg Divalproex Sodium (Divalproex Sodium Er 500 Mg Tab.Er.24h) 500 mg PO BID [facility] Last Admin: 06/30/24 08:48 Dose: Not Given Fluphenazine HCl (Fluphenazine Hcl 5 Mg Tablet) 10 mg PO BID [facility] Last Admin: 06/30/24 08:43 Dose: 10 mg Gabapentin (Gabapentin 300 Mg Capsule) 300 mg PO TID [facility] Last Admin: 06/30/24 08:43 Dose: 300 mg Guanfacine HCl (Guanfacine Hcl Er 1 Mg Tab.Er.24h) 1 mg PO DAILY [facility] Last Admin: 06/30/24 08:43 Dose: 1 mg Hydroxyzine HCl (Hydroxyzine Hcl 10 Mg Tablet) 10 mg PO Q8H PRN PRN Reason: Anxiety Last Admin: 06/29/24 17:40 Dose: 10 mg Lidocaine HCl (Lidocaine 4 % Cream Kit) 1 appl TOPICAL DAILY PRN; Protocol PRN Reason: numb area prior to blood draw Lorazepam (Lorazepam 0.5 Mg Tablet) 0.5 mg PO QID [facility] Last Admin: 06/30/24 08:43 Dose: 0.5 mg Magnesium Hydroxide (Milk Of Magnesia 30 Ml Oral.Susp) 30 ml PO DAILY PRN PRN Reason: Constipation Metoprolol Succinate (Metoprolol Succinate Er 25 Mg Tab.Er.24h) 25 mg PO DAILY [facility]; Protocol Last Admin: 06/30/24 08:43 Dose: 25 mg Nicotine (Nicotine 14 Mg Patch.Td24) 14 mg TRANSDERMA DAILY PRN PRN Reason: Nicotine Cravings Nicotine Polacrilex (Nicotine Polacrilex Lozenge 4 Mg Lozenge) 4 mg BUCCAL Q2H PRN PRN Reason: Nicotine Cravings Olanzapine (Olanzapine 10 Mg Tablet) 10 mg PO BEDTIME [facility] Last Admin: 06/29/24 21:05 Dose: 10 mg Polyethylene Glycol (Polyethylene Glycol 3350 17 Gm Powd.Pack) 17 gm PO DAILY [facility] Last Admin: 06/30/24 08:41 Dose: 17 gm Sodium Biphosphate/Sodium Phosphate (Sodium Phosphate,[place]-Dibasic 133 Ml Enema) 133 ml [place] ONCE PRN PRN Reason: Constipation Trazodone HCl (Trazodone Hcl 50 Mg Tablet) 50 mg PO BEDTIME MRX1 PRN PRN Reason: Insomnia Last Admin: 06/17/24 20:24 Dose: 50 mg Venlafaxine HCl (Venlafaxine Hcl 25 Mg Tablet) 37.5 mg PO DAILY [facility] Last Admin: 06/30/24 08:41 Dose: 37.5 mg Allergies Allergies Allergy/AdvReac Type Severity Reaction Status Date / Time Sulfa (Sulfonamide AdvReac Mild Nausea and Verified 06/01/24 23:32 Antibiotics) Vomiting amoxicillin [From Augmentin] AdvReac Nausea and Verified 06/02/24 00:04 Vomiting clavulanic acid AdvReac Nausea and Verified 06/02/24 00:04 [From Augmentin] Vomiting Assessment & Plan Assessment & Plan (1) Schizoaffective disorder, bipolar type: Status: Acute Code(s): F25.0 - Schizoaffective disorder, bipolar type (2) HTN (hypertension): Status: Acute Code(s): I10 - Essential (primary) hypertension (3) HLD (hyperlipidemia): Status: Acute Code(s): E78.5 - Hyperlipidemia, unspecified Plan She has positive screening EIA ,treponemal test. She has negative treponemal TP-[place],direct for syphilis. Also screening RPR titer,nontreponemal or indirect measure of syphilis is negative. There is no recent exposures,no history or symptoms of it. HIV is negative. Best explanation is false positive screening test EIA which can appear if there are random antibodies in blood react. No treatment or further testing for syphilis at this time and symptoms arent explained by syphilis. The patient is a 64-year-old female with a past history of schizoaffective disorder who was initially admitted from the community since she was agitated. She was transferred to and later on transferred to geriatric psychiatrist since the patient is poorly functional with severe cognitive impairment. Plan 06/29/24: Continue tx PIO sent to PCP Carlos Eduardo Scott [place] 06/30 increase prolixin to 10mg po daily and 15mg po qhs, increase olanzapine to 15mg po qhs. d/c depakote. Reason for continued inpatient stay Substantial Risk for: inability to function Time Spent With Patient Time: Total time managing care of this patient today ____ minutes.
[2024-06-30 20:00] VITALS: BP 121/59; PULSE 57; RESP 16; TEMP 36.6; O2SAT 98
[2024-06-30] MEDS: OLANZapine 10 MG TABLET PO (21:06)
[2024-07-01 08:05] VITALS: BP 120/69; PULSE 66; RESP 18; TEMP 36.6; O2SAT 97
[2024-07-01] MEDS: Venlafaxine HCL 25 MG TABLET 37.5 MG PO (08:20)
[2024-07-01] MEDS: Gabapentin 300 MG CAPSULE PO ×3 (08:20→21:07)
[2024-07-01] MEDS: Benztropine Mesylate 1 MG TABLET PO ×2 (08:20→21:08)
[2024-07-01] MEDS: amLODIPine Besylate 5 MG TABLET PO (08:20)
[2024-07-01] MEDS: LORazepam 0.5 MG TABLET PO ×3 (08:20→21:08)
[2024-07-01] MEDS: fluPHENAZine HCl 5 MG TABLET 10 MG PO (08:21)
[2024-07-01] MEDS: Metoprolol Succinate ER 25 MG TAB.ER.24H PO (08:21)
[2024-07-01] MEDS: guanFACINE HCl ER 1 MG TAB.ER.24H PO (08:22)
[2024-07-01] MEDS: polyethylene glycoL 3350 17 GM POWD.PACK PO (08:23)
--- NOTE | 2024-07-01 11:18 | HO.PSYCHPN ---
Subjective Subjective Date of Service: 07/01/24 Reason For Visit: schizoaffective disorder, bipolar type Subjective Notes: Section 7 Interim History: Pt somatically preoccupied thinking she has disease doctors have not been diagnosed. She has been sleeping well. She denies SI/HI. She is visible on the unit. Appears more organized but with underlying delusions. No behavioral concerns. Review of Systems Review of Systems General: No fevers, malaise, unintentional weight loss HEENT: No blurred vision, diplopia. No sore throat, nasal congestion, rhinorrhea, sinus pain, ear pain Cardiovascular: No chest pain, palpitations, or leg edema Respiratory: No shortness of breath, wheezing, cough GI: No abdominal pain, nausea, vomiting, diarrhea, constipation, melena, hematochezia : No dysuria, hematuria, increased urinary frequency, decreased urinary output [employer]: +Vaginal discharge MSK: No myalgia, back pain Neuro: No headaches, weakness, paresthesias Skin: No rashes or lesions Yes all other systems are reviewed and are negative (denies today) and Unobtainable due to mental status Mental Status Exam Mental Status Exam Patient Appearance: Fatigued and Appropriate Patient Orientation: Person and Situation Level of Consciousness: Awake and Appropriate Patient Behavior: Guarded and Passive Mood Description: Withdrawn Affect Description: Constricted Patient Cognition Impaired: Yes Ability to Follow Directions: Good Speech Pattern: Clear Memory Description: Episodic Impaired Diagnostics Vital Signs (24Hr): Vital Signs - 24 hr 06/30/24 20:00 07/01/24 08:05 Temperature 97.9 F 97.9 F Pulse Rate 57 66 Respiratory Rate 16 18 Blood Pressure 121/59 L 120/69 Pulse Oximetry 98 97 Oxygen Delivery Method Room Air Room Air BMI result Body Mass Index 23.7 Labs 06/25/24 08:04 06/25/24 08:04 Medications Medications Current Medications Acetaminophen (Acetaminophen 325 Mg Tablet) 650 mg PO Q6H PRN PRN Reason: Headache/Pain Mild Scale (1-3) Last Admin: 06/28/24 20:42 Dose: 650 mg Al Hydroxide/Mg Hydroxide (Magnesium Hydrox/Alum Hydrox 30 Ml Oral.Susp) 30 ml PO Q6H PRN PRN Reason: Heartburn/Nausea Amlodipine Besylate (Amlodipine Besylate 5 Mg Tablet) 5 mg PO DAILY [facility]; Protocol Last Admin: 07/01/24 08:20 Dose: 5 mg Benztropine Mesylate (Benztropine Mesylate 1 Mg Tablet) 1 mg PO BID [facility] Last Admin: 07/01/24 08:20 Dose: 1 mg Fluphenazine HCl (Fluphenazine Hcl 5 Mg Tablet) 10 mg PO DAILY [facility] Fluphenazine HCl (Fluphenazine Hcl 5 Mg Tablet) 15 mg PO BEDTIME [facility] Gabapentin (Gabapentin 300 Mg Capsule) 300 mg PO TID [facility] Last Admin: 07/01/24 08:20 Dose: 300 mg Guanfacine HCl (Guanfacine Hcl Er 1 Mg Tab.Er.24h) 1 mg PO DAILY [facility] Last Admin: 07/01/24 08:22 Dose: 1 mg Hydroxyzine HCl (Hydroxyzine Hcl 10 Mg Tablet) 10 mg PO Q8H PRN PRN Reason: Anxiety Last Admin: 06/29/24 17:40 Dose: 10 mg Lidocaine HCl (Lidocaine 4 % Cream Kit) 1 appl TOPICAL DAILY PRN; Protocol PRN Reason: numb area prior to blood draw Lorazepam (Lorazepam 0.5 Mg Tablet) 0.5 mg PO QID [facility] Last Admin: 07/01/24 08:20 Dose: 0.5 mg Magnesium Hydroxide (Milk Of Magnesia 30 Ml Oral.Susp) 30 ml PO DAILY PRN PRN Reason: Constipation Metoprolol Succinate (Metoprolol Succinate Er 25 Mg Tab.Er.24h) 25 mg PO DAILY [facility]; Protocol Last Admin: 07/01/24 08:21 Dose: 25 mg Nicotine (Nicotine 14 Mg Patch.Td24) 14 mg TRANSDERMA DAILY PRN PRN Reason: Nicotine Cravings Nicotine Polacrilex (Nicotine Polacrilex Lozenge 4 Mg Lozenge) 4 mg BUCCAL Q2H PRN PRN Reason: Nicotine Cravings Olanzapine (Olanzapine 7.5 Mg Tablet) 15 mg PO BEDTIME [facility] Polyethylene Glycol (Polyethylene Glycol 3350 17 Gm Powd.Pack) 17 gm PO DAILY [facility] Last Admin: 07/01/24 08:23 Dose: 17 gm Sodium Biphosphate/Sodium Phosphate (Sodium Phosphate,[place]-Dibasic 133 Ml Enema) 133 ml [place] ONCE PRN PRN Reason: Constipation Trazodone HCl (Trazodone Hcl 50 Mg Tablet) 50 mg PO BEDTIME MRX1 PRN PRN Reason: Insomnia Last Admin: 06/17/24 20:24 Dose: 50 mg Allergies Allergies Allergy/AdvReac Type Severity Reaction Status Date / Time Sulfa (Sulfonamide AdvReac Mild Nausea and Verified 06/01/24 23:32 Antibiotics) Vomiting amoxicillin [From Augmentin] AdvReac Nausea and Verified 06/02/24 00:04 Vomiting clavulanic acid AdvReac Nausea and Verified 06/02/24 00:04 [From Augmentin] Vomiting Assessment & Plan Assessment & Plan (1) Schizoaffective disorder, bipolar type: Status: Acute Code(s): F25.0 - Schizoaffective disorder, bipolar type (2) HTN (hypertension): Status: Acute Code(s): I10 - Essential (primary) hypertension (3) HLD (hyperlipidemia): Status: Acute Code(s): E78.5 - Hyperlipidemia, unspecified Plan She has positive screening EIA ,treponemal test. She has negative treponemal TP-PA,direct for syphilis. Also screening RPR titer,nontreponemal or indirect measure of syphilis is negative. There is no recent exposures,no history or symptoms of it. HIV is negative. Best explanation is false positive screening test EIA which can appear if there are random antibodies in blood react. No treatment or further testing for syphilis at this time and symptoms arent explained by syphilis. The patient is a 64-year-old female with a past history of schizoaffective disorder who was initially admitted from the community since she was agitated. She was transferred to and later on transferred to geriatric psychiatrist since the patient is poorly functional with severe cognitive impairment. Plan 06/29/24: Continue tx PIO sent to PCP Carlos Eduardo Scott Pickett 06/30 increase prolixin to 10mg po daily and 15mg po qhs, increase olanzapine to 15mg po qhs. d/c depakote. 07/01 continue tx. Reason for continued inpatient stay Substantial Risk for: inability to function Time Spent With Patient Time: Total time managing care of this patient today ____ minutes.
[2024-07-01] MEDS: OLANZapine 7.5 MG TABLET 15 MG PO (21:06)
[2024-07-01] MEDS: fluPHENAZine HCl 5 MG TABLET 15 MG PO (21:07)
[2024-07-02 08:00] VITALS: BP 115/66; PULSE 66; RESP 18; TEMP 36.6; O2SAT 98
[2024-07-02] MEDS: Benztropine Mesylate 1 MG TABLET PO ×2 (08:42→21:25)
[2024-07-02] MEDS: polyethylene glycoL 3350 17 GM POWD.PACK PO (08:42)
[2024-07-02] MEDS: Metoprolol Succinate ER 25 MG TAB.ER.24H PO (08:43)
[2024-07-02] MEDS: Gabapentin 300 MG CAPSULE PO ×3 (08:43→21:25)
[2024-07-02] MEDS: guanFACINE HCl ER 1 MG TAB.ER.24H PO (08:43)
[2024-07-02] MEDS: fluPHENAZine HCl 5 MG TABLET 10 MG PO (08:43)
[2024-07-02] MEDS: LORazepam 0.5 MG TABLET PO ×3 (08:44→21:25)
[2024-07-02] MEDS: amLODIPine Besylate 5 MG TABLET PO (08:44)
--- NOTE | 2024-07-02 12:36 | P.PNPSI_ITS ---
Subjective Subjective Date of Service: 07/02/24 Reason For Visit: schizoaffective disorder, bipolar type Subjective Notes: Conditional Voluntary Interim History: The nursing staff reported no changes in her mental status, today she refused her Depakote. Overall she looks less internally preoccupied. Over the weekend we increased her medications with for tolerability. On interview the patient denies new symptoms, waiting for placement. Mental Status Exam Mental Status Exam Patient Appearance: Well Grooomed and Appropriate Patient Orientation: Person and Situation Level of Consciousness: Awake Patient Behavior: Guarded and Passive Mood Description: Withdrawn Affect Description: Constricted Patient Cognition Impaired: Yes Ability to Follow Directions: Good Speech Pattern: Clear Hallucinations: None Delusions: Not Present Thought Process: Distracted and Slowed Thinking Thought Content: positive for [place] and positive for Poverty of Content Judgement: Poor Diagnostics Vital Signs (24Hr): Vital Signs - 24 hr 07/02/24 08:00 Temperature 97.9 F Pulse Rate 66 Respiratory Rate 18 Blood Pressure 115/66 Pulse Oximetry 98 Oxygen Delivery Method Room Air BMI result Body Mass Index 23.7 Labs 06/25/24 08:04 06/25/24 08:04 Medications Medications Current Medications Acetaminophen (Acetaminophen 325 Mg Tablet) 650 mg PO Q6H PRN PRN Reason: Headache/Pain Mild Scale (1-3) Last Admin: 06/28/24 20:42 Dose: 650 mg Al Hydroxide/Mg Hydroxide (Magnesium Hydrox/Alum Hydrox 30 Ml Oral.Susp) 30 ml PO Q6H PRN PRN Reason: Heartburn/Nausea Amlodipine Besylate (Amlodipine Besylate 5 Mg Tablet) 5 mg PO DAILY [facility]; Protocol Last Admin: 07/02/24 08:44 Dose: 5 mg Benztropine Mesylate (Benztropine Mesylate 1 Mg Tablet) 1 mg PO BID [facility] Last Admin: 07/02/24 08:42 Dose: 1 mg Fluphenazine HCl (Fluphenazine Hcl 5 Mg Tablet) 10 mg PO DAILY [facility] Last Admin: 07/02/24 08:43 Dose: 10 mg Fluphenazine HCl (Fluphenazine Hcl 5 Mg Tablet) 15 mg PO BEDTIME [facility] Last Admin: 07/01/24 21:07 Dose: 15 mg Gabapentin (Gabapentin 300 Mg Capsule) 300 mg PO TID [facility] Last Admin: 07/02/24 08:43 Dose: 300 mg Guanfacine HCl (Guanfacine Hcl Er 1 Mg Tab.Er.24h) 1 mg PO DAILY [facility] Last Admin: 07/02/24 08:43 Dose: 1 mg Hydroxyzine HCl (Hydroxyzine Hcl 10 Mg Tablet) 10 mg PO Q8H PRN PRN Reason: Anxiety Last Admin: 06/29/24 17:40 Dose: 10 mg Lidocaine HCl (Lidocaine 4 % Cream Kit) 1 appl TOPICAL DAILY PRN; Protocol PRN Reason: numb area prior to blood draw Lorazepam (Lorazepam 0.5 Mg Tablet) 0.5 mg PO TID [facility] Last Admin: 07/02/24 08:44 Dose: 0.5 mg Magnesium Hydroxide (Milk Of Magnesia 30 Ml Oral.Susp) 30 ml PO DAILY PRN PRN Reason: Constipation Metoprolol Succinate (Metoprolol Succinate Er 25 Mg Tab.Er.24h) 25 mg PO DAILY [facility]; Protocol Last Admin: 07/02/24 08:43 Dose: 25 mg Nicotine (Nicotine 14 Mg Patch.Td24) 14 mg TRANSDERMA DAILY PRN PRN Reason: Nicotine Cravings Nicotine Polacrilex (Nicotine Polacrilex Lozenge 4 Mg Lozenge) 4 mg BUCCAL Q2H PRN PRN Reason: Nicotine Cravings Olanzapine (Olanzapine 7.5 Mg Tablet) 15 mg PO BEDTIME [facility] Last Admin: 07/01/24 21:06 Dose: 15 mg Polyethylene Glycol (Polyethylene Glycol 3350 17 Gm Powd.Pack) 17 gm PO DAILY [facility] Last Admin: 07/02/24 08:42 Dose: 17 gm Sodium Biphosphate/Sodium Phosphate (Sodium Phosphate,[place]-Dibasic 133 Ml Enema) 133 ml [place] ONCE PRN PRN Reason: Constipation Trazodone HCl (Trazodone Hcl 50 Mg Tablet) 50 mg PO BEDTIME MRX1 PRN PRN Reason: Insomnia Last Admin: 06/17/24 20:24 Dose: 50 mg Allergies Allergies Allergy/AdvReac Type Severity Reaction Status Date / Time Sulfa (Sulfonamide AdvReac Mild Nausea and Verified 06/01/24 23:32 Antibiotics) Vomiting amoxicillin [From Augmentin] AdvReac Nausea and Verified 06/02/24 00:04 Vomiting clavulanic acid AdvReac Nausea and Verified 06/02/24 00:04 [From Augmentin] Vomiting Assessment & Plan Assessment & Plan (1) Schizoaffective disorder, bipolar type: Status: Acute Code(s): F25.0 - Schizoaffective disorder, bipolar type (2) HTN (hypertension): Status: Acute Code(s): I10 - Essential (primary) hypertension (3) HLD (hyperlipidemia): Status: Acute Code(s): E78.5 - Hyperlipidemia, unspecified Plan She has positive screening EIA ,treponemal test. She has negative treponemal TP-PA,direct for syphilis. Also screening RPR titer,nontreponemal or indirect measure of syphilis is negative. There is no recent exposures,no history or symptoms of it. HIV is negative. Best explanation is false positive screening test EIA which can appear if there are random antibodies in blood react. No treatment or further testing for syphilis at this time and symptoms arent explained by syphilis. The patient is a 64-year-old female with a past history of schizoaffective disorder who was initially admitted from the community since she was agitated. She was transferred to and later on transferred to geriatric psychiatrist since the patient is poorly functional with severe cognitive impairment. Plan 1. Continue current treatment. 2. Waiting for placement. Reason for continued inpatient stay Substantial Risk for: inability to function, rapid decompensation and med/psych decompensation Time Spent With Patient Time: Total time managing care of this patient today _20___ minutes.
[2024-07-02 20:00] VITALS: BP 120/58; PULSE 55; RESP 16; TEMP 36.4; O2SAT 98
[2024-07-02] MEDS: OLANZapine 7.5 MG TABLET 15 MG PO (21:24)
[2024-07-02] MEDS: traZODone HCL 50 MG TABLET PO (21:25)
[2024-07-02] MEDS: fluPHENAZine HCl 5 MG TABLET 15 MG PO (21:25)
[2024-07-03 07:55] VITALS: BP 131/68; PULSE 69; RESP 18; TEMP 36.8; O2SAT 98
[2024-07-03] MEDS: Gabapentin 300 MG CAPSULE PO ×3 (08:06→20:10)
[2024-07-03] MEDS: Metoprolol Succinate ER 25 MG TAB.ER.24H PO (08:06)
[2024-07-03] MEDS: amLODIPine Besylate 5 MG TABLET PO (08:06)
[2024-07-03] MEDS: LORazepam 0.5 MG TABLET PO ×3 (08:06→20:10)
[2024-07-03] MEDS: Benztropine Mesylate 1 MG TABLET PO ×2 (08:06→20:09)
[2024-07-03] MEDS: guanFACINE HCl ER 1 MG TAB.ER.24H PO (08:06)
[2024-07-03] MEDS: polyethylene glycoL 3350 17 GM POWD.PACK PO (08:07)
[2024-07-03] MEDS: fluPHENAZine HCl 5 MG TABLET 10 MG PO (08:07)
--- NOTE | 2024-07-03 12:24 | HO.PSYCHPN ---
Subjective Subjective Date of Service: 07/03/24 Reason For Visit: schizoaffective disorder, bipolar type Subjective Notes: Conditional Voluntary Interim History: The nursing staff reported the patient had been pleasant, compliant with treatment. No evidence of over-sedation with increase of medications. On interview the patient denies new symptoms, waiting for placement. The social professionals still working on a disposition to retirement facility. Mental Status Exam Mental Status Exam Patient Appearance: Well Grooomed and Appropriate Patient Orientation: Person and Situation Level of Consciousness: Awake and Appropriate Patient Behavior: Guarded and Passive Mood Description: Withdrawn Affect Description: Constricted Patient Cognition Impaired: Yes Ability to Follow Directions: Good Speech Pattern: Clear Hallucinations: None Delusions: Not Present Thought Process: Distracted and Slowed Thinking Thought Content: positive for [place] and positive for Poverty of Content Judgement: Poor Diagnostics Vital Signs (24Hr): Vital Signs - 24 hr 07/02/24 20:00 07/03/24 07:55 Temperature 97.6 F 98.2 F Pulse Rate 55 69 Respiratory Rate 16 18 Blood Pressure 120/58 L 131/68 Pulse Oximetry 98 98 Oxygen Delivery Method Room Air Room Air BMI result Body Mass Index 23.7 Labs 06/25/24 08:04 06/25/24 08:04 Medications Medications Current Medications Acetaminophen (Acetaminophen 325 Mg Tablet) 650 mg PO Q6H PRN PRN Reason: Headache/Pain Mild Scale (1-3) Last Admin: 06/28/24 20:42 Dose: 650 mg Al Hydroxide/Mg Hydroxide (Magnesium Hydrox/Alum Hydrox 30 Ml Oral.Susp) 30 ml PO Q6H PRN PRN Reason: Heartburn/Nausea Amlodipine Besylate (Amlodipine Besylate 5 Mg Tablet) 5 mg PO DAILY [facility]; Protocol Last Admin: 07/03/24 08:06 Dose: 5 mg Benztropine Mesylate (Benztropine Mesylate 1 Mg Tablet) 1 mg PO BID [facility] Last Admin: 07/03/24 08:06 Dose: 1 mg Fluphenazine HCl (Fluphenazine Hcl 5 Mg Tablet) 10 mg PO DAILY [facility] Last Admin: 07/03/24 08:07 Dose: 10 mg Fluphenazine HCl (Fluphenazine Hcl 5 Mg Tablet) 15 mg PO BEDTIME [facility] Last Admin: 07/02/24 21:25 Dose: 15 mg Gabapentin (Gabapentin 300 Mg Capsule) 300 mg PO TID [facility] Last Admin: 07/03/24 08:06 Dose: 300 mg Guanfacine HCl (Guanfacine Hcl Er 1 Mg Tab.Er.24h) 1 mg PO DAILY [facility] Last Admin: 07/03/24 08:06 Dose: 1 mg Hydroxyzine HCl (Hydroxyzine Hcl 10 Mg Tablet) 10 mg PO Q8H PRN PRN Reason: Anxiety Last Admin: 06/29/24 17:40 Dose: 10 mg Lidocaine HCl (Lidocaine 4 % Cream Kit) 1 appl TOPICAL DAILY PRN; Protocol PRN Reason: numb area prior to blood draw Lorazepam (Lorazepam 0.5 Mg Tablet) 0.5 mg PO TID [facility] Last Admin: 07/03/24 08:06 Dose: 0.5 mg Magnesium Hydroxide (Milk Of Magnesia 30 Ml Oral.Susp) 30 ml PO DAILY PRN PRN Reason: Constipation Metoprolol Succinate (Metoprolol Succinate Er 25 Mg Tab.Er.24h) 25 mg PO DAILY [facility]; Protocol Last Admin: 07/03/24 08:06 Dose: 25 mg Nicotine (Nicotine 14 Mg Patch.Td24) 14 mg TRANSDERMA DAILY PRN PRN Reason: Nicotine Cravings Nicotine Polacrilex (Nicotine Polacrilex Lozenge 4 Mg Lozenge) 4 mg BUCCAL Q2H PRN PRN Reason: Nicotine Cravings Olanzapine (Olanzapine 7.5 Mg Tablet) 15 mg PO BEDTIME [facility] Last Admin: 07/02/24 21:24 Dose: 15 mg Polyethylene Glycol (Polyethylene Glycol 3350 17 Gm Powd.Pack) 17 gm PO DAILY [facility] Last Admin: 07/03/24 08:07 Dose: 17 gm Sodium Biphosphate/Sodium Phosphate (Sodium Phosphate,[place]-Dibasic 133 Ml Enema) 133 ml [place] ONCE PRN PRN Reason: Constipation Trazodone HCl (Trazodone Hcl 50 Mg Tablet) 50 mg PO BEDTIME MRX1 PRN PRN Reason: Insomnia Last Admin: 07/02/24 21:25 Dose: 50 mg Allergies Allergies Allergy/AdvReac Type Severity Reaction Status Date / Time Sulfa (Sulfonamide AdvReac Mild Nausea and Verified 06/01/24 23:32 Antibiotics) Vomiting amoxicillin [From Augmentin] AdvReac Nausea and Verified 06/02/24 00:04 Vomiting clavulanic acid AdvReac Nausea and Verified 06/02/24 00:04 [From Augmentin] Vomiting Assessment & Plan Assessment & Plan (1) Schizoaffective disorder, bipolar type: Status: Acute Code(s): F25.0 - Schizoaffective disorder, bipolar type (2) HTN (hypertension): Status: Acute Code(s): I10 - Essential (primary) hypertension (3) HLD (hyperlipidemia): Status: Acute Code(s): E78.5 - Hyperlipidemia, unspecified Plan She has positive screening EIA ,treponemal test. She has negative treponemal TP-PA,direct for syphilis. Also screening RPR titer,nontreponemal or indirect measure of syphilis is negative. There is no recent exposures,no history or symptoms of it. HIV is negative. Best explanation is false positive screening test EIA which can appear if there are random antibodies in blood react. No treatment or further testing for syphilis at this time and symptoms arent explained by syphilis. The patient is a 64-year-old female with a past history of schizoaffective disorder who was initially admitted from the community since she was agitated. She was transferred to and later on transferred to geriatric psychiatrist since the patient is poorly functional with severe cognitive impairment. Plan 1. Continue current treatment. 2. Waiting for placement. Reason for continued inpatient stay Substantial Risk for: inability to function, rapid decompensation and med/psych decompensation Time Spent With Patient Time: Total time managing care of this patient today __20__ minutes.
[2024-07-03 20:00] VITALS: BP 116/73; PULSE 50; RESP 18; TEMP 36; O2SAT 99
[2024-07-03] MEDS: fluPHENAZine HCl 5 MG TABLET 15 MG PO (20:09)
[2024-07-03] MEDS: OLANZapine 7.5 MG TABLET 15 MG PO (20:10)
[2024-07-03] MEDS: hydrOXYzine HCL 10 MG TABLET PO (20:43)
[2024-07-04 08:52] VITALS: BP 125/64; PULSE 58; RESP 16; TEMP 36.1; O2SAT 97
[2024-07-04] MEDS: Gabapentin 300 MG CAPSULE PO ×3 (09:08→20:26)
[2024-07-04] MEDS: amLODIPine Besylate 5 MG TABLET PO (09:08)
[2024-07-04] MEDS: fluPHENAZine HCl 5 MG TABLET 10 MG PO (09:08)
[2024-07-04] MEDS: LORazepam 0.5 MG TABLET PO ×3 (09:08→20:26)
[2024-07-04] MEDS: guanFACINE HCl ER 1 MG TAB.ER.24H PO (09:08)
[2024-07-04] MEDS: Benztropine Mesylate 1 MG TABLET PO ×2 (09:09→20:26)
--- NOTE | 2024-07-04 16:30 | P.PNPSI_ITS ---
Subjective Subjective Date of Service: 07/04/24 Reason For Visit: schizoaffective disorder, bipolar type Subjective Notes: Conditional Voluntary Interim History: The nursing staff reported the patient had been fully compliant with treadmill, easily redirectable. On interview the patient denies new symptoms compliant with treatment, denies side-effects. Mental Status Exam Mental Status Exam Patient Appearance: Appropriate Patient Orientation: Person and Situation Level of Consciousness: Awake and Appropriate Patient Behavior: Guarded and Passive Mood Description: Withdrawn Affect Description: Constricted Patient Cognition Impaired: Yes Ability to Follow Directions: Good Speech Pattern: Clear Hallucinations: None Delusions: Ideas of Reference Thought Process: Distracted and Slowed Thinking Thought Content: positive for [place] and positive for Poverty of Content Judgement: Fair Diagnostics Vital Signs (24Hr): Vital Signs - 24 hr 07/03/24 20:00 07/04/24 08:52 Temperature 96.8 F 96.9 F Pulse Rate 50 58 Respiratory Rate 18 16 Blood Pressure 116/73 125/64 Pulse Oximetry 99 97 Oxygen Delivery Method Room Air Room Air BMI result Body Mass Index 23.7 Labs 06/25/24 08:04 06/25/24 08:04 Medications Medications Current Medications Acetaminophen (Acetaminophen 325 Mg Tablet) 650 mg PO Q6H PRN PRN Reason: Headache/Pain Mild Scale (1-3) Last Admin: 06/28/24 20:42 Dose: 650 mg Al Hydroxide/Mg Hydroxide (Magnesium Hydrox/Alum Hydrox 30 Ml Oral.Susp) 30 ml PO Q6H PRN PRN Reason: Heartburn/Nausea Amlodipine Besylate (Amlodipine Besylate 5 Mg Tablet) 5 mg PO DAILY [facility]; Protocol Last Admin: 07/04/24 09:08 Dose: 5 mg Benztropine Mesylate (Benztropine Mesylate 1 Mg Tablet) 1 mg PO BID [facility] Last Admin: 07/04/24 09:09 Dose: 1 mg Fluphenazine HCl (Fluphenazine Hcl 5 Mg Tablet) 10 mg PO DAILY [facility] Last Admin: 07/04/24 09:08 Dose: 10 mg Fluphenazine HCl (Fluphenazine Hcl 5 Mg Tablet) 15 mg PO BEDTIME [facility] Last Admin: 07/03/24 20:09 Dose: 15 mg Gabapentin (Gabapentin 300 Mg Capsule) 300 mg PO TID [facility] Last Admin: 07/04/24 14:25 Dose: 300 mg Guanfacine HCl (Guanfacine Hcl Er 1 Mg Tab.Er.24h) 1 mg PO DAILY [facility] Last Admin: 07/04/24 09:08 Dose: 1 mg Hydroxyzine HCl (Hydroxyzine Hcl 10 Mg Tablet) 10 mg PO Q8H PRN PRN Reason: Anxiety Last Admin: 07/03/24 20:43 Dose: 10 mg Lidocaine HCl (Lidocaine 4 % Cream Kit) 1 appl TOPICAL DAILY PRN; Protocol PRN Reason: numb area prior to blood draw Lorazepam (Lorazepam 0.5 Mg Tablet) 0.5 mg PO TID [facility] Last Admin: 07/04/24 14:25 Dose: 0.5 mg Magnesium Hydroxide (Milk Of Magnesia 30 Ml Oral.Susp) 30 ml PO DAILY PRN PRN Reason: Constipation Metoprolol Succinate (Metoprolol Succinate Er 25 Mg Tab.Er.24h) 25 mg PO DAILY [facility]; Protocol Last Admin: 07/04/24 09:10 Dose: Not Given Nicotine (Nicotine 14 Mg Patch.Td24) 14 mg TRANSDERMA DAILY PRN PRN Reason: Nicotine Cravings Nicotine Polacrilex (Nicotine Polacrilex Lozenge 4 Mg Lozenge) 4 mg BUCCAL Q2H PRN PRN Reason: Nicotine Cravings Olanzapine (Olanzapine 7.5 Mg Tablet) 15 mg PO BEDTIME [facility] Last Admin: 07/03/24 20:10 Dose: 15 mg Polyethylene Glycol (Polyethylene Glycol 3350 17 Gm Powd.Pack) 17 gm PO DAILY [facility] Last Admin: 07/04/24 09:11 Dose: Not Given Sodium Biphosphate/Sodium Phosphate (Sodium Phosphate,[place]-Dibasic 133 Ml Enema) 133 ml [place] ONCE PRN PRN Reason: Constipation Trazodone HCl (Trazodone Hcl 50 Mg Tablet) 50 mg PO BEDTIME MRX1 PRN PRN Reason: Insomnia Last Admin: 07/02/24 21:25 Dose: 50 mg Allergies Allergies Allergy/AdvReac Type Severity Reaction Status Date / Time Sulfa (Sulfonamide AdvReac Mild Nausea and Verified 06/01/24 23:32 Antibiotics) Vomiting amoxicillin [From Augmentin] AdvReac Nausea and Verified 06/02/24 00:04 Vomiting clavulanic acid AdvReac Nausea and Verified 06/02/24 00:04 [From Augmentin] Vomiting Assessment & Plan Assessment & Plan (1) Schizoaffective disorder, bipolar type: Status: Acute Code(s): F25.0 - Schizoaffective disorder, bipolar type (2) HTN (hypertension): Status: Acute Code(s): I10 - Essential (primary) hypertension (3) HLD (hyperlipidemia): Status: Acute Code(s): E78.5 - Hyperlipidemia, unspecified Plan She has positive screening EIA ,treponemal test. She has negative treponemal TP-[place],direct for syphilis. Also screening RPR titer,nontreponemal or indirect measure of syphilis is negative. There is no recent exposures,no history or symptoms of it. HIV is negative. Best explanation is false positive screening test EIA which can appear if there are random antibodies in blood react. No treatment or further testing for syphilis at this time and symptoms arent explained by syphilis. The patient is a 64-year-old female with a past history of schizoaffective disorder who was initially admitted from the community since she was agitated. She was transferred to and later on transferred to geriatric psychiatrist since the patient is poorly functional with severe cognitive impairment. Plan 1. Continue current treatment. 2. Waiting for placement. Reason for continued inpatient stay Substantial Risk for: inability to function, rapid decompensation and med/psych decompensation Time Spent With Patient Time: Total time managing care of this patient today _20___ minutes.
[2024-07-04 20:00] VITALS: BP 113/65; PULSE 58; RESP 16; TEMP 36.2; O2SAT 99
[2024-07-04] MEDS: Acetaminophen 325 MG TABLET 650 MG PO (20:25)
[2024-07-04] MEDS: fluPHENAZine HCl 5 MG TABLET 15 MG PO (20:25)
[2024-07-04] MEDS: traZODone HCL 50 MG TABLET PO (20:26)
[2024-07-04] MEDS: OLANZapine 7.5 MG TABLET 15 MG PO (20:26)
[2024-07-04] MEDS: hydrOXYzine HCL 10 MG TABLET PO (21:54)
[2024-07-05 08:55] VITALS: BMI 23.8
--- NOTE | 2024-07-05 09:18 | HO.PSYCHPN ---
Subjective Subjective Date of Service: 07/05/24 Reason For Visit: schizoaffective disorder, bipolar type Subjective Notes: Conditional Voluntary Interim History: The nursing staff reported the patient was pleasant cooperative confused compliant with treatment. She slept 6 or 7 hours. The social media strategist reported no bed available yet. She spoke with her son and apparently when she was younger she used to abuse alcohol and deteriorate family relations. She got with another patient several years ago. On interview the patient denies new symptoms, waiting for placement. Mental Status Exam Mental Status Exam Patient Appearance: Appropriate Patient Orientation: Person and Situation Level of Consciousness: Awake and Appropriate Patient Behavior: Guarded and Passive Mood Description: Withdrawn Affect Description: Constricted Patient Cognition Impaired: Yes Ability to Follow Directions: Good Speech Pattern: Clear Hallucinations: None Delusions: Not Present Thought Process: Distracted and Slowed Thinking Thought Content: positive for [place] and positive for Poverty of Content Judgement: Fair Diagnostics Vital Signs (24Hr): Vital Signs - 24 hr 07/04/24 20:00 Temperature 97.2 F Pulse Rate 58 Respiratory Rate 16 Blood Pressure 113/65 Pulse Oximetry 99 Oxygen Delivery Method Room Air BMI result Body Mass Index 23.8 Labs 06/25/24 08:04 06/25/24 08:04 Medications Medications Current Medications Acetaminophen (Acetaminophen 325 Mg Tablet) 650 mg PO Q6H PRN PRN Reason: Headache/Pain Mild Scale (1-3) Last Admin: 07/04/24 20:25 Dose: 650 mg Al Hydroxide/Mg Hydroxide (Magnesium Hydrox/Alum Hydrox 30 Ml Oral.Susp) 30 ml PO Q6H PRN PRN Reason: Heartburn/Nausea Amlodipine Besylate (Amlodipine Besylate 5 Mg Tablet) 5 mg PO DAILY [facility]; Protocol Last Admin: 07/04/24 09:08 Dose: 5 mg Benztropine Mesylate (Benztropine Mesylate 1 Mg Tablet) 1 mg PO BID [facility] Last Admin: 07/04/24 20:26 Dose: 1 mg Fluphenazine HCl (Fluphenazine Hcl 5 Mg Tablet) 10 mg PO DAILY [facility] Last Admin: 07/04/24 09:08 Dose: 10 mg Fluphenazine HCl (Fluphenazine Hcl 5 Mg Tablet) 15 mg PO BEDTIME [facility] Last Admin: 07/04/24 20:25 Dose: 15 mg Gabapentin (Gabapentin 300 Mg Capsule) 300 mg PO TID [facility] Last Admin: 07/04/24 20:26 Dose: 300 mg Guanfacine HCl (Guanfacine Hcl Er 1 Mg Tab.Er.24h) 1 mg PO DAILY [facility] Last Admin: 07/04/24 09:08 Dose: 1 mg Hydroxyzine HCl (Hydroxyzine Hcl 10 Mg Tablet) 10 mg PO Q8H PRN PRN Reason: Anxiety Last Admin: 07/04/24 21:54 Dose: 10 mg Lidocaine HCl (Lidocaine 4 % Cream Kit) 1 appl TOPICAL DAILY PRN; Protocol PRN Reason: numb area prior to blood draw Lorazepam (Lorazepam 0.5 Mg Tablet) 0.5 mg PO TID [facility] Last Admin: 07/04/24 20:26 Dose: 0.5 mg Magnesium Hydroxide (Milk Of Magnesia 30 Ml Oral.Susp) 30 ml PO DAILY PRN PRN Reason: Constipation Metoprolol Succinate (Metoprolol Succinate Er 25 Mg Tab.Er.24h) 25 mg PO DAILY [facility]; Protocol Last Admin: 07/04/24 09:10 Dose: Not Given Nicotine (Nicotine 14 Mg Patch.Td24) 14 mg TRANSDERMA DAILY PRN PRN Reason: Nicotine Cravings Nicotine Polacrilex (Nicotine Polacrilex Lozenge 4 Mg Lozenge) 4 mg BUCCAL Q2H PRN PRN Reason: Nicotine Cravings Olanzapine (Olanzapine 7.5 Mg Tablet) 15 mg PO BEDTIME [facility] Last Admin: 07/04/24 20:26 Dose: 15 mg Polyethylene Glycol (Polyethylene Glycol 3350 17 Gm Powd.Pack) 17 gm PO DAILY [facility] Last Admin: 07/04/24 09:11 Dose: Not Given Sodium Biphosphate/Sodium Phosphate (Sodium Phosphate,[place]-Dibasic 133 Ml Enema) 133 ml [place] ONCE PRN PRN Reason: Constipation Trazodone HCl (Trazodone Hcl 50 Mg Tablet) 50 mg PO BEDTIME MRX1 PRN PRN Reason: Insomnia Last Admin: 07/04/24 20:26 Dose: 50 mg Allergies Allergies Allergy/AdvReac Type Severity Reaction Status Date / Time Sulfa (Sulfonamide AdvReac Mild Nausea and Verified 06/01/24 23:32 Antibiotics) Vomiting amoxicillin [From Augmentin] AdvReac Nausea and Verified 06/02/24 00:04 Vomiting clavulanic acid AdvReac Nausea and Verified 06/02/24 00:04 [From Augmentin] Vomiting Assessment & Plan Assessment & Plan (1) Schizoaffective disorder, bipolar type: Status: Acute Code(s): F25.0 - Schizoaffective disorder, bipolar type (2) HTN (hypertension): Status: Acute Code(s): I10 - Essential (primary) hypertension (3) HLD (hyperlipidemia): Status: Acute Code(s): E78.5 - Hyperlipidemia, unspecified Plan She has positive screening EIA ,treponemal test. She has negative treponemal TP-PA,direct for syphilis. Also screening RPR titer,nontreponemal or indirect measure of syphilis is negative. There is no recent exposures,no history or symptoms of it. HIV is negative. Best explanation is false positive screening test EIA which can appear if there are random antibodies in blood react. No treatment or further testing for syphilis at this time and symptoms arent explained by syphilis. The patient is a 64-year-old female with a past history of schizoaffective disorder who was initially admitted from the community since she was agitated. She was transferred to and later on transferred to geriatric psychiatrist since the patient is poorly functional with severe cognitive impairment. Plan 1. Continue current treatment. 2. Waiting for placement. Reason for continued inpatient stay Substantial Risk for: inability to function, rapid decompensation and med/psych decompensation Time Spent With Patient Time: Total time managing care of this patient today __20__ minutes.
[2024-07-05 09:30] VITALS: BP 124/64; PULSE 64; RESP 16; TEMP 36.3; O2SAT 96
[2024-07-05] MEDS: Gabapentin 300 MG CAPSULE PO ×3 (09:30→20:39)
[2024-07-05] MEDS: amLODIPine Besylate 5 MG TABLET PO (09:30)
[2024-07-05] MEDS: guanFACINE HCl ER 1 MG TAB.ER.24H PO (09:30)
[2024-07-05 09:31] VITALS: BP 89/69; PULSE 64
[2024-07-05] MEDS: Metoprolol Succinate ER 25 MG TAB.ER.24H PO (09:31)
[2024-07-05] MEDS: LORazepam 0.5 MG TABLET PO ×3 (09:32→20:39)
[2024-07-05] MEDS: Benztropine Mesylate 1 MG TABLET PO ×2 (09:32→20:39)
[2024-07-05] MEDS: fluPHENAZine HCl 5 MG TABLET 10 MG PO (09:32)
[2024-07-05] MEDS: hydrOXYzine HCL 10 MG TABLET PO (12:18)
[2024-07-05] MEDS: OLANZapine 5 MG TABLET PO (18:38)
[2024-07-05 20:00] VITALS: BP 119/58; PULSE 60; RESP 16; TEMP 36.3; O2SAT 100
[2024-07-05] MEDS: fluPHENAZine HCl 5 MG TABLET 15 MG PO (20:38)
[2024-07-05] MEDS: traZODone HCL 50 MG TABLET PO (21:56)
[2024-07-06 09:24] VITALS: BP 133/86; PULSE 56; RESP 16; TEMP 36.8; O2SAT 98
[2024-07-06] MEDS: fluPHENAZine HCl 5 MG TABLET 10 MG PO (09:33)
[2024-07-06 09:34] VITALS: BP 133/86; PULSE 56
[2024-07-06] MEDS: amLODIPine Besylate 5 MG TABLET PO (09:34)
[2024-07-06] MEDS: guanFACINE HCl ER 1 MG TAB.ER.24H PO (09:34)
[2024-07-06] MEDS: Metoprolol Succinate ER 25 MG TAB.ER.24H PO (09:34)
[2024-07-06] MEDS: Benztropine Mesylate 1 MG TABLET PO ×2 (09:34→20:36)
[2024-07-06] MEDS: Gabapentin 300 MG CAPSULE PO ×3 (09:34→20:36)
[2024-07-06] MEDS: LORazepam 0.5 MG TABLET PO ×3 (09:34→20:36)
[2024-07-06] MEDS: Acetaminophen 325 MG TABLET 650 MG PO (14:20)
--- NOTE | 2024-07-06 16:08 | P.PNPSI_ITS ---
Subjective Subjective Date of Service: 07/06/24 Reason For Visit: schizoaffective disorder, bipolar type Subjective Notes: Conditional Voluntary Interim History: The nursing staff reported the patient had been requesting Effexor at night for depression. She refused her Zyprexa last night. The health social work professor reported that she has been refused from the care home facility. On interview the patient denies new symptoms requested Effexor and explained her that [place] has to be during the day not at night to avoid insomnia. Mental Status Exam Mental Status Exam Patient Appearance: Appropriate Patient Orientation: Person and Situation Level of Consciousness: Awake and Appropriate Patient Behavior: Guarded and Passive Mood Description: Withdrawn Affect Description: Constricted Patient Cognition Impaired: Yes Ability to Follow Directions: Good Speech Pattern: Clear Hallucinations: None Delusions: Not Present Thought Process: Distracted and Slowed Thinking Thought Content: positive for [place] and positive for Poverty of Content Judgement: Fair Diagnostics Vital Signs (24Hr): Vital Signs - 24 hr 07/05/24 20:00 07/06/24 09:24 07/06/24 09:34 Temperature 97.4 F 98.2 F Pulse Rate 60 56 Respiratory Rate 16 16 Blood Pressure 119/58 L 133/86 133/86 Pulse Oximetry 100 98 Oxygen Delivery Method Room Air Room Air 07/06/24 09:34 Temperature Pulse Rate 56 Respiratory Rate Blood Pressure 133/86 Pulse Oximetry Oxygen Delivery Method BMI result Body Mass Index 23.8 Labs 06/25/24 08:04 06/25/24 08:04 Medications Medications Current Medications Acetaminophen (Acetaminophen 325 Mg Tablet) 650 mg PO Q6H PRN PRN Reason: Headache/Pain Mild Scale (1-3) Last Admin: 07/06/24 14:20 Dose: 650 mg Al Hydroxide/Mg Hydroxide (Magnesium Hydrox/Alum Hydrox 30 Ml Oral.Susp) 30 ml PO Q6H PRN PRN Reason: Heartburn/Nausea Amlodipine Besylate (Amlodipine Besylate 5 Mg Tablet) 5 mg PO DAILY [facility]; Protocol Last Admin: 07/06/24 09:34 Dose: 5 mg Benztropine Mesylate (Benztropine Mesylate 1 Mg Tablet) 1 mg PO BID [facility] Last Admin: 07/06/24 09:34 Dose: 1 mg Fluphenazine HCl (Fluphenazine Hcl 5 Mg Tablet) 10 mg PO DAILY [facility] Last Admin: 07/06/24 09:33 Dose: 10 mg Fluphenazine HCl (Fluphenazine Hcl 5 Mg Tablet) 15 mg PO BEDTIME [facility] Last Admin: 07/05/24 20:38 Dose: 15 mg Gabapentin (Gabapentin 300 Mg Capsule) 300 mg PO TID [facility] Last Admin: 07/06/24 14:20 Dose: 300 mg Guanfacine HCl (Guanfacine Hcl Er 1 Mg Tab.Er.24h) 1 mg PO DAILY [facility] Last Admin: 07/06/24 09:34 Dose: 1 mg Hydroxyzine HCl (Hydroxyzine Hcl 10 Mg Tablet) 10 mg PO Q8H PRN PRN Reason: Anxiety Last Admin: 07/05/24 12:18 Dose: 10 mg Lidocaine HCl (Lidocaine 4 % Cream Kit) 1 appl TOPICAL DAILY PRN; Protocol PRN Reason: numb area prior to blood draw Lorazepam (Lorazepam 0.5 Mg Tablet) 0.5 mg PO TID [facility] Last Admin: 07/06/24 14:20 Dose: 0.5 mg Magnesium Hydroxide (Milk Of Magnesia 30 Ml Oral.Susp) 30 ml PO DAILY PRN PRN Reason: Constipation Metoprolol Succinate (Metoprolol Succinate Er 25 Mg Tab.Er.24h) 25 mg PO DAILY [facility]; Protocol Last Admin: 07/06/24 09:34 Dose: 25 mg Nicotine (Nicotine 14 Mg Patch.Td24) 14 mg TRANSDERMA DAILY PRN PRN Reason: Nicotine Cravings Nicotine Polacrilex (Nicotine Polacrilex Lozenge 4 Mg Lozenge) 4 mg BUCCAL Q2H PRN PRN Reason: Nicotine Cravings Olanzapine (Olanzapine 7.5 Mg Tablet) 15 mg PO BEDTIME [facility] Last Admin: 07/05/24 20:39 Dose: Not Given Olanzapine (Olanzapine 5 Mg Tablet) 5 mg PO Q4H PRN PRN Reason: Psychosis Last Admin: 07/05/24 18:38 Dose: 5 mg Polyethylene Glycol (Polyethylene Glycol 3350 17 Gm Powd.Pack) 17 gm PO DAILY [facility] Last Admin: 07/06/24 11:24 Dose: Not Given Sodium Biphosphate/Sodium Phosphate (Sodium Phosphate,[place]-Dibasic 133 Ml Enema) 133 ml [place] ONCE PRN PRN Reason: Constipation Trazodone HCl (Trazodone Hcl 50 Mg Tablet) 50 mg PO BEDTIME MRX1 PRN PRN Reason: Insomnia Last Admin: 07/05/24 21:56 Dose: 50 mg Allergies Allergies Allergy/AdvReac Type Severity Reaction Status Date / Time Sulfa (Sulfonamide AdvReac Mild Nausea and Verified 06/01/24 23:32 Antibiotics) Vomiting amoxicillin [From Augmentin] AdvReac Nausea and Verified 06/02/24 00:04 Vomiting clavulanic acid AdvReac Nausea and Verified 06/02/24 00:04 [From Augmentin] Vomiting Assessment & Plan Assessment & Plan (1) Schizoaffective disorder, bipolar type: Status: Acute Code(s): F25.0 - Schizoaffective disorder, bipolar type (2) HTN (hypertension): Status: Acute Code(s): I10 - Essential (primary) hypertension (3) HLD (hyperlipidemia): Status: Acute Code(s): E78.5 - Hyperlipidemia, unspecified Plan She has positive screening EIA ,treponemal test. She has negative treponemal TP-PA,direct for syphilis. Also screening RPR titer,nontreponemal or indirect measure of syphilis is negative. There is no recent exposures,no history or symptoms of it. HIV is negative. Best explanation is false positive screening test EIA which can appear if there are random antibodies in blood react. No treatment or further testing for syphilis at this time and symptoms arent explained by syphilis. The patient is a 64-year-old female with a past history of schizoaffective disorder who was initially admitted from the community since she was agitated. She was transferred to and later on transferred to geriatric psychiatrist since the patient is poorly functional with severe cognitive impairment. Plan 1. Continue current treatment. 2. Waiting for placement.. 3. Start Effexor 37.5 on 07/07 Reason for continued inpatient stay Substantial Risk for: inability to function, rapid decompensation and med/psych decompensation Time Spent With Patient Time: Total time managing care of this patient today __20__ minutes.
[2024-07-06] MEDS: OLANZapine 5 MG TABLET PO (17:42)
[2024-07-06 20:00] VITALS: BP 128/78; PULSE 66; RESP 18; TEMP 36.5; O2SAT 98
[2024-07-06] MEDS: fluPHENAZine HCl 5 MG TABLET 15 MG PO (20:36)
[2024-07-06] MEDS: OLANZapine 7.5 MG TABLET 15 MG PO (20:36)
[2024-07-06] MEDS: hydrOXYzine HCL 10 MG TABLET PO (20:36)
[2024-07-07 09:15] VITALS: BP 138/71; PULSE 57; RESP 16; TEMP 36.2; O2SAT 96
[2024-07-07 09:32] VITALS: BP 138/71; PULSE 57
[2024-07-07] MEDS: Venlafaxine HCl ER 37.5 MG CAP.ER.24H PO (09:32)
[2024-07-07] MEDS: hydrOXYzine HCL 10 MG TABLET PO ×2 (09:32→20:25)
[2024-07-07] MEDS: Benztropine Mesylate 1 MG TABLET PO ×2 (09:32→20:25)
[2024-07-07] MEDS: Metoprolol Succinate ER 25 MG TAB.ER.24H PO (09:32)
[2024-07-07] MEDS: guanFACINE HCl ER 1 MG TAB.ER.24H PO (09:32)
[2024-07-07] MEDS: Gabapentin 300 MG CAPSULE PO ×3 (09:32→20:25)
[2024-07-07] MEDS: fluPHENAZine HCl 5 MG TABLET 10 MG PO (09:32)
[2024-07-07] MEDS: LORazepam 0.5 MG TABLET PO ×3 (09:32→20:25)
[2024-07-07 09:33] VITALS: BP 138/71
[2024-07-07] MEDS: amLODIPine Besylate 5 MG TABLET PO (09:33)
--- NOTE | 2024-07-07 12:18 | HO.PSYCHPN ---
Subjective Subjective Date of Service: 07/07/24 Reason For Visit: schizoaffective disorder, bipolar type Subjective Notes: Conditional Voluntary Interim History: Patient was seen and discussed in rounds today. Records and plans were reviewed. She has been doing better and states that she is not having any auditory hallucinations. Some paranoia persisting. Eating and sleeping adequately. No complaints or side effects. No behavioral issues of concern. No changes were made today Review of Systems Review of Systems Yes all other systems are reviewed and are negative Mental Status Exam Mental Status Exam Patient Appearance: Appropriate Patient Orientation: Person and Situation Level of Consciousness: Awake and Appropriate Patient Behavior: Guarded and Passive Mood Description: Withdrawn Affect Description: Constricted Patient Cognition Impaired: Yes Ability to Follow Directions: Good Speech Pattern: Clear Hallucinations: None Delusions: Not Present Thought Process: Distracted and Slowed Thinking Thought Content: positive for [place] and positive for Poverty of Content Judgement: Fair Diagnostics Vital Signs (24Hr): Vital Signs - 24 hr 07/06/24 20:00 07/07/24 09:15 07/07/24 09:32 Temperature 97.7 F 97.1 F Pulse Rate 66 57 57 Respiratory Rate 18 16 Blood Pressure 128/78 138/71 138/71 Pulse Oximetry 98 96 Oxygen Delivery Method Room Air Room Air 07/07/24 09:33 Temperature Pulse Rate Respiratory Rate Blood Pressure 138/71 Pulse Oximetry Oxygen Delivery Method BMI result Body Mass Index 23.8 Labs 06/25/24 08:04 06/25/24 08:04 Medications Medications Current Medications Acetaminophen (Acetaminophen 325 Mg Tablet) 650 mg PO Q6H PRN PRN Reason: Headache/Pain Mild Scale (1-3) Last Admin: 07/06/24 14:20 Dose: 650 mg Al Hydroxide/Mg Hydroxide (Magnesium Hydrox/Alum Hydrox 30 Ml Oral.Susp) 30 ml PO Q6H PRN PRN Reason: Heartburn/Nausea Amlodipine Besylate (Amlodipine Besylate 5 Mg Tablet) 5 mg PO DAILY [facility]; Protocol Last Admin: 07/07/24 09:33 Dose: 5 mg Benztropine Mesylate (Benztropine Mesylate 1 Mg Tablet) 1 mg PO BID [facility] Last Admin: 07/07/24 09:32 Dose: 1 mg Fluphenazine HCl (Fluphenazine Hcl 5 Mg Tablet) 10 mg PO DAILY [facility] Last Admin: 07/07/24 09:32 Dose: 10 mg Fluphenazine HCl (Fluphenazine Hcl 5 Mg Tablet) 15 mg PO BEDTIME [facility] Last Admin: 07/06/24 20:36 Dose: 15 mg Gabapentin (Gabapentin 300 Mg Capsule) 300 mg PO TID [facility] Last Admin: 07/07/24 09:32 Dose: 300 mg Guanfacine HCl (Guanfacine Hcl Er 1 Mg Tab.Er.24h) 1 mg PO DAILY [facility] Last Admin: 07/07/24 09:32 Dose: 1 mg Hydroxyzine HCl (Hydroxyzine Hcl 10 Mg Tablet) 10 mg PO Q8H PRN PRN Reason: Anxiety Last Admin: 07/07/24 09:32 Dose: 10 mg Lidocaine HCl (Lidocaine 4 % Cream Kit) 1 appl TOPICAL DAILY PRN; Protocol PRN Reason: numb area prior to blood draw Lorazepam (Lorazepam 0.5 Mg Tablet) 0.5 mg PO TID [facility] Last Admin: 07/07/24 09:32 Dose: 0.5 mg Magnesium Hydroxide (Milk Of Magnesia 30 Ml Oral.Susp) 30 ml PO DAILY PRN PRN Reason: Constipation Metoprolol Succinate (Metoprolol Succinate Er 25 Mg Tab.Er.24h) 25 mg PO DAILY [facility]; Protocol Last Admin: 07/07/24 09:32 Dose: 25 mg Nicotine (Nicotine 14 Mg Patch.Td24) 14 mg TRANSDERMA DAILY PRN PRN Reason: Nicotine Cravings Nicotine Polacrilex (Nicotine Polacrilex Lozenge 4 Mg Lozenge) 4 mg BUCCAL Q2H PRN PRN Reason: Nicotine Cravings Olanzapine (Olanzapine 7.5 Mg Tablet) 15 mg PO BEDTIME [facility] Last Admin: 07/06/24 20:36 Dose: 15 mg Olanzapine (Olanzapine 5 Mg Tablet) 5 mg PO Q4H PRN PRN Reason: Psychosis Last Admin: 07/06/24 17:42 Dose: 5 mg Polyethylene Glycol (Polyethylene Glycol 3350 17 Gm Powd.Pack) 17 gm PO DAILY [facility] Last Admin: 07/07/24 09:41 Dose: Not Given Sodium Biphosphate/Sodium Phosphate (Sodium Phosphate,[place]-Dibasic 133 Ml Enema) 133 ml [place] ONCE PRN PRN Reason: Constipation Trazodone HCl (Trazodone Hcl 50 Mg Tablet) 50 mg PO BEDTIME MRX1 PRN PRN Reason: Insomnia Last Admin: 07/05/24 21:56 Dose: 50 mg Venlafaxine HCl (Venlafaxine Hcl Er 37.5 Mg Cap.Er.24h) 37.5 mg PO DAILY [facility] Last Admin: 07/07/24 09:32 Dose: 37.5 mg Allergies Allergies Allergy/AdvReac Type Severity Reaction Status Date / Time Sulfa (Sulfonamide AdvReac Mild Nausea and Verified 06/01/24 23:32 Antibiotics) Vomiting amoxicillin [From Augmentin] AdvReac Nausea and Verified 06/02/24 00:04 Vomiting clavulanic acid AdvReac Nausea and Verified 06/02/24 00:04 [From Augmentin] Vomiting Assessment & Plan Assessment & Plan (1) Schizoaffective disorder, bipolar type: Status: Acute Code(s): F25.0 - Schizoaffective disorder, bipolar type (2) HTN (hypertension): Status: Acute Code(s): I10 - Essential (primary) hypertension (3) HLD (hyperlipidemia): Status: Acute Code(s): E78.5 - Hyperlipidemia, unspecified Plan She has positive screening EIA ,treponemal test. She has negative treponemal TP-PA,direct for syphilis. Also screening RPR titer,nontreponemal or indirect measure of syphilis is negative. There is no recent exposures,no history or symptoms of it. HIV is negative. Best explanation is false positive screening test EIA which can appear if there are random antibodies in blood react. No treatment or further testing for syphilis at this time and symptoms arent explained by syphilis. The patient is a 64-year-old female with a past history of schizoaffective disorder who was initially admitted from the community since she was agitated. She was transferred to and later on transferred to geriatric psychiatrist since the patient is poorly functional with severe cognitive impairment. Plan 1. Continue current treatment. 2. Waiting for placement.. 3. Start Effexor 37.5 on 07/07 07/07: Continue current regimen and plans Reason for continued inpatient stay Substantial Risk for: med/psych decompensation Time Spent With Patient Time: Total time managing care of this patient today ____ minutes.
[2024-07-07 20:00] VITALS: BP 115/72; PULSE 68; RESP 18; TEMP 36.4; O2SAT 98
[2024-07-07] MEDS: OLANZapine 7.5 MG TABLET 15 MG PO (20:24)
[2024-07-07] MEDS: fluPHENAZine HCl 5 MG TABLET 15 MG PO (20:24)
[2024-07-08 07:54] VITALS: BP 125/66; PULSE 62; RESP 16; TEMP 36.3; O2SAT 98
[2024-07-08] MEDS: Gabapentin 300 MG CAPSULE PO ×3 (09:12→20:13)
[2024-07-08 09:13] VITALS: BP 125/66; PULSE 62
[2024-07-08] MEDS: LORazepam 0.5 MG TABLET PO ×3 (09:13→20:13)
[2024-07-08] MEDS: fluPHENAZine HCl 5 MG TABLET 10 MG PO (09:13)
[2024-07-08] MEDS: Venlafaxine HCl ER 37.5 MG CAP.ER.24H PO (09:13)
[2024-07-08] MEDS: amLODIPine Besylate 5 MG TABLET PO (09:13)
[2024-07-08] MEDS: Benztropine Mesylate 1 MG TABLET PO ×2 (09:13→20:13)
[2024-07-08] MEDS: guanFACINE HCl ER 1 MG TAB.ER.24H PO (09:13)
[2024-07-08] MEDS: Metoprolol Succinate ER 25 MG TAB.ER.24H PO (09:13)
--- NOTE | 2024-07-08 09:25 | P.PNPSI_ITS ---
Subjective Subjective Date of Service: 07/08/24 Reason For Visit: schizoaffective disorder, bipolar type Subjective Notes: Conditional Voluntary Interim History: Patient was seen and discussed in rounds today. Records and plans were reviewed. She has been stable and is doing better. She is medication compliant. Tearful times and anxious at times. No AVH. Eating and sleeping well. No complaints or side effects Review of Systems Review of Systems Yes all other systems are reviewed and are negative Mental Status Exam Mental Status Exam Patient Appearance: Appropriate Patient Orientation: Person and Situation Level of Consciousness: Awake and Appropriate Patient Behavior: Guarded and Passive Mood Description: Withdrawn Affect Description: Constricted Patient Cognition Impaired: Yes Ability to Follow Directions: Good Speech Pattern: Clear Hallucinations: None Delusions: Not Present Thought Process: Distracted and Slowed Thinking Thought Content: positive for [place] and positive for Poverty of Content Judgement: Fair Diagnostics Vital Signs (24Hr): Vital Signs - 24 hr 07/07/24 09:32 07/07/24 09:33 07/07/24 20:00 Temperature 97.6 F Pulse Rate 57 68 Respiratory Rate 18 Blood Pressure 138/71 138/71 115/72 Pulse Oximetry 98 Oxygen Delivery Method Room Air 07/08/24 07:54 07/08/24 09:13 07/08/24 09:13 Temperature 97.3 F Pulse Rate 62 62 Respiratory Rate 16 Blood Pressure 125/66 125/66 125/66 Pulse Oximetry 98 Oxygen Delivery Method Room Air BMI result Body Mass Index 23.8 Labs 06/25/24 08:04 06/25/24 08:04 Medications Medications Current Medications Acetaminophen (Acetaminophen 325 Mg Tablet) 650 mg PO Q6H PRN PRN Reason: Headache/Pain Mild Scale (1-3) Last Admin: 07/06/24 14:20 Dose: 650 mg Al Hydroxide/Mg Hydroxide (Magnesium Hydrox/Alum Hydrox 30 Ml Oral.Susp) 30 ml PO Q6H PRN PRN Reason: Heartburn/Nausea Amlodipine Besylate (Amlodipine Besylate 5 Mg Tablet) 5 mg PO DAILY [facility]; Protocol Last Admin: 07/08/24 09:13 Dose: 5 mg Benztropine Mesylate (Benztropine Mesylate 1 Mg Tablet) 1 mg PO BID [facility] Last Admin: 07/08/24 09:13 Dose: 1 mg Fluphenazine HCl (Fluphenazine Hcl 5 Mg Tablet) 10 mg PO DAILY [facility] Last Admin: 07/08/24 09:13 Dose: 10 mg Fluphenazine HCl (Fluphenazine Hcl 5 Mg Tablet) 15 mg PO BEDTIME [facility] Last Admin: 07/07/24 20:24 Dose: 15 mg Gabapentin (Gabapentin 300 Mg Capsule) 300 mg PO TID [facility] Last Admin: 07/08/24 09:12 Dose: 300 mg Guanfacine HCl (Guanfacine Hcl Er 1 Mg Tab.Er.24h) 1 mg PO DAILY [facility] Last Admin: 07/08/24 09:13 Dose: 1 mg Hydroxyzine HCl (Hydroxyzine Hcl 10 Mg Tablet) 10 mg PO Q8H PRN PRN Reason: Anxiety Last Admin: 07/07/24 20:25 Dose: 10 mg Lidocaine HCl (Lidocaine 4 % Cream Kit) 1 appl TOPICAL DAILY PRN; Protocol PRN Reason: numb area prior to blood draw Lorazepam (Lorazepam 0.5 Mg Tablet) 0.5 mg PO TID [facility] Last Admin: 07/08/24 09:13 Dose: 0.5 mg Magnesium Hydroxide (Milk Of Magnesia 30 Ml Oral.Susp) 30 ml PO DAILY PRN PRN Reason: Constipation Metoprolol Succinate (Metoprolol Succinate Er 25 Mg Tab.Er.24h) 25 mg PO DAILY [facility]; Protocol Last Admin: 07/08/24 09:13 Dose: 25 mg Nicotine (Nicotine 14 Mg Patch.Td24) 14 mg TRANSDERMA DAILY PRN PRN Reason: Nicotine Cravings Nicotine Polacrilex (Nicotine Polacrilex Lozenge 4 Mg Lozenge) 4 mg BUCCAL Q2H PRN PRN Reason: Nicotine Cravings Olanzapine (Olanzapine 7.5 Mg Tablet) 15 mg PO BEDTIME [facility] Last Admin: 07/07/24 20:24 Dose: 15 mg Olanzapine (Olanzapine 5 Mg Tablet) 5 mg PO Q4H PRN PRN Reason: Psychosis Last Admin: 07/06/24 17:42 Dose: 5 mg Polyethylene Glycol (Polyethylene Glycol 3350 17 Gm Powd.Pack) 17 gm PO DAILY [facility] Last Admin: 07/08/24 09:14 Dose: Not Given Sodium Biphosphate/Sodium Phosphate (Sodium Phosphate,[place]-Dibasic 133 Ml Enema) 133 ml [place] ONCE PRN PRN Reason: Constipation Trazodone HCl (Trazodone Hcl 50 Mg Tablet) 50 mg PO BEDTIME MRX1 PRN PRN Reason: Insomnia Last Admin: 07/05/24 21:56 Dose: 50 mg Venlafaxine HCl (Venlafaxine Hcl Er 37.5 Mg Cap.Er.24h) 37.5 mg PO DAILY [facility] Last Admin: 07/08/24 09:13 Dose: 37.5 mg Allergies Allergies Allergy/AdvReac Type Severity Reaction Status Date / Time Sulfa (Sulfonamide AdvReac Mild Nausea and Verified 06/01/24 23:32 Antibiotics) Vomiting amoxicillin [From Augmentin] AdvReac Nausea and Verified 06/02/24 00:04 Vomiting clavulanic acid AdvReac Nausea and Verified 06/02/24 00:04 [From Augmentin] Vomiting Assessment & Plan Assessment & Plan (1) Schizoaffective disorder, bipolar type: Status: Acute Code(s): F25.0 - Schizoaffective disorder, bipolar type (2) HTN (hypertension): Status: Acute Code(s): I10 - Essential (primary) hypertension (3) HLD (hyperlipidemia): Status: Acute Code(s): E78.5 - Hyperlipidemia, unspecified Plan She has positive screening EIA ,treponemal test. She has negative treponemal TP-PA,direct for syphilis. Also screening RPR titer,nontreponemal or indirect measure of syphilis is negative. There is no recent exposures,no history or symptoms of it. HIV is negative. Best explanation is false positive screening test EIA which can appear if there are random antibodies in blood react. No treatment or further testing for syphilis at this time and symptoms arent explained by syphilis. The patient is a 64-year-old female with a past history of schizoaffective disorder who was initially admitted from the community since she was agitated. She was transferred to and later on transferred to geriatric psychiatrist since the patient is poorly functional with severe cognitive impairment. Plan 1. Continue current treatment. 2. Waiting for placement.. 3. Start Effexor 37.5 on 07/07 07/07: Continue current regimen and plans 07/08: Continue current regimen and plans Reason for continued inpatient stay Substantial Risk for: med/psych decompensation Time Spent With Patient Time: Total time managing care of this patient today ____ minutes.
[2024-07-08 20:00] VITALS: BP 129/74; PULSE 86; RESP 16; TEMP 36.2; O2SAT 94
[2024-07-08] MEDS: OLANZapine 7.5 MG TABLET 15 MG PO (20:13)
[2024-07-08] MEDS: fluPHENAZine HCl 5 MG TABLET 15 MG PO (20:13)
[2024-07-09 08:05] VITALS: BP 137/71; PULSE 64; RESP 18; TEMP 36.6; O2SAT 99
[2024-07-09] MEDS: Gabapentin 300 MG CAPSULE PO ×3 (09:08→19:47)
[2024-07-09] MEDS: guanFACINE HCl ER 1 MG TAB.ER.24H PO (09:08)
[2024-07-09] MEDS: Benztropine Mesylate 1 MG TABLET PO ×2 (09:09→19:47)
[2024-07-09] MEDS: amLODIPine Besylate 5 MG TABLET PO (09:09)
[2024-07-09] MEDS: LORazepam 0.5 MG TABLET PO ×3 (09:09→19:47)
[2024-07-09] MEDS: Metoprolol Succinate ER 25 MG TAB.ER.24H PO (09:09)
[2024-07-09] MEDS: Venlafaxine HCl ER 37.5 MG CAP.ER.24H PO (09:09)
[2024-07-09] MEDS: polyethylene glycoL 3350 17 GM POWD.PACK PO (09:13)
--- NOTE | 2024-07-09 09:14 | PC.NURSE ---
During med pass noted that Pt received Extra dose of Prolixin at HS, Provider, Dr Blair made aware and held Prolixin 10mg
--- NOTE | 2024-07-09 14:02 | P.PNPSI_ITS ---
Subjective Subjective Date of Service: 07/09/24 Reason For Visit: schizoaffective disorder, bipolar type Subjective Notes: Conditional Voluntary Interim History: The nursing staff reported the patient had been compliant with treatment, she slept 8 hours. The neonatal social worker reported that they could not find a place for her yet her daughter does not want to take her back and so far she is technically homeless since the rest home has already given her bed. On interview the patient denies new symptoms, waiting for placement. Mental Status Exam Mental Status Exam Patient Appearance: Appropriate Patient Orientation: Person and Situation Level of Consciousness: Awake and Appropriate Patient Behavior: Guarded and Passive Mood Description: Withdrawn Affect Description: Calm Patient Cognition Impaired: Yes Ability to Follow Directions: Good Speech Pattern: Clear Hallucinations: None Delusions: Not Present Thought Process: Distracted and Slowed Thinking Thought Content: positive for [place] and positive for Poverty of Content Judgement: Fair Diagnostics Vital Signs (24Hr): Vital Signs - 24 hr 07/08/24 20:00 07/09/24 08:05 Temperature 97.2 F 97.9 F Pulse Rate 86 64 Respiratory Rate 16 18 Blood Pressure 129/74 137/71 Pulse Oximetry 94 99 Oxygen Delivery Method Room Air Room Air BMI result Body Mass Index 23.8 Labs 06/25/24 08:04 06/25/24 08:04 Medications Medications Current Medications Acetaminophen (Acetaminophen 325 Mg Tablet) 650 mg PO Q6H PRN PRN Reason: Headache/Pain Mild Scale (1-3) Last Admin: 07/06/24 14:20 Dose: 650 mg Al Hydroxide/Mg Hydroxide (Magnesium Hydrox/Alum Hydrox 30 Ml Oral.Susp) 30 ml PO Q6H PRN PRN Reason: Heartburn/Nausea Amlodipine Besylate (Amlodipine Besylate 5 Mg Tablet) 5 mg PO DAILY [facility]; Protocol Last Admin: 07/09/24 09:09 Dose: 5 mg Benztropine Mesylate (Benztropine Mesylate 1 Mg Tablet) 1 mg PO BID [facility] Last Admin: 07/09/24 09:09 Dose: 1 mg Fluphenazine HCl (Fluphenazine Hcl 5 Mg Tablet) 10 mg PO DAILY [facility] Last Admin: 07/08/24 20:13 Dose: 10 mg Fluphenazine HCl (Fluphenazine Hcl 5 Mg Tablet) 15 mg PO BEDTIME [facility] Last Admin: 07/08/24 20:13 Dose: 15 mg Gabapentin (Gabapentin 300 Mg Capsule) 300 mg PO TID [facility] Last Admin: 07/09/24 09:08 Dose: 300 mg Guanfacine HCl (Guanfacine Hcl Er 1 Mg Tab.Er.24h) 1 mg PO DAILY [facility] Last Admin: 07/09/24 09:08 Dose: 1 mg Hydroxyzine HCl (Hydroxyzine Hcl 10 Mg Tablet) 10 mg PO Q8H PRN PRN Reason: Anxiety Last Admin: 07/07/24 20:25 Dose: 10 mg Lidocaine HCl (Lidocaine 4 % Cream Kit) 1 appl TOPICAL DAILY PRN; Protocol PRN Reason: numb area prior to blood draw Lorazepam (Lorazepam 0.5 Mg Tablet) 0.5 mg PO TID [facility] Last Admin: 07/09/24 09:09 Dose: 0.5 mg Magnesium Hydroxide (Milk Of Magnesia 30 Ml Oral.Susp) 30 ml PO DAILY PRN PRN Reason: Constipation Metoprolol Succinate (Metoprolol Succinate Er 25 Mg Tab.Er.24h) 25 mg PO DAILY [facility]; Protocol Last Admin: 07/09/24 09:09 Dose: 25 mg Nicotine (Nicotine 14 Mg Patch.Td24) 14 mg TRANSDERMA DAILY PRN PRN Reason: Nicotine Cravings Nicotine Polacrilex (Nicotine Polacrilex Lozenge 4 Mg Lozenge) 4 mg BUCCAL Q2H PRN PRN Reason: Nicotine Cravings Olanzapine (Olanzapine 7.5 Mg Tablet) 15 mg PO BEDTIME [facility] Last Admin: 07/08/24 20:13 Dose: 15 mg Olanzapine (Olanzapine 5 Mg Tablet) 5 mg PO Q4H PRN PRN Reason: Psychosis Last Admin: 07/06/24 17:42 Dose: 5 mg Polyethylene Glycol (Polyethylene Glycol 3350 17 Gm Powd.Pack) 17 gm PO DAILY [facility] Last Admin: 07/09/24 09:13 Dose: 17 gm Sodium Biphosphate/Sodium Phosphate (Sodium Phosphate,[place]-Dibasic 133 Ml Enema) 133 ml [place] ONCE PRN PRN Reason: Constipation Trazodone HCl (Trazodone Hcl 50 Mg Tablet) 50 mg PO BEDTIME MRX1 PRN PRN Reason: Insomnia Last Admin: 07/05/24 21:56 Dose: 50 mg Venlafaxine HCl (Venlafaxine Hcl Er 37.5 Mg Cap.Er.24h) 37.5 mg PO DAILY [facility] Last Admin: 07/09/24 09:09 Dose: 37.5 mg Allergies Allergies Allergy/AdvReac Type Severity Reaction Status Date / Time Sulfa (Sulfonamide AdvReac Mild Nausea and Verified 06/01/24 23:32 Antibiotics) Vomiting amoxicillin [From Augmentin] AdvReac Nausea and Verified 06/02/24 00:04 Vomiting clavulanic acid AdvReac Nausea and Verified 06/02/24 00:04 [From Augmentin] Vomiting Assessment & Plan Assessment & Plan (1) Schizoaffective disorder, bipolar type: Status: Acute Code(s): F25.0 - Schizoaffective disorder, bipolar type (2) HTN (hypertension): Status: Acute Code(s): I10 - Essential (primary) hypertension (3) HLD (hyperlipidemia): Status: Acute Code(s): E78.5 - Hyperlipidemia, unspecified Plan She has positive screening EIA ,treponemal test. She has negative treponemal TP-PA,direct for syphilis. Also screening RPR titer,nontreponemal or indirect measure of syphilis is negative. There is no recent exposures,no history or symptoms of it. HIV is negative. Best explanation is false positive screening test EIA which can appear if there are random antibodies in blood react. No treatment or further testing for syphilis at this time and symptoms arent explained by syphilis. The patient is a 64-year-old female with a past history of schizoaffective disorder who was initially admitted from the community since she was agitated. She was transferred to and later on transferred to geriatric psychiatrist since the patient is poorly functional with severe cognitive impairment. Plan 1. Continue current treatment. 2. Waiting for placement.. 3. Start Effexor 37.5 on 07/07 Reason for continued inpatient stay Substantial Risk for: inability to function, rapid decompensation and med/psych decompensation Time Spent With Patient Time: Total time managing care of this patient today _20___ minutes.
[2024-07-09] MEDS: fluPHENAZine HCl 5 MG TABLET 15 MG PO (19:46)
[2024-07-09 19:47] VITALS: BP 125/59; PULSE 49; RESP 17; TEMP 36.3; O2SAT 98
[2024-07-09] MEDS: OLANZapine 7.5 MG TABLET 15 MG PO (19:47)
[2024-07-09 22:41] VITALS: PULSE 53
[2024-07-10 08:10] VITALS: BP 136/63; PULSE 52; RESP 18; TEMP 36.8; O2SAT 98
[2024-07-10] MEDS: LORazepam 0.5 MG TABLET PO ×3 (08:25→19:38)
[2024-07-10] MEDS: guanFACINE HCl ER 1 MG TAB.ER.24H PO (08:25)
[2024-07-10] MEDS: polyethylene glycoL 3350 17 GM POWD.PACK PO (08:25)
[2024-07-10] MEDS: Benztropine Mesylate 1 MG TABLET PO ×2 (08:26→19:38)
[2024-07-10] MEDS: amLODIPine Besylate 5 MG TABLET PO (08:26)
[2024-07-10] MEDS: Venlafaxine HCl ER 37.5 MG CAP.ER.24H PO (08:26)
[2024-07-10] MEDS: Gabapentin 300 MG CAPSULE PO ×3 (08:26→19:38)
[2024-07-10] MEDS: fluPHENAZine HCl 5 MG TABLET 10 MG PO (08:26)
--- NOTE | 2024-07-10 09:08 | PC.NURSE ---
Held AM Metoprolol HR 52
--- NOTE | 2024-07-10 12:00 | P.PNPSI_ITS ---
Subjective Subjective Date of Service: 07/10/24 Reason For Visit: schizoaffective disorder, bipolar type Subjective Notes: Conditional Voluntary Interim History: The nursing staff reported the patient slept 8 hours. The geriatric social worker reported the patient is homeless and at this moment the patient does not have a guardianship. She has [place] [address] and 8 for July. We will offer CV today. On interview the patient denies new symptoms, waiting for placement. She is unable to process that she is technically homeless at this point. Mental Status Exam Mental Status Exam Patient Appearance: Well Grooomed and Appropriate Patient Orientation: Person and Situation Level of Consciousness: Awake and Appropriate Patient Behavior: Guarded and Passive Mood Description: Withdrawn Affect Description: Constricted Patient Cognition Impaired: Yes Ability to Follow Directions: Good Speech Pattern: Clear Hallucinations: None Delusions: Not Present Thought Process: Distracted and Slowed Thinking Thought Content: positive for [employer] and positive for Poverty of Content Judgement: Fair Diagnostics Vital Signs (24Hr): Vital Signs - 24 hr 07/09/24 19:47 07/09/24 22:41 07/10/24 08:10 Temperature 97.3 F 98.2 F Pulse Rate 49 L 53 52 Respiratory Rate 17 18 Blood Pressure 125/59 L 136/63 Pulse Oximetry 98 98 Oxygen Delivery Method Room Air Room Air BMI result Body Mass Index 23.8 Labs 06/25/24 08:04 06/25/24 08:04 Medications Medications Current Medications Acetaminophen (Acetaminophen 325 Mg Tablet) 650 mg PO Q6H PRN PRN Reason: Headache/Pain Mild Scale (1-3) Last Admin: 07/06/24 14:20 Dose: 650 mg Al Hydroxide/Mg Hydroxide (Magnesium Hydrox/Alum Hydrox 30 Ml Oral.Susp) 30 ml PO Q6H PRN PRN Reason: Heartburn/Nausea Amlodipine Besylate (Amlodipine Besylate 5 Mg Tablet) 5 mg PO DAILY [facility]; Protocol Last Admin: 07/10/24 08:26 Dose: 5 mg Benztropine Mesylate (Benztropine Mesylate 1 Mg Tablet) 1 mg PO BID [facility] Last Admin: 07/10/24 08:26 Dose: 1 mg Fluphenazine HCl (Fluphenazine Hcl 5 Mg Tablet) 10 mg PO DAILY [facility] Last Admin: 07/10/24 08:26 Dose: 10 mg Fluphenazine HCl (Fluphenazine Hcl 5 Mg Tablet) 15 mg PO BEDTIME [facility] Last Admin: 07/09/24 19:46 Dose: 15 mg Gabapentin (Gabapentin 300 Mg Capsule) 300 mg PO TID [facility] Last Admin: 07/10/24 08:26 Dose: 300 mg Guanfacine HCl (Guanfacine Hcl Er 1 Mg Tab.Er.24h) 1 mg PO DAILY [facility] Last Admin: 07/10/24 08:25 Dose: 1 mg Hydroxyzine HCl (Hydroxyzine Hcl 10 Mg Tablet) 10 mg PO Q8H PRN PRN Reason: Anxiety Last Admin: 07/07/24 20:25 Dose: 10 mg Lidocaine HCl (Lidocaine 4 % Cream Kit) 1 appl TOPICAL DAILY [facility]; Protocol PRN Reason: numb area prior to blood draw Lorazepam (Lorazepam 0.5 Mg Tablet) 0.5 mg PO TID [facility] Last Admin: 07/10/24 08:25 Dose: 0.5 mg Magnesium Hydroxide (Milk Of Magnesia 30 Ml Oral.Susp) 30 ml PO DAILY PRN PRN Reason: Constipation Metoprolol Succinate (Metoprolol Succinate Er 25 Mg Tab.Er.24h) 25 mg PO DAILY [facility]; Protocol Last Admin: 07/10/24 08:27 Dose: Not Given Nicotine (Nicotine 14 Mg Patch.Td24) 14 mg TRANSDERMA DAILY PRN PRN Reason: Nicotine Cravings Nicotine Polacrilex (Nicotine Polacrilex Lozenge 4 Mg Lozenge) 4 mg BUCCAL Q2H PRN PRN Reason: Nicotine Cravings Olanzapine (Olanzapine 7.5 Mg Tablet) 15 mg PO BEDTIME [facility] Last Admin: 07/09/24 19:47 Dose: 15 mg Olanzapine (Olanzapine 5 Mg Tablet) 5 mg PO Q4H PRN PRN Reason: Psychosis Last Admin: 07/06/24 17:42 Dose: 5 mg Polyethylene Glycol (Polyethylene Glycol 3350 17 Gm Powd.Pack) 17 gm PO DAILY [facility] Last Admin: 07/10/24 08:25 Dose: 17 gm Sodium Biphosphate/Sodium Phosphate (Sodium Phosphate,[place]-Dibasic 133 Ml Enema) [address] ONCE PRN PRN Reason: Constipation Trazodone HCl (Trazodone Hcl 50 Mg Tablet) 50 mg PO BEDTIME MRX1 PRN PRN Reason: Insomnia Last Admin: 07/05/24 21:56 Dose: 50 mg Venlafaxine HCl (Venlafaxine Hcl Er 37.5 Mg Cap.Er.24h) 37.5 mg PO DAILY [facility] Last Admin: 07/10/24 08:26 Dose: 37.5 mg Allergies Allergies Allergy/AdvReac Type Severity Reaction Status Date / Time Sulfa (Sulfonamide AdvReac Mild Nausea and Verified 06/01/24 23:32 Antibiotics) Vomiting amoxicillin [From Augmentin] AdvReac Nausea and Verified 06/02/24 00:04 Vomiting clavulanic acid AdvReac Nausea and Verified 06/02/24 00:04 [From Augmentin] Vomiting Assessment & Plan Assessment & Plan (1) Schizoaffective disorder, bipolar type: Status: Acute Code(s): F25.0 - Schizoaffective disorder, bipolar type (2) HTN (hypertension): Status: Acute Code(s): I10 - Essential (primary) hypertension (3) HLD (hyperlipidemia): Status: Acute Code(s): E78.5 - Hyperlipidemia, unspecified Plan She has positive screening EIA ,treponemal test. She has negative treponemal TP-PA,direct for syphilis. Also screening RPR titer,nontreponemal or indirect measure of syphilis is negative. There is no recent exposures,no history or symptoms of it. HIV is negative. Best explanation is false positive screening test EIA which can appear if there are random antibodies in blood react. No treatment or further testing for syphilis at this time and symptoms arent explained by syphilis. The patient is a 64-year-old female with a past history of schizoaffective disorder who was initially admitted from the community since she was agitated. She was transferred to and later on transferred to geriatric psychiatrist since the patient is poorly functional with severe cognitive impairment. Plan 1. Continue current treatment. 2. Waiting for placement.. 3. Start Effexor 37.5 on 07/07 Reason for continued inpatient stay Substantial Risk for: inability to function, rapid decompensation and med/psych decompensation Time Spent With Patient Time: Total time managing care of this patient today __20__ minutes.
[2024-07-10] MEDS: OLANZapine 7.5 MG TABLET 15 MG PO (19:38)
[2024-07-10] MEDS: fluPHENAZine HCl 5 MG TABLET 15 MG PO (19:38)
[2024-07-10 20:00] VITALS: BP 129/63; PULSE 61; RESP 18; TEMP 36.4; O2SAT 100
[2024-07-11 08:00] VITALS: BP 129/72; PULSE 70; RESP 18; TEMP 36.6; O2SAT 99
[2024-07-11] MEDS: Metoprolol Succinate ER 25 MG TAB.ER.24H PO (08:23)
[2024-07-11] MEDS: polyethylene glycoL 3350 17 GM POWD.PACK PO (08:23)
[2024-07-11] MEDS: amLODIPine Besylate 5 MG TABLET PO (08:24)
[2024-07-11] MEDS: fluPHENAZine HCl 5 MG TABLET 10 MG PO (08:24)
[2024-07-11] MEDS: guanFACINE HCl ER 1 MG TAB.ER.24H PO (08:24)
[2024-07-11] MEDS: Venlafaxine HCl ER 37.5 MG CAP.ER.24H PO (08:24)
[2024-07-11] MEDS: Gabapentin 300 MG CAPSULE PO ×3 (08:24→20:19)
[2024-07-11] MEDS: LORazepam 0.5 MG TABLET PO ×3 (08:24→20:19)
[2024-07-11] MEDS: Benztropine Mesylate 1 MG TABLET PO ×2 (08:24→20:19)
--- NOTE | 2024-07-11 15:57 | HO.PSYCHPN ---
Subjective Subjective Date of Service: 07/11/24 Reason For Visit: schizoaffective disorder, bipolar type Subjective Notes: Conditional Voluntary Interim History: The nursing staff reported the patient slept 8 hours compliant with treatment. On interview the patient denies new symptoms, waiting for placement Mental Status Exam Mental Status Exam Patient Appearance: Well Grooomed and Appropriate Patient Orientation: Person and Situation Level of Consciousness: Awake and Appropriate Patient Behavior: Guarded and Passive Mood Description: Withdrawn Affect Description: Constricted Patient Cognition Impaired: Yes Ability to Follow Directions: Good Speech Pattern: Clear Hallucinations: None Delusions: Not Present Thought Process: Distracted and Slowed Thinking Thought Content: positive for [place] and positive for Poverty of Content Judgement: Fair Diagnostics Vital Signs (24Hr): Vital Signs - 24 hr 07/10/24 20:00 07/11/24 08:00 Temperature 97.5 F 97.9 F Pulse Rate 61 70 Respiratory Rate 18 18 Blood Pressure 129/63 129/72 Pulse Oximetry 100 99 Oxygen Delivery Method Room Air Room Air BMI result Body Mass Index 23.8 Labs 06/25/24 08:04 06/25/24 08:04 Medications Medications Current Medications Acetaminophen (Acetaminophen 325 Mg Tablet) 650 mg PO Q6H PRN PRN Reason: Headache/Pain Mild Scale (1-3) Last Admin: 07/06/24 14:20 Dose: 650 mg Al Hydroxide/Mg Hydroxide (Magnesium Hydrox/Alum Hydrox 30 Ml Oral.Susp) 30 ml PO Q6H PRN PRN Reason: Heartburn/Nausea Amlodipine Besylate (Amlodipine Besylate 5 Mg Tablet) 5 mg PO DAILY [facility]; Protocol Last Admin: 07/11/24 08:24 Dose: 5 mg Benztropine Mesylate (Benztropine Mesylate 1 Mg Tablet) 1 mg PO BID [facility] Last Admin: 07/11/24 08:24 Dose: 1 mg Fluphenazine HCl (Fluphenazine Hcl 5 Mg Tablet) 10 mg PO DAILY [facility] Last Admin: 07/11/24 08:24 Dose: 10 mg Fluphenazine HCl (Fluphenazine Hcl 5 Mg Tablet) 15 mg PO BEDTIME [facility] Last Admin: 07/10/24 19:38 Dose: 15 mg Gabapentin (Gabapentin 300 Mg Capsule) 300 mg PO TID [facility] Last Admin: 07/11/24 14:55 Dose: 300 mg Guanfacine HCl (Guanfacine Hcl Er 1 Mg Tab.Er.24h) 1 mg PO DAILY [facility] Last Admin: 07/11/24 08:24 Dose: 1 mg Hydroxyzine HCl (Hydroxyzine Hcl 10 Mg Tablet) 10 mg PO Q8H PRN PRN Reason: Anxiety Last Admin: 07/07/24 20:25 Dose: 10 mg Lidocaine HCl (Lidocaine 4 % Cream Kit) 1 appl TOPICAL DAILY PRN; Protocol PRN Reason: numb area prior to blood draw Lorazepam (Lorazepam 0.5 Mg Tablet) 0.5 mg PO TID [facility] Last Admin: 07/11/24 14:55 Dose: 0.5 mg Magnesium Hydroxide (Milk Of Magnesia 30 Ml Oral.Susp) 30 ml PO DAILY PRN PRN Reason: Constipation Metoprolol Succinate (Metoprolol Succinate Er 25 Mg Tab.Er.24h) 25 mg PO DAILY [facility]; Protocol Last Admin: 07/11/24 08:23 Dose: 25 mg Nicotine (Nicotine 14 Mg Patch.Td24) 14 mg TRANSDERMA DAILY PRN PRN Reason: Nicotine Cravings Nicotine Polacrilex (Nicotine Polacrilex Lozenge 4 Mg Lozenge) 4 mg BUCCAL Q2H PRN PRN Reason: Nicotine Cravings Olanzapine (Olanzapine 7.5 Mg Tablet) 15 mg PO BEDTIME [facility] Last Admin: 07/10/24 19:38 Dose: 15 mg Olanzapine (Olanzapine 5 Mg Tablet) 5 mg PO Q4H PRN PRN Reason: Psychosis Last Admin: 07/06/24 17:42 Dose: 5 mg Polyethylene Glycol (Polyethylene Glycol 3350 17 Gm Powd.Pack) 17 gm PO DAILY [facility] Last Admin: 07/11/24 08:23 Dose: 17 gm Sodium Biphosphate/Sodium Phosphate (Sodium Phosphate,[place]-Dibasic 133 Ml Enema) 133 ml [place] ONCE PRN PRN Reason: Constipation Trazodone HCl (Trazodone Hcl 50 Mg Tablet) 50 mg PO BEDTIME MRX1 PRN PRN Reason: Insomnia Last Admin: 07/05/24 21:56 Dose: 50 mg Venlafaxine HCl (Venlafaxine Hcl Er 37.5 Mg Cap.Er.24h) 37.5 mg PO DAILY [facility] Last Admin: 07/11/24 08:24 Dose: 37.5 mg Allergies Allergies Allergy/AdvReac Type Severity Reaction Status Date / Time Sulfa (Sulfonamide AdvReac Mild Nausea and Verified 06/01/24 23:32 Antibiotics) Vomiting amoxicillin [From Augmentin] AdvReac Nausea and Verified 06/02/24 00:04 Vomiting clavulanic acid AdvReac Nausea and Verified 06/02/24 00:04 [From Augmentin] Vomiting Assessment & Plan Assessment & Plan (1) Schizoaffective disorder, bipolar type: Status: Acute Code(s): F25.0 - Schizoaffective disorder, bipolar type (2) HTN (hypertension): Status: Acute Code(s): I10 - Essential (primary) hypertension (3) HLD (hyperlipidemia): Status: Acute Code(s): E78.5 - Hyperlipidemia, unspecified Plan She has positive screening EIA ,treponemal test. She has negative treponemal TP-PA,direct for syphilis. Also screening RPR titer,nontreponemal or indirect measure of syphilis is negative. There is no recent exposures,no history or symptoms of it. HIV is negative. Best explanation is false positive screening test EIA which can appear if there are random antibodies in blood react. No treatment or further testing for syphilis at this time and symptoms arent explained by syphilis. The patient is a 64-year-old female with a past history of schizoaffective disorder who was initially admitted from the community since she was agitated. She was transferred to and later on transferred to geriatric psychiatrist since the patient is poorly functional with severe cognitive impairment. Plan 1. Continue current treatment. 2. Waiting for placement.. 3. Start Effexor 37.5 on 07/07 Reason for continued inpatient stay Substantial Risk for: inability to function, rapid decompensation and med/psych decompensation Time Spent With Patient Time: Total time managing care of this patient today __20__ minutes.
[2024-07-11 20:00] VITALS: BP 113/62; PULSE 58; RESP 18; TEMP 36.6; O2SAT 98
[2024-07-11] MEDS: fluPHENAZine HCl 5 MG TABLET 15 MG PO (20:19)
[2024-07-11] MEDS: OLANZapine 7.5 MG TABLET 15 MG PO (20:20)
[2024-07-12 08:00] VITALS: BP 143/73; PULSE 72; RESP 18; TEMP 36.3; O2SAT 92
[2024-07-12] MEDS: Metoprolol Succinate ER 25 MG TAB.ER.24H PO (09:13)
[2024-07-12] MEDS: guanFACINE HCl ER 1 MG TAB.ER.24H PO (09:14)
[2024-07-12] MEDS: Venlafaxine HCl ER 37.5 MG CAP.ER.24H PO (09:14)
[2024-07-12] MEDS: amLODIPine Besylate 5 MG TABLET PO (09:14)
[2024-07-12] MEDS: Gabapentin 300 MG CAPSULE PO ×3 (09:14→20:31)
[2024-07-12] MEDS: Benztropine Mesylate 1 MG TABLET PO ×2 (09:15→20:32)
[2024-07-12] MEDS: fluPHENAZine HCl 5 MG TABLET 10 MG PO (09:15)
[2024-07-12] MEDS: LORazepam 0.5 MG TABLET PO ×3 (09:15→20:32)
[2024-07-12 13:12] VITALS: BMI 23.6
--- NOTE | 2024-07-12 15:03 | P.PNPSI_ITS ---
Subjective Subjective Date of Service: 07/12/24 Reason For Visit: schizoaffective disorder, bipolar type Subjective Notes: Conditional Voluntary Interim History: The nursing staff reported the patient had good appetite, compliant with treatment. The socially responsible investment adviser reported that he gave permission for more applications to different [facility] facilities. On interview the patient denies new symptoms, waiting for placement. Mental Status Exam Mental Status Exam Patient Appearance: Well Grooomed Patient Orientation: Person and Situation Level of Consciousness: Awake and Appropriate Patient Behavior: Guarded and Passive Mood Description: Calm Affect Description: Constricted Patient Cognition Impaired: Yes Ability to Follow Directions: Good Speech Pattern: Clear Hallucinations: None Delusions: Not Present Thought Process: Distracted and Slowed Thinking Thought Content: positive for [place] Judgement: Poor Diagnostics Vital Signs (24Hr): Vital Signs - 24 hr 07/11/24 20:00 07/12/24 08:00 Temperature 97.9 F 97.4 F Pulse Rate 58 72 Respiratory Rate 18 18 Blood Pressure 113/62 143/73 H Pulse Oximetry 98 92 Oxygen Delivery Method Room Air Room Air BMI result Body Mass Index 23.6 Labs 06/25/24 08:04 06/25/24 08:04 Medications Medications Current Medications Acetaminophen (Acetaminophen 325 Mg Tablet) 650 mg PO Q6H PRN PRN Reason: Headache/Pain Mild Scale (1-3) Last Admin: 07/06/24 14:20 Dose: 650 mg Al Hydroxide/Mg Hydroxide (Magnesium Hydrox/Alum Hydrox 30 Ml Oral.Susp) 30 ml PO Q6H PRN PRN Reason: Heartburn/Nausea Amlodipine Besylate (Amlodipine Besylate 5 Mg Tablet) 5 mg PO DAILY [facility]; Protocol Last Admin: 07/12/24 09:14 Dose: 5 mg Benztropine Mesylate (Benztropine Mesylate 1 Mg Tablet) 1 mg PO BID [facility] Last Admin: 07/12/24 09:15 Dose: 1 mg Fluphenazine HCl (Fluphenazine Hcl 5 Mg Tablet) 10 mg PO DAILY [facility] Last Admin: 07/12/24 09:15 Dose: 10 mg Fluphenazine HCl (Fluphenazine Hcl 5 Mg Tablet) 15 mg PO BEDTIME [facility] Last Admin: 07/11/24 20:19 Dose: 15 mg Gabapentin (Gabapentin 300 Mg Capsule) 300 mg PO TID [facility] Last Admin: 07/12/24 14:35 Dose: 300 mg Guanfacine HCl (Guanfacine Hcl Er 1 Mg Tab.Er.24h) 1 mg PO DAILY [facility] Last Admin: 07/12/24 09:14 Dose: 1 mg Hydroxyzine HCl (Hydroxyzine Hcl 10 Mg Tablet) 10 mg PO Q8H PRN PRN Reason: Anxiety Last Admin: 07/07/24 20:25 Dose: 10 mg Lidocaine HCl (Lidocaine 4 % Cream Kit) 1 appl TOPICAL DAILY [facility]; Protocol PRN Reason: numb area prior to blood draw Lorazepam (Lorazepam 0.5 Mg Tablet) 0.5 mg PO TID [facility] Last Admin: 07/12/24 14:35 Dose: 0.5 mg Magnesium Hydroxide (Milk Of Magnesia 30 Ml Oral.Susp) 30 ml PO DAILY PRN PRN Reason: Constipation Metoprolol Succinate (Metoprolol Succinate Er 25 Mg Tab.Er.24h) 25 mg PO DAILY [facility]; Protocol Last Admin: 07/12/24 09:13 Dose: 25 mg Nicotine (Nicotine 14 Mg Patch.Td24) 14 mg TRANSDERMA DAILY PRN PRN Reason: Nicotine Cravings Nicotine Polacrilex (Nicotine Polacrilex Lozenge 4 Mg Lozenge) 4 mg BUCCAL Q2H PRN PRN Reason: Nicotine Cravings Olanzapine (Olanzapine 7.5 Mg Tablet) 15 mg PO BEDTIME [facility] Last Admin: 07/11/24 20:20 Dose: 15 mg Olanzapine (Olanzapine 5 Mg Tablet) 5 mg PO Q4H PRN PRN Reason: Psychosis Last Admin: 07/06/24 17:42 Dose: 5 mg Polyethylene Glycol (Polyethylene Glycol 3350 17 Gm Powd.Pack) 17 gm PO DAILY [facility] Last Admin: 07/12/24 09:20 Dose: Not Given Sodium Biphosphate/Sodium Phosphate (Sodium Phosphate,[place]-Dibasic 133 Ml Enema) 133 ml [place] ONCE PRN PRN Reason: Constipation Trazodone HCl (Trazodone Hcl 50 Mg Tablet) 50 mg PO BEDTIME MRX1 PRN PRN Reason: Insomnia Last Admin: 07/05/24 21:56 Dose: 50 mg Venlafaxine HCl (Venlafaxine Hcl Er 37.5 Mg Cap.Er.24h) 37.5 mg PO DAILY [facility] Last Admin: 07/12/24 09:14 Dose: 37.5 mg Allergies Allergies Allergy/AdvReac Type Severity Reaction Status Date / Time Sulfa (Sulfonamide AdvReac Mild Nausea and Verified 06/01/24 23:32 Antibiotics) Vomiting amoxicillin [From Augmentin] AdvReac Nausea and Verified 06/02/24 00:04 Vomiting clavulanic acid AdvReac Nausea and Verified 06/02/24 00:04 [From Augmentin] Vomiting Assessment & Plan Assessment & Plan (1) Schizoaffective disorder, bipolar type: Status: Acute Code(s): F25.0 - Schizoaffective disorder, bipolar type (2) HTN (hypertension): Status: Acute Code(s): I10 - Essential (primary) hypertension (3) HLD (hyperlipidemia): Status: Acute Code(s): E78.5 - Hyperlipidemia, unspecified Plan She has positive screening EIA ,treponemal test. She has negative treponemal TP-[place],direct for syphilis. Also screening RPR titer,nontreponemal or indirect measure of syphilis is negative. There is no recent exposures,no history or symptoms of it. HIV is negative. Best explanation is false positive screening test EIA which can appear if there are random antibodies in blood react. No treatment or further testing for syphilis at this time and symptoms arent explained by syphilis. The patient is a 64-year-old female with a past history of schizoaffective disorder who was initially admitted from the community since she was agitated. She was transferred to and later on transferred to geriatric psychiatrist since the patient is poorly functional with severe cognitive impairment. Plan 1. Continue current treatment. 2. Waiting for placement.. 3. Start Effexor 37.5 on 07/07 Reason for continued inpatient stay Substantial Risk for: inability to function, rapid decompensation and med/psych decompensation Time Spent With Patient Time: Total time managing care of this patient today __20__ minutes.
[2024-07-12 20:00] VITALS: BP 124/72; PULSE 58; RESP 16; TEMP 36.4; O2SAT 97
[2024-07-12] MEDS: OLANZapine 7.5 MG TABLET 15 MG PO (20:31)
[2024-07-12] MEDS: fluPHENAZine HCl 5 MG TABLET 15 MG PO (20:31)
[2024-07-13 08:00] VITALS: BP 137/67; PULSE 54; RESP 18; TEMP 36.3; O2SAT 98
[2024-07-13] MEDS: Metoprolol Succinate ER 25 MG TAB.ER.24H PO (09:21)
[2024-07-13] MEDS: amLODIPine Besylate 5 MG TABLET PO (09:21)
[2024-07-13] MEDS: fluPHENAZine HCl 5 MG TABLET 10 MG PO (09:22)
[2024-07-13] MEDS: LORazepam 0.5 MG TABLET PO ×3 (09:22→20:24)
[2024-07-13] MEDS: Venlafaxine HCl ER 37.5 MG CAP.ER.24H PO (09:22)
[2024-07-13] MEDS: guanFACINE HCl ER 1 MG TAB.ER.24H PO (09:22)
[2024-07-13] MEDS: Gabapentin 300 MG CAPSULE PO ×3 (09:22→20:24)
[2024-07-13] MEDS: Benztropine Mesylate 1 MG TABLET PO ×2 (09:22→20:24)
--- NOTE | 2024-07-13 16:27 | HO.PSYCHPN ---
Subjective Subjective Date of Service: 07/13/24 Reason For Visit: schizoaffective disorder, bipolar type Subjective Notes: Section 7 and Section 8 Interim History: The nursing staff reported the patient had been flat, compliant with treatment she slept 8 hours. The social services technician reported the probably she can get placement pretty soon, so far yesterday 33 facilities were applied. On interview the patient denies new symptoms she is pleasant cooperative, waiting for placement. Mental Status Exam Mental Status Exam Patient Appearance: Appropriate Patient Orientation: Person and Situation Level of Consciousness: Awake and Appropriate Patient Behavior: Guarded and Passive Mood Description: Withdrawn Affect Description: Constricted Patient Cognition Impaired: Yes Ability to Follow Directions: Good Speech Pattern: Clear Hallucinations: None Delusions: Not Present Thought Process: Distracted and Slowed Thinking Thought Content: positive for [place] and positive for Poverty of Content Judgement: Fair Diagnostics Vital Signs (24Hr): Vital Signs - 24 hr 07/12/24 20:00 07/13/24 08:00 Temperature 97.6 F 97.4 F Pulse Rate 58 54 Respiratory Rate 16 18 Blood Pressure 124/72 137/67 Pulse Oximetry 97 98 Oxygen Delivery Method Room Air Room Air BMI result Body Mass Index 23.6 Labs 06/25/24 08:04 06/25/24 08:04 Medications Medications Current Medications Acetaminophen (Acetaminophen 325 Mg Tablet) 650 mg PO Q6H PRN PRN Reason: Headache/Pain Mild Scale (1-3) Last Admin: 07/06/24 14:20 Dose: 650 mg Al Hydroxide/Mg Hydroxide (Magnesium Hydrox/Alum Hydrox 30 Ml Oral.Susp) 30 ml PO Q6H PRN PRN Reason: Heartburn/Nausea Amlodipine Besylate (Amlodipine Besylate 5 Mg Tablet) 5 mg PO DAILY [facility]; Protocol Last Admin: 07/13/24 09:21 Dose: 5 mg Benztropine Mesylate (Benztropine Mesylate 1 Mg Tablet) 1 mg PO BID [facility] Last Admin: 07/13/24 09:22 Dose: 1 mg Fluphenazine HCl (Fluphenazine Hcl 5 Mg Tablet) 10 mg PO DAILY [facility] Last Admin: 07/13/24 09:22 Dose: 10 mg Fluphenazine HCl (Fluphenazine Hcl 5 Mg Tablet) 15 mg PO BEDTIME [facility] Last Admin: 07/12/24 20:31 Dose: 15 mg Gabapentin (Gabapentin 300 Mg Capsule) 300 mg PO TID [facility] Last Admin: 07/13/24 15:30 Dose: 300 mg Guanfacine HCl (Guanfacine Hcl Er 1 Mg Tab.Er.24h) 1 mg PO DAILY [facility] Last Admin: 07/13/24 09:22 Dose: 1 mg Hydroxyzine HCl (Hydroxyzine Hcl 10 Mg Tablet) 10 mg PO Q8H PRN PRN Reason: Anxiety Last Admin: 07/07/24 20:25 Dose: 10 mg Lidocaine HCl (Lidocaine 4 % Cream Kit) 1 appl TOPICAL DAILY PRN; Protocol PRN Reason: numb area prior to blood draw Lorazepam (Lorazepam 0.5 Mg Tablet) 0.5 mg PO TID [facility] Last Admin: 07/13/24 15:30 Dose: 0.5 mg Magnesium Hydroxide (Milk Of Magnesia 30 Ml Oral.Susp) 30 ml PO DAILY PRN PRN Reason: Constipation Metoprolol Succinate (Metoprolol Succinate Er 25 Mg Tab.Er.24h) 25 mg PO DAILY [facility]; Protocol Last Admin: 07/13/24 09:21 Dose: 25 mg Nicotine (Nicotine 14 Mg Patch.Td24) 14 mg TRANSDERMA DAILY PRN PRN Reason: Nicotine Cravings Nicotine Polacrilex (Nicotine Polacrilex Lozenge 4 Mg Lozenge) 4 mg BUCCAL Q2H PRN PRN Reason: Nicotine Cravings Olanzapine (Olanzapine 7.5 Mg Tablet) 15 mg PO BEDTIME [facility] Last Admin: 07/12/24 20:31 Dose: 15 mg Olanzapine (Olanzapine 5 Mg Tablet) 5 mg PO Q4H PRN PRN Reason: Psychosis Last Admin: 07/06/24 17:42 Dose: 5 mg Polyethylene Glycol (Polyethylene Glycol 3350 17 Gm Powd.Pack) 17 gm PO DAILY [facility] Last Admin: 07/13/24 09:26 Dose: Not Given Sodium Biphosphate/Sodium Phosphate (Sodium Phosphate,[place]-Dibasic 133 Ml Enema) 133 ml [place] ONCE PRN PRN Reason: Constipation Trazodone HCl (Trazodone Hcl 50 Mg Tablet) 50 mg PO BEDTIME MRX1 PRN PRN Reason: Insomnia Last Admin: 07/05/24 21:56 Dose: 50 mg Venlafaxine HCl (Venlafaxine Hcl Er 37.5 Mg Cap.Er.24h) 37.5 mg PO DAILY [facility] Last Admin: 07/13/24 09:22 Dose: 37.5 mg Allergies Allergies Allergy/AdvReac Type Severity Reaction Status Date / Time Sulfa (Sulfonamide AdvReac Mild Nausea and Verified 06/01/24 23:32 Antibiotics) Vomiting amoxicillin [From Augmentin] AdvReac Nausea and Verified 06/02/24 00:04 Vomiting clavulanic acid AdvReac Nausea and Verified 06/02/24 00:04 [From Augmentin] Vomiting Assessment & Plan Assessment & Plan (1) Schizoaffective disorder, bipolar type: Status: Acute Code(s): F25.0 - Schizoaffective disorder, bipolar type (2) HTN (hypertension): Status: Acute Code(s): I10 - Essential (primary) hypertension (3) HLD (hyperlipidemia): Status: Acute Code(s): E78.5 - Hyperlipidemia, unspecified Plan She has positive screening EIA ,treponemal test. She has negative treponemal TP-PA,direct for syphilis. Also screening RPR titer,nontreponemal or indirect measure of syphilis is negative. There is no recent exposures,no history or symptoms of it. HIV is negative. Best explanation is false positive screening test EIA which can appear if there are random antibodies in blood react. No treatment or further testing for syphilis at this time and symptoms arent explained by syphilis. The patient is a 64-year-old female with a past history of schizoaffective disorder who was initially admitted from the community since she was agitated. She was transferred to and later on transferred to geriatric psychiatrist since the patient is poorly functional with severe cognitive impairment. Plan 1. Continue current treatment. 2. Waiting for placement.. 3. Start Effexor 37.5 on 07/07 Reason for continued inpatient stay Substantial Risk for: inability to function, rapid decompensation and med/psych decompensation Time Spent With Patient Time: Total time managing care of this patient today __20__ minutes.
[2024-07-13 20:00] VITALS: BP 129/56; PULSE 58; RESP 16; TEMP 36; O2SAT 99
[2024-07-13] MEDS: OLANZapine 7.5 MG TABLET 15 MG PO (20:23)
[2024-07-13] MEDS: fluPHENAZine HCl 5 MG TABLET 15 MG PO (20:23)
[2024-07-13] MEDS: hydrOXYzine HCL 10 MG TABLET PO (20:30)
[2024-07-14 08:00] VITALS: BP 149/81; PULSE 64; RESP 18; TEMP 36.4; O2SAT 95
[2024-07-14] MEDS: Venlafaxine HCl ER 37.5 MG CAP.ER.24H PO (08:30)
[2024-07-14] MEDS: Metoprolol Succinate ER 25 MG TAB.ER.24H PO (08:30)
[2024-07-14] MEDS: fluPHENAZine HCl 5 MG TABLET 10 MG PO (08:30)
[2024-07-14] MEDS: LORazepam 0.5 MG TABLET PO ×3 (08:31→20:29)
[2024-07-14] MEDS: guanFACINE HCl ER 1 MG TAB.ER.24H PO (08:31)
[2024-07-14] MEDS: amLODIPine Besylate 5 MG TABLET PO (08:31)
[2024-07-14] MEDS: Benztropine Mesylate 1 MG TABLET PO ×2 (08:31→20:29)
[2024-07-14] MEDS: Gabapentin 300 MG CAPSULE PO ×3 (08:31→20:29)
--- NOTE | 2024-07-14 11:12 | P.PNPSI_ITS ---
Subjective Subjective Date of Service: 07/14/24 Reason For Visit: schizoaffective disorder, bipolar type Subjective Notes: Section 7 and Section 8 Interim History: Patient's case reviewed with Nursing staff chart reviewed patient seen. The nursing staff no current severe behavioral difficulties compliant with treatment Referrals have been made for step-down Medication Compliance: Yes Mental Status Exam Mental Status Exam Patient Appearance: Appropriate Patient Orientation: Person and Situation Level of Consciousness: Awake and Appropriate Patient Behavior: Guarded and Passive Mood Description: Withdrawn Affect Description: Constricted Patient Cognition Impaired: Yes Ability to Follow Directions: Good Speech Pattern: Clear Hallucinations: None Delusions: Not Present Thought Process: Distracted and Slowed Thinking Thought Content: positive for [place] and positive for Poverty of Content Judgement: Fair Diagnostics Vital Signs (24Hr): Vital Signs - 24 hr 07/13/24 20:00 07/14/24 08:00 Temperature 96.8 F 97.6 F Pulse Rate 58 64 Respiratory Rate 16 18 Blood Pressure 129/56 L 149/81 H Pulse Oximetry 99 95 Oxygen Delivery Method Room Air Room Air BMI result Body Mass Index 23.6 Labs 06/25/24 08:04 06/25/24 08:04 Medications Medications Current Medications Acetaminophen (Acetaminophen 325 Mg Tablet) 650 mg PO Q6H PRN PRN Reason: Headache/Pain Mild Scale (1-3) Last Admin: 07/06/24 14:20 Dose: 650 mg Al Hydroxide/Mg Hydroxide (Magnesium Hydrox/Alum Hydrox 30 Ml Oral.Susp) 30 ml PO Q6H PRN PRN Reason: Heartburn/Nausea Amlodipine Besylate (Amlodipine Besylate 5 Mg Tablet) 5 mg PO DAILY [facility]; Protocol Last Admin: 07/14/24 08:31 Dose: 5 mg Benztropine Mesylate (Benztropine Mesylate 1 Mg Tablet) 1 mg PO BID [facility] Last Admin: 07/14/24 08:31 Dose: 1 mg Fluphenazine HCl (Fluphenazine Hcl 5 Mg Tablet) 10 mg PO DAILY [facility] Last Admin: 07/14/24 08:30 Dose: 10 mg Fluphenazine HCl (Fluphenazine Hcl 5 Mg Tablet) 15 mg PO BEDTIME [facility] Last Admin: 07/13/24 20:23 Dose: 15 mg Gabapentin (Gabapentin 300 Mg Capsule) 300 mg PO TID [facility] Last Admin: 07/14/24 08:31 Dose: 300 mg Guanfacine HCl (Guanfacine Hcl Er 1 Mg Tab.Er.24h) 1 mg PO DAILY [facility] Last Admin: 07/14/24 08:31 Dose: 1 mg Hydroxyzine HCl (Hydroxyzine Hcl 10 Mg Tablet) 10 mg PO Q8H PRN PRN Reason: Anxiety Last Admin: 07/13/24 20:30 Dose: 10 mg Lidocaine HCl (Lidocaine 4 % Cream Kit) 1 appl TOPICAL DAILY PRN; Protocol PRN Reason: numb area prior to blood draw Lorazepam (Lorazepam 0.5 Mg Tablet) 0.5 mg PO TID [facility] Last Admin: 07/14/24 08:31 Dose: 0.5 mg Magnesium Hydroxide (Milk Of Magnesia 30 Ml Oral.Susp) 30 ml PO DAILY PRN PRN Reason: Constipation Metoprolol Succinate (Metoprolol Succinate Er 25 Mg Tab.Er.24h) 25 mg PO DAILY [facility]; Protocol Last Admin: 07/14/24 08:30 Dose: 25 mg Nicotine (Nicotine 14 Mg Patch.Td24) 14 mg TRANSDERMA DAILY PRN PRN Reason: Nicotine Cravings Nicotine Polacrilex (Nicotine Polacrilex Lozenge 4 Mg Lozenge) 4 mg BUCCAL Q2H PRN PRN Reason: Nicotine Cravings Olanzapine (Olanzapine 7.5 Mg Tablet) 15 mg PO BEDTIME [facility] Last Admin: 07/13/24 20:23 Dose: 15 mg Olanzapine (Olanzapine 5 Mg Tablet) 5 mg PO Q4H PRN PRN Reason: Psychosis Last Admin: 07/06/24 17:42 Dose: 5 mg Polyethylene Glycol (Polyethylene Glycol 3350 17 Gm Powd.Pack) 17 gm PO DAILY [facility] Last Admin: 07/14/24 08:30 Dose: Not Given Sodium Biphosphate/Sodium Phosphate (Sodium Phosphate,[place]-Dibasic 133 Ml Enema) 133 ml ND ONCE PRN PRN Reason: Constipation Trazodone HCl (Trazodone Hcl 50 Mg Tablet) 50 mg PO BEDTIME MRX1 PRN PRN Reason: Insomnia Last Admin: 07/05/24 21:56 Dose: 50 mg Venlafaxine HCl (Venlafaxine Hcl Er 37.5 Mg Cap.Er.24h) 37.5 mg PO DAILY [facility] Last Admin: 07/14/24 08:30 Dose: 37.5 mg Allergies Allergies Allergy/AdvReac Type Severity Reaction Status Date / Time Sulfa (Sulfonamide AdvReac Mild Nausea and Verified 06/01/24 23:32 Antibiotics) Vomiting amoxicillin [From Augmentin] AdvReac Nausea and Verified 06/02/24 00:04 Vomiting clavulanic acid AdvReac Nausea and Verified 06/02/24 00:04 [From Augmentin] Vomiting Assessment & Plan Assessment & Plan (1) Schizoaffective disorder, bipolar type: Status: Acute Code(s): F25.0 - Schizoaffective disorder, bipolar type (2) HTN (hypertension): Status: Acute Code(s): I10 - Essential (primary) hypertension (3) HLD (hyperlipidemia): Status: Acute Code(s): E78.5 - Hyperlipidemia, unspecified Plan She has positive screening EIA ,treponemal test. She has negative treponemal TP-PA,direct for syphilis. Also screening RPR titer,nontreponemal or indirect measure of syphilis is negative. There is no recent exposures,no history or symptoms of it. HIV is negative. Best explanation is false positive screening test EIA which can appear if there are random antibodies in blood react. No treatment or further testing for syphilis at this time and symptoms arent explained by syphilis. The patient is a 64-year-old female with a past history of schizoaffective disorder who was initially admitted from the community since she was agitated. She was transferred to and later on transferred to geriatric psychiatrist since the patient is poorly functional with severe cognitive impairment. Plan 1. Continue current treatment. 2. Waiting for placement.. 3. Start Effexor 37.5 on 07/0707/15/2024 Patient with history of schizoaffective disorder patient with history of francesca unclear why she is on Prolixin and olanzapine question might consider monotherapy. Monitor for any manic agitation on venlafaxine with question of manic episode Reason for continued inpatient stay Substantial Risk for: inability to function and rapid decompensation Time Spent With Patient Time: Total time managing care of this patient today ____ minutes.
[2024-07-14 20:00] VITALS: BP 99/50; PULSE 58; RESP 16; TEMP 37; O2SAT 95
[2024-07-14] MEDS: OLANZapine 7.5 MG TABLET 15 MG PO (20:29)
[2024-07-14] MEDS: fluPHENAZine HCl 5 MG TABLET 15 MG PO (20:29)
[2024-07-15 08:10] VITALS: BP 152/71; PULSE 67; RESP 18; TEMP 36.8; O2SAT 98
[2024-07-15] MEDS: amLODIPine Besylate 5 MG TABLET PO (08:33)
[2024-07-15] MEDS: Metoprolol Succinate ER 25 MG TAB.ER.24H PO (08:33)
[2024-07-15] MEDS: guanFACINE HCl ER 1 MG TAB.ER.24H PO (08:34)
[2024-07-15] MEDS: LORazepam 0.5 MG TABLET PO ×3 (08:34→20:36)
[2024-07-15] MEDS: Gabapentin 300 MG CAPSULE PO ×3 (08:34→20:34)
[2024-07-15] MEDS: Venlafaxine HCl ER 37.5 MG CAP.ER.24H PO (08:34)
[2024-07-15] MEDS: Benztropine Mesylate 1 MG TABLET PO ×2 (08:34→20:36)
[2024-07-15] MEDS: fluPHENAZine HCl 5 MG TABLET 10 MG PO (08:34)
[2024-07-15 20:00] VITALS: BP 134/73; PULSE 61; RESP 18; TEMP 36.7; O2SAT 99
[2024-07-15] MEDS: OLANZapine 7.5 MG TABLET 15 MG PO (20:34)
[2024-07-15] MEDS: traZODone HCL 50 MG TABLET PO (20:34)
[2024-07-15] MEDS: fluPHENAZine HCl 5 MG TABLET 15 MG PO (20:34)
--- NOTE | 2024-07-15 22:44 | P.PNPSI_ITS ---
Subjective Subjective Date of Service: 07/15/24 Reason For Visit: schizoaffective disorder, bipolar type Subjective Notes: Section 7 and Section 8 Interim History: Patient's case reviewed with Nursing staff chart reviewed patient seen. The nursing staff no current severe behavioral difficulties compliant with treatment Referrals have been made for step-down has generally been stable with care Medication Compliance: Yes Mental Status Exam Mental Status Exam Patient Appearance: Appropriate Patient Orientation: Person and Situation Level of Consciousness: Awake and Appropriate Patient Behavior: Guarded and Passive Mood Description: Withdrawn Affect Description: Constricted Patient Cognition Impaired: Yes Ability to Follow Directions: Good Speech Pattern: Clear Hallucinations: None Delusions: Not Present Thought Process: Distracted and Slowed Thinking Thought Content: positive for [place] and positive for Poverty of Content Judgement: Fair Diagnostics Vital Signs (24Hr): Vital Signs - 24 hr 07/15/24 08:10 07/15/24 20:00 Temperature 98.2 F 98.1 F Pulse Rate 67 61 Respiratory Rate 18 18 Blood Pressure 152/71 H 134/73 Pulse Oximetry 98 99 Oxygen Delivery Method Room Air Room Air BMI result Body Mass Index 23.6 Labs 06/25/24 08:04 06/25/24 08:04 Medications Medications Current Medications Acetaminophen (Acetaminophen 325 Mg Tablet) 650 mg PO Q6H PRN PRN Reason: Headache/Pain Mild Scale (1-3) Last Admin: 07/06/24 14:20 Dose: 650 mg Al Hydroxide/Mg Hydroxide (Magnesium Hydrox/Alum Hydrox 30 Ml Oral.Susp) 30 ml PO Q6H PRN PRN Reason: Heartburn/Nausea Amlodipine Besylate (Amlodipine Besylate 5 Mg Tablet) 5 mg PO DAILY [facility]; Protocol Last Admin: 07/15/24 08:33 Dose: 5 mg Benztropine Mesylate (Benztropine Mesylate 1 Mg Tablet) 1 mg PO BID [facility] Last Admin: 07/15/24 20:36 Dose: 1 mg Fluphenazine HCl (Fluphenazine Hcl 5 Mg Tablet) 10 mg PO DAILY [facility] Last Admin: 07/15/24 08:34 Dose: 10 mg Fluphenazine HCl (Fluphenazine Hcl 5 Mg Tablet) 15 mg PO BEDTIME [facility] Last Admin: 07/15/24 20:34 Dose: 15 mg Gabapentin (Gabapentin 300 Mg Capsule) 300 mg PO TID [facility] Last Admin: 07/15/24 20:34 Dose: 300 mg Guanfacine HCl (Guanfacine Hcl Er 1 Mg Tab.Er.24h) 1 mg PO DAILY [facility] Last Admin: 07/15/24 08:34 Dose: 1 mg Hydroxyzine HCl (Hydroxyzine Hcl 10 Mg Tablet) 10 mg PO Q8H PRN PRN Reason: Anxiety Last Admin: 07/13/24 20:30 Dose: 10 mg Lidocaine HCl (Lidocaine 4 % Cream Kit) 1 appl TOPICAL DAILY PRN; Protocol PRN Reason: numb area prior to blood draw Lorazepam (Lorazepam 0.5 Mg Tablet) 0.5 mg PO TID [facility] Last Admin: 07/15/24 20:36 Dose: 0.5 mg Magnesium Hydroxide (Milk Of Magnesia 30 Ml Oral.Susp) 30 ml PO DAILY PRN PRN Reason: Constipation Metoprolol Succinate (Metoprolol Succinate Er 25 Mg Tab.Er.24h) 25 mg PO DAILY [facility]; Protocol Last Admin: 07/15/24 08:33 Dose: 25 mg Nicotine (Nicotine 14 Mg Patch.Td24) 14 mg TRANSDERMA DAILY PRN PRN Reason: Nicotine Cravings Nicotine Polacrilex (Nicotine Polacrilex Lozenge 4 Mg Lozenge) 4 mg BUCCAL Q2H PRN PRN Reason: Nicotine Cravings Olanzapine (Olanzapine 7.5 Mg Tablet) 15 mg PO BEDTIME [facility] Last Admin: 07/15/24 20:34 Dose: 15 mg Olanzapine (Olanzapine 5 Mg Tablet) 5 mg PO Q4H PRN PRN Reason: Psychosis Last Admin: 07/06/24 17:42 Dose: 5 mg Polyethylene Glycol (Polyethylene Glycol 3350 17 Gm Powd.Pack) 17 gm PO DAILY [facility] Last Admin: 07/15/24 08:36 Dose: Not Given Sodium Biphosphate/Sodium Phosphate (Sodium Phosphate,[place]-Dibasic 133 Ml Enema) 133 ml [place] ONCE PRN PRN Reason: Constipation Trazodone HCl (Trazodone Hcl 50 Mg Tablet) 50 mg PO BEDTIME MRX1 PRN PRN Reason: Insomnia Last Admin: 07/15/24 20:34 Dose: 50 mg Venlafaxine HCl (Venlafaxine Hcl Er 37.5 Mg Cap.Er.24h) 37.5 mg PO DAILY [facility] Last Admin: 07/15/24 08:34 Dose: 37.5 mg Allergies Allergies Allergy/AdvReac Type Severity Reaction Status Date / Time Sulfa (Sulfonamide AdvReac Mild Nausea and Verified 06/01/24 23:32 Antibiotics) Vomiting amoxicillin [From Augmentin] AdvReac Nausea and Verified 06/02/24 00:04 Vomiting clavulanic acid AdvReac Nausea and Verified 06/02/24 00:04 [From Augmentin] Vomiting Assessment & Plan Assessment & Plan (1) Schizoaffective disorder, bipolar type: Status: Acute Code(s): F25.0 - Schizoaffective disorder, bipolar type (2) HTN (hypertension): Status: Acute Code(s): I10 - Essential (primary) hypertension (3) HLD (hyperlipidemia): Status: Acute Code(s): E78.5 - Hyperlipidemia, unspecified Plan She has positive screening EIA ,treponemal test. She has negative treponemal TP-PA,direct for syphilis. Also screening RPR titer,nontreponemal or indirect measure of syphilis is negative. There is no recent exposures,no history or symptoms of it. HIV is negative. Best explanation is false positive screening test EIA which can appear if there are random antibodies in blood react. No treatment or further testing for syphilis at this time and symptoms arent explained by syphilis. The patient is a 64-year-old female with a past history of schizoaffective disorder who was initially admitted from the community since she was agitated. She was transferred to and later on transferred to geriatric psychiatrist since the patient is poorly functional with severe cognitive impairment. Plan 1. Continue current treatment. 2. Waiting for placement.. 3. Start Effexor 37.5 on 07/0707/14/2024 Patient with history of schizoaffective disorder patient with history of francesca unclear why she is on Prolixin and olanzapine question might consider monotherapy. Monitor for any manic agitation on venlafaxine with question of manic episode 07/15/2024 Continue plan of care Reason for continued inpatient stay Substantial Risk for: inability to function and rapid decompensation Time Spent With Patient Time: Total time managing care of this patient today ____ minutes.
[2024-07-16 07:57] VITALS: BP 127/71; PULSE 65; RESP 18; TEMP 35.8; O2SAT 96
[2024-07-16 08:49] VITALS: BP 127/71; PULSE 65
[2024-07-16] MEDS: fluPHENAZine HCl 5 MG TABLET 10 MG PO (08:49)
[2024-07-16] MEDS: Gabapentin 300 MG CAPSULE PO ×3 (08:49→20:45)
[2024-07-16] MEDS: guanFACINE HCl ER 1 MG TAB.ER.24H PO (08:49)
[2024-07-16] MEDS: Venlafaxine HCl ER 37.5 MG CAP.ER.24H PO (08:49)
[2024-07-16] MEDS: Metoprolol Succinate ER 25 MG TAB.ER.24H PO (08:49)
[2024-07-16] MEDS: LORazepam 0.5 MG TABLET PO ×3 (08:49→20:45)
[2024-07-16] MEDS: Benztropine Mesylate 1 MG TABLET PO ×2 (08:49→20:45)
[2024-07-16 08:50] VITALS: BP 127/71
[2024-07-16] MEDS: amLODIPine Besylate 5 MG TABLET PO (08:50)
--- NOTE | 2024-07-16 12:48 | HO.PSYCHPN ---
Subjective Subjective Date of Service: 07/16/24 Reason For Visit: schizoaffective disorder, bipolar type Subjective Notes: Section 7 and Section 8 Interim History: The nursing staff reported her been visible cheerful admitted sporadic auditory hallucinations she slept well last night. The social media analyst reported that there to bed offers and we are waiting for placement. On interview the patient denies new symptoms hopeful that she will get placement soon. Mental Status Exam Mental Status Exam Patient Appearance: Appropriate Patient Orientation: Person and Situation Level of Consciousness: Awake and Appropriate Patient Behavior: Guarded and Passive Mood Description: Withdrawn Affect Description: Constricted Patient Cognition Impaired: Yes Ability to Follow Directions: Good Speech Pattern: Clear Hallucinations: None Delusions: Not Present Thought Process: Distracted and Slowed Thinking Thought Content: positive for [place] and positive for Poverty of Content Judgement: Fair Diagnostics Vital Signs (24Hr): Vital Signs - 24 hr 07/15/24 20:00 07/16/24 07:57 07/16/24 08:49 Temperature 98.1 F 96.5 F L Pulse Rate 61 65 65 Respiratory Rate 18 18 Blood Pressure 134/73 127/71 127/71 Pulse Oximetry 99 96 Oxygen Delivery Method Room Air Room Air 07/16/24 08:50 Temperature Pulse Rate Respiratory Rate Blood Pressure 127/71 Pulse Oximetry Oxygen Delivery Method BMI result Body Mass Index 23.6 Labs 06/25/24 08:04 06/25/24 08:04 Medications Medications Current Medications Acetaminophen (Acetaminophen 325 Mg Tablet) 650 mg PO Q6H PRN PRN Reason: Headache/Pain Mild Scale (1-3) Last Admin: 07/06/24 14:20 Dose: 650 mg Al Hydroxide/Mg Hydroxide (Magnesium Hydrox/Alum Hydrox 30 Ml Oral.Susp) 30 ml PO Q6H PRN PRN Reason: Heartburn/Nausea Amlodipine Besylate (Amlodipine Besylate 5 Mg Tablet) 5 mg PO DAILY [facility]; Protocol Last Admin: 07/16/24 08:50 Dose: 5 mg Benztropine Mesylate (Benztropine Mesylate 1 Mg Tablet) 1 mg PO BID [facility] Last Admin: 07/16/24 08:49 Dose: 1 mg Fluphenazine HCl (Fluphenazine Hcl 5 Mg Tablet) 10 mg PO DAILY [facility] Last Admin: 07/16/24 08:49 Dose: 10 mg Fluphenazine HCl (Fluphenazine Hcl 5 Mg Tablet) 15 mg PO BEDTIME [facility] Last Admin: 07/15/24 20:34 Dose: 15 mg Gabapentin (Gabapentin 300 Mg Capsule) 300 mg PO TID [facility] Last Admin: 07/16/24 08:49 Dose: 300 mg Guanfacine HCl (Guanfacine Hcl Er 1 Mg Tab.Er.24h) 1 mg PO DAILY [facility] Last Admin: 07/16/24 08:49 Dose: 1 mg Hydroxyzine HCl (Hydroxyzine Hcl 10 Mg Tablet) 10 mg PO Q8H PRN PRN Reason: Anxiety Last Admin: 07/13/24 20:30 Dose: 10 mg Lidocaine HCl (Lidocaine 4 % Cream Kit) 1 appl TOPICAL DAILY [facility]N; Protocol PRN Reason: numb area prior to blood draw Lorazepam (Lorazepam 0.5 Mg Tablet) 0.5 mg PO TID [facility] Last Admin: 07/16/24 08:49 Dose: 0.5 mg Magnesium Hydroxide (Milk Of Magnesia 30 Ml Oral.Susp) 30 ml PO DAILY PRN PRN Reason: Constipation Metoprolol Succinate (Metoprolol Succinate Er 25 Mg Tab.Er.24h) 25 mg PO DAILY [facility]; Protocol Last Admin: 07/16/24 08:49 Dose: 25 mg Nicotine (Nicotine 14 Mg Patch.Td24) 14 mg TRANSDERMA DAILY PRN PRN Reason: Nicotine Cravings Nicotine Polacrilex (Nicotine Polacrilex Lozenge 4 Mg Lozenge) 4 mg BUCCAL Q2H PRN PRN Reason: Nicotine Cravings Olanzapine (Olanzapine 7.5 Mg Tablet) 15 mg PO BEDTIME [facility] Last Admin: 07/15/24 20:34 Dose: 15 mg Olanzapine (Olanzapine 5 Mg Tablet) 5 mg PO Q4H PRN PRN Reason: Psychosis Last Admin: 07/06/24 17:42 Dose: 5 mg Polyethylene Glycol (Polyethylene Glycol 3350 17 Gm Powd.Pack) 17 gm PO DAILY [facility] Last Admin: 07/16/24 08:52 Dose: Not Given Sodium Biphosphate/Sodium Phosphate (Sodium Phosphate,[place]-Dibasic 133 Ml Enema) [address] ONCE PRN PRN Reason: Constipation Trazodone HCl (Trazodone Hcl 50 Mg Tablet) 50 mg PO BEDTIME MRX1 PRN PRN Reason: Insomnia Last Admin: 07/15/24 20:34 Dose: 50 mg Venlafaxine HCl (Venlafaxine Hcl Er 37.5 Mg Cap.Er.24h) 37.5 mg PO DAILY [facility] Last Admin: 07/16/24 08:49 Dose: 37.5 mg Allergies Allergies Allergy/AdvReac Type Severity Reaction Status Date / Time Sulfa (Sulfonamide AdvReac Mild Nausea and Verified 06/01/24 23:32 Antibiotics) Vomiting amoxicillin [From Augmentin] AdvReac Nausea and Verified 06/02/24 00:04 Vomiting clavulanic acid AdvReac Nausea and Verified 06/02/24 00:04 [From Augmentin] Vomiting Assessment & Plan Assessment & Plan (1) Schizoaffective disorder, bipolar type: Status: Acute Code(s): F25.0 - Schizoaffective disorder, bipolar type (2) HTN (hypertension): Status: Acute Code(s): I10 - Essential (primary) hypertension (3) HLD (hyperlipidemia): Status: Acute Code(s): E78.5 - Hyperlipidemia, unspecified Plan She has positive screening EIA ,treponemal test. She has negative treponemal TP-[place],direct for syphilis. Also screening RPR titer,nontreponemal or indirect measure of syphilis is negative. There is no recent exposures,no history or symptoms of it. HIV is negative. Best explanation is false positive screening test EIA which can appear if there are random antibodies in blood react. No treatment or further testing for syphilis at this time and symptoms arent explained by syphilis. The patient is a 64-year-old female with a past history of schizoaffective disorder who was initially admitted from the community since she was agitated. She was transferred to and later on transferred to geriatric psychiatrist since the patient is poorly functional with severe cognitive impairment. Plan 1. Continue current treatment. 2. Waiting for placement.. 3. Start Effexor 37.5 on 07/07 4. Continue with medication treatment for medical ailments. Reason for continued inpatient stay Substantial Risk for: inability to function, rapid decompensation and med/psych decompensation Time Spent With Patient Time: Total time managing care of this patient today __20__ minutes.
[2024-07-16 20:00] VITALS: BP 116/63; PULSE 60; RESP 18; TEMP 36.6; O2SAT 98
[2024-07-16] MEDS: fluPHENAZine HCl 5 MG TABLET 15 MG PO (20:44)
[2024-07-16] MEDS: traZODone HCL 50 MG TABLET PO (20:44)
[2024-07-16] MEDS: OLANZapine 7.5 MG TABLET 15 MG PO (20:45)
[2024-07-17 09:37] VITALS: BP 106/56; PULSE 62; RESP 16; TEMP 36.8; O2SAT 95
[2024-07-17] MEDS: amLODIPine Besylate 5 MG TABLET PO (09:39)
[2024-07-17] MEDS: Metoprolol Succinate ER 25 MG TAB.ER.24H PO (09:39)
[2024-07-17] MEDS: Gabapentin 300 MG CAPSULE PO ×3 (09:40→20:09)
[2024-07-17] MEDS: LORazepam 0.5 MG TABLET PO ×3 (09:40→20:09)
[2024-07-17] MEDS: fluPHENAZine HCl 5 MG TABLET 10 MG PO (09:40)
[2024-07-17] MEDS: Venlafaxine HCl ER 37.5 MG CAP.ER.24H PO (09:40)
[2024-07-17] MEDS: guanFACINE HCl ER 1 MG TAB.ER.24H PO (09:41)
[2024-07-17] MEDS: Benztropine Mesylate 1 MG TABLET PO ×2 (09:41→20:08)
--- NOTE | 2024-07-17 16:57 | HO.PSYCHPN ---
Subjective Subjective Date of Service: 07/17/24 Reason For Visit: schizoaffective disorder, bipolar type Subjective Notes: Conditional Voluntary Interim History: The nursing staff reported that she had been compliant with treatment tearful at times paranoid slept 8 hours. At this moment she is at baseline. The social media coordinator reported that she will probably will be discharged tomorrow. On interview the patient denies new symptoms, waiting for placement Mental Status Exam Mental Status Exam Patient Appearance: Well Grooomed and Appropriate Patient Orientation: Person and Situation Level of Consciousness: Awake and Appropriate Patient Behavior: Guarded and Passive Mood Description: Withdrawn Affect Description: Constricted Patient Cognition Impaired: Yes Ability to Follow Directions: Good Speech Pattern: Clear Hallucinations: None Delusions: Ideas of Reference Thought Process: Distracted and Slowed Thinking Thought Content: positive for [place] and positive for Poverty of Content Judgement: Fair Diagnostics Vital Signs (24Hr): Vital Signs - 24 hr 07/16/24 20:00 07/17/24 09:37 Temperature 98 F 98.2 F Pulse Rate 60 62 Respiratory Rate 18 16 Blood Pressure 116/63 106/56 L Pulse Oximetry 98 95 Oxygen Delivery Method Room Air Room Air BMI result Body Mass Index 23.6 Labs 06/25/24 08:04 06/25/24 08:04 Medications Medications Current Medications Acetaminophen (Acetaminophen 325 Mg Tablet) 650 mg PO Q6H PRN PRN Reason: Headache/Pain Mild Scale (1-3) Last Admin: 07/06/24 14:20 Dose: 650 mg Al Hydroxide/Mg Hydroxide (Magnesium Hydrox/Alum Hydrox 30 Ml Oral.Susp) 30 ml PO Q6H PRN PRN Reason: Heartburn/Nausea Amlodipine Besylate (Amlodipine Besylate 5 Mg Tablet) 5 mg PO DAILY [facility]; Protocol Last Admin: 07/17/24 09:39 Dose: 5 mg Benztropine Mesylate (Benztropine Mesylate 1 Mg Tablet) 1 mg PO BID [facility] Last Admin: 07/17/24 09:41 Dose: 1 mg Fluphenazine HCl (Fluphenazine Hcl 5 Mg Tablet) 10 mg PO DAILY [facility] Last Admin: 07/17/24 09:40 Dose: 10 mg Fluphenazine HCl (Fluphenazine Hcl 5 Mg Tablet) 15 mg PO BEDTIME [facility] Last Admin: 07/16/24 20:44 Dose: 15 mg Gabapentin (Gabapentin 300 Mg Capsule) 300 mg PO TID [facility] Last Admin: 07/17/24 15:18 Dose: 300 mg Guanfacine HCl (Guanfacine Hcl Er 1 Mg Tab.Er.24h) 1 mg PO DAILY [facility] Last Admin: 07/17/24 09:41 Dose: 1 mg Hydroxyzine HCl (Hydroxyzine Hcl 10 Mg Tablet) 10 mg PO Q8H PRN PRN Reason: Anxiety Last Admin: 07/13/24 20:30 Dose: 10 mg Lidocaine HCl (Lidocaine 4 % Cream Kit) 1 appl TOPICAL DAILY PRN; Protocol PRN Reason: numb area prior to blood draw Lorazepam (Lorazepam 0.5 Mg Tablet) 0.5 mg PO TID [facility] Last Admin: 07/17/24 15:18 Dose: 0.5 mg Magnesium Hydroxide (Milk Of Magnesia 30 Ml Oral.Susp) 30 ml PO DAILY PRN PRN Reason: Constipation Metoprolol Succinate (Metoprolol Succinate Er 25 Mg Tab.Er.24h) 25 mg PO DAILY [facility]; Protocol Last Admin: 07/17/24 09:39 Dose: 25 mg Nicotine (Nicotine 14 Mg Patch.Td24) 14 mg TRANSDERMA DAILY PRN PRN Reason: Nicotine Cravings Nicotine Polacrilex (Nicotine Polacrilex Lozenge 4 Mg Lozenge) 4 mg BUCCAL Q2H PRN PRN Reason: Nicotine Cravings Olanzapine (Olanzapine 7.5 Mg Tablet) 15 mg PO BEDTIME [facility] Last Admin: 07/16/24 20:45 Dose: 15 mg Olanzapine (Olanzapine 5 Mg Tablet) 5 mg PO Q4H PRN PRN Reason: Psychosis Last Admin: 07/06/24 17:42 Dose: 5 mg Polyethylene Glycol (Polyethylene Glycol 3350 17 Gm Powd.Pack) 17 gm PO DAILY [facility] Last Admin: 07/17/24 09:42 Dose: Not Given Sodium Biphosphate/Sodium Phosphate (Sodium Phosphate,Jerome-Dibasic 133 Ml Enema) 133 ml ME ONCE PRN PRN Reason: Constipation Trazodone HCl (Trazodone Hcl 50 Mg Tablet) 50 mg PO BEDTIME MRX1 PRN PRN Reason: Insomnia Last Admin: 07/16/24 20:44 Dose: 50 mg Venlafaxine HCl (Venlafaxine Hcl Er 37.5 Mg Cap.Er.24h) 37.5 mg PO DAILY [facility] Last Admin: 07/17/24 09:40 Dose: 37.5 mg Allergies Allergies Allergy/AdvReac Type Severity Reaction Status Date / Time Sulfa (Sulfonamide AdvReac Mild Nausea and Verified 06/01/24 23:32 Antibiotics) Vomiting amoxicillin [From Augmentin] AdvReac Nausea and Verified 06/02/24 00:04 Vomiting clavulanic acid AdvReac Nausea and Verified 06/02/24 00:04 [From Augmentin] Vomiting Assessment & Plan Assessment & Plan (1) Schizoaffective disorder, bipolar type: Status: Acute Code(s): F25.0 - Schizoaffective disorder, bipolar type (2) HTN (hypertension): Status: Acute Code(s): I10 - Essential (primary) hypertension (3) HLD (hyperlipidemia): Status: Acute Code(s): E78.5 - Hyperlipidemia, unspecified Plan She has positive screening EIA ,treponemal test. She has negative treponemal TP-PA,direct for syphilis. Also screening RPR titer,nontreponemal or indirect measure of syphilis is negative. There is no recent exposures,no history or symptoms of it. HIV is negative. Best explanation is false positive screening test EIA which can appear if there are random antibodies in blood react. No treatment or further testing for syphilis at this time and symptoms arent explained by syphilis. The patient is a 64-year-old female with a past history of schizoaffective disorder who was initially admitted from the community since she was agitated. She was transferred to and later on transferred to geriatric psychiatrist since the patient is poorly functional with severe cognitive impairment. Plan 1. Continue current treatment. 2. Waiting for placement.. 3. Start Effexor 37.5 on 07/07 4. Continue with medication treatment for medical ailments. Reason for continued inpatient stay Substantial Risk for: inability to function, rapid decompensation and med/psych decompensation Time Spent With Patient Time: Total time managing care of this patient today __20__ minutes.
[2024-07-17 20:07] VITALS: BP 104/64; PULSE 62; RESP 17; TEMP 36.2; O2SAT 97
[2024-07-17] MEDS: OLANZapine 7.5 MG TABLET 15 MG PO (20:08)
[2024-07-17] MEDS: fluPHENAZine HCl 5 MG TABLET 15 MG PO (20:08)
[2024-07-18 08:06] VITALS: BP 142/81; PULSE 55; RESP 18; TEMP 36.1; O2SAT 97
[2024-07-18] MEDS: Venlafaxine HCl ER 37.5 MG CAP.ER.24H PO (08:29)
[2024-07-18] MEDS: fluPHENAZine HCl 5 MG TABLET 10 MG PO (08:30)
[2024-07-18] MEDS: Gabapentin 300 MG CAPSULE PO ×2 (08:30→14:46)
[2024-07-18] MEDS: guanFACINE HCl ER 1 MG TAB.ER.24H PO (08:30)
[2024-07-18] MEDS: LORazepam 0.5 MG TABLET PO ×2 (08:31→14:46)
[2024-07-18] MEDS: amLODIPine Besylate 5 MG TABLET PO (08:32)
[2024-07-18] MEDS: Benztropine Mesylate 1 MG TABLET PO (08:32)
--- NOTE | 2024-07-18 14:58 | P.DS_ITS ---
DS: Providers Provider Date of Service: 07/18/24 Date of admission: 06/01/24 22:15 Date of discharge: 07/18/24 Primary care physician: Unknown Physician Consults: 06/02/24 03:07 Consult to Hospitalist Routine Comment: Consulting Provider: Hospitalist Reason For Exam: OSH admission 06/13/24 09:42 Consult to Hospitalist Routine Comment: Judi started Macrobid, is this appropriate? Consulting Provider: Hospitalist Reason For Exam: Delirium, positive RPR 06/14/24 09:56 Consult to Infectious Diseases Routine Consulting Provider: [facility] Reason for consultation: tertiary Syphyllis? DS: Diagnosis Discharge Diagnosis (1) Schizoaffective disorder, bipolar type: Status: Acute (2) HTN (hypertension): Status: Acute (3) HLD (hyperlipidemia): Status: Acute DS: Medications Discharge Medications Home Medications: Home Medications ?Medication ?Instructions ?Recorded ?Confirmed amlodipine 5 mg tablet 5 mg PO DAILY 06/02/24 06/02/24 benztropine 1 mg tablet 1 mg PO BID 06/02/24 06/02/24 fluphenazine HCl 10 mg tablet 10 mg PO BID 06/02/24 06/02/24 gabapentin 300 mg capsule 300 mg PO TID 06/02/24 06/02/24 guanfacine 1 mg tablet 1 mg PO DAILY 06/02/24 06/02/24 hydroxyzine pamoate 25 mg capsule 25 mg PO BID 06/02/24 06/02/24 hydroxyzine pamoate 25 mg capsule 25 mg PO TID PRN Anxiety 06/02/24 06/02/24 lorazepam 0.5 mg tablet PO 06/02/24 lorazepam 1 mg tablet 1 mg PO TID 06/02/24 06/02/24 metoprolol succinate 25 mg 25 mg PO DAILY 06/02/24 06/02/24 tablet,extended release 24 hr olanzapine 5 mg tablet 5 mg PO BEDTIME 06/02/24 06/02/24 tizanidine 2 mg tablet 4 mg PO 06/02/24 venlafaxine 75 mg tablet 75 mg PO DAILY 06/02/24 06/02/24 Mental Status Exam Mental Status Exam Patient Appearance: Well Grooomed and Appropriate Patient Orientation: Person and Situation Level of Consciousness: Awake and Appropriate Patient Behavior: Cooperative and Passive Mood Description: Calm Affect Description: Constricted Patient Cognition Impaired: Yes Ability to Follow Directions: Good Speech Pattern: Clear Hallucinations: None Delusions: Not Present Thought Process: Distracted and Slowed Thinking Thought Content: positive for [place] and positive for Poverty of Content Judgement: Fair Data Data Completed and Pending Completed studies during hospitalization [Text1]: 06/12/24 Unknown Urine clean catch - Clean Catch Midstream Urine Culture - Final DS: Summary Hospital Course Hospital Course: The patient is a 64-year-old female, transferred from the emergency room of another hospital out of our catchment area since she was grossly psychotic, agitated and noncompliance with medications. The patient carries a diagnosis of schizoaffective disorder bipolar type and apparently she was in a rest home or assisted living facility and she decompensated and was brought back to the hospital. The patient had several admissions into the hospital in the last months due to noncompliance. The patient was assessed by crisis and transferring to this facility for psychiatric stabilization. On admission, the patient reported that she suffered from PTSD anxiety and psychotic symptoms. She was actively psychotic so fluphenazine was increased slowly taper it up to 10 mg in the morning and 15 at night and olanzapine that was started already was tapered up to 15 mg p.o. q.h.s. with for improvement. The patient was able to participate in groups she was future oriented and cooperative. The patient was technically homeless since she was discharged from the rest home and apparently she did not have social support. The transition social worker contact her children who were not interested in helping her at all. 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 The patient was able to participate in groups, she was future oriented that she complained of dysphoria so we started a low dose of Effexor with for improvement. Since the patient was much better discharge planning was discussed and she was referred to custodial facility that she agreed. At this moment, the patient does not have any psychotic symptoms. Time spent discussing smoking cessation with patient: 3 to 10 minutes Status at Discharge Cognitive/behavioral status at discharge: IMPAIRED AT BASELINE Functional status at discharge: independent ambulation Overall status at discharge: patient is back to baseline Time Spent with Patient Time attestation: Total time managing care of this patient today __30__ minutes. Time spent: Less than 30 minutes Discharge Plan Discharge Anticipated Discharge Date/Time: 07/18/24 15:11 Patient Disposition: Xfer SNF Discharge Diagnosis: Schizoaffective disorder bipolar type Referrals: Physician,Unknown J [Primary Care Provider] - 1 Week Discharge Medications: New venlafaxine 37.5 mg Capsule,Extended Release 24hr 37.5 mg PO DAILY 30 Days Qty: 30 0RF acetaminophen 325 mg Tablet 650 mg PO Q6H PRN (Reason: Headache/Pain Mild Scale (1-3)) 30 Days Qty: 30 0RF trazodone 50 mg Tablet 50 mg PO BEDTIME MRX1 PRN (Reason: Insomnia) 30 Days Qty: 60 0RF olanzapine 7.5 mg Tablet 15 mg PO BEDTIME 30 Days Qty: 60 0RF lorazepam 0.5 mg Tablet 0.5 mg PO TID 30 Days Qty: 90 0RF fluphenazine HCl 5 mg Tablet 10 mg PO DAILY 30 Days Qty: 60 0RF fluphenazine HCl 5 mg Tablet 15 mg PO BEDTIME 30 Days Qty: 90 0RF Continued amlodipine 5 mg tablet 5 mg PO DAILY 30 Days Qty: 30 0RF benztropine 1 mg tablet 1 mg PO BID 30 Days Qty: 60 0RF guanfacine 1 mg tablet 1 mg PO DAILY 30 Days Qty: 30 0RF gabapentin 300 mg capsule 300 mg PO TID 30 Days Qty: 90 0RF metoprolol succinate 25 mg tablet extended release 24 hr 25 mg PO DAILY 30 Days Qty: 30 0RF Discontinued fluphenazine HCl 10 mg tablet 10 mg PO BID olanzapine 5 mg tablet 5 mg PO BEDTIME lorazepam 0.5 mg tablet PO Rx Instructions: listed on external medication list lorazepam 1 mg tablet 1 mg PO TID hydroxyzine pamoate 25 mg capsule 25 mg PO TID PRN (Reason: Anxiety) venlafaxine 75 mg tablet 75 mg PO DAILY tizanidine 2 mg tablet 4 mg PO Rx Instructions: Confusing, no SIG on external pharmacy list, but was listed on [facility] ED as 4 mg po TID hydroxyzine pamoate 25 mg capsule 25 mg PO BID Rx Instructions: this is on the list from external medication list Discharge Orders: Discharge Order (Routine); Ordered 07/18/24 Ordered By: Benoit Blair Diet: Advance to usual diet Activity on Discharge: As tolerated Stand Alone Forms: Patient Portal Discharge page Print Language: [place] Care Plan Goals: Care plan goals achieved in this admission Health Concerns: Continue treatment with primary care physician and other outpatient providers Plan of Treatment: Continue medication management by outpatient providers in Psychiatry. Assessment: Elderly female with a past history of schizoaffective disorder bipolar type who was admitted into the hospital after being transferred from another emergency room due to exacerbation of psychosis in the context of noncompliance. The patient historically has improved with 2 antipsychotics, fluphenazine and Zyprexa and we added a low dose of Effexor due to mild dysphoria. The patient was transferred to custodial facility. Stable no safety concerns at this moment.
== END 2024-07-18 15:30 | disposition skilled nursing facility (03) | DRG 885 ==
LOC: HO.PM5 06-14 13:54 → HO.PGERI 06-19 14:49
PROVIDERS: Psychiatry & Neurology Psychiatry; Admitting Provider Psychiatry & Neurology Psychiatry; Visit Provider Psychiatry & Neurology Psychiatry
DX: F25.0 Schizoaffective disorder, bipolar type (principal); F05 Delirium due to known physiological condition; F43.10 Post-traumatic stress disorder, unspecified; I10 Essential (primary) hypertension; K02.9 Dental caries, unspecified; E78.5 Hyperlipidemia, unspecified; R73.03 Prediabetes; Z75.1 Person awaiting admission to adequate facility elsewhere; Z59.72 Insufficient welfare support; Z91.148 Patient's other noncompliance with medication regimen for other reason; Z79.899 Other long term (current) drug therapy
CPT/HCPCS: 36415; 80048; 80053; 80061; 80164; 81001; 82140; 82175; 82607; 82746; 82947; 83036; 83655; 83825; 84439; 84443; 85025; 85652; 86038; 86592; 86780; 87086; 87389; 92950

== ENCOUNTER → 2024-06-01 22:15 | Outpatient (BNV) | payer MEDICARE, OTHER, MEDICAID, SELFPAY | PROVIDERS: Admitting Provider Psychiatry & Neurology Psychiatry; Visit Provider Psychiatry & Neurology Psychiatry | DX: F25.0 Schizoaffective disorder, bipolar type (principal); I10 Essential (primary) hypertension; E78.5 Hyperlipidemia, unspecified | CPT/HCPCS: 99231 ==

== ENCOUNTER → 2024-06-01 22:15 | Outpatient (BNV) | payer MEDICARE, OTHER, MEDICAID, SELFPAY | PROVIDERS: Admitting Provider Psychiatry & Neurology Psychiatry; Visit Provider Internal Medicine | DX: R89.9 Unspecified abnormal finding in specimens from other organs, systems and tissues (principal) | CPT/HCPCS: 99222 ==

== ENCOUNTER → 2024-06-01 22:15 | Outpatient (BNV) | payer MEDICARE, MEDICAID, SELFPAY | PROVIDERS: Admitting Provider Psychiatry & Neurology Psychiatry; Visit Provider Physician Assistant | DX: Z02.2 Encounter for examination for admission to residential institution (principal) | CPT/HCPCS: 99429; 99499 ==

== ENCOUNTER → 2024-06-01 22:15 | Outpatient (BNV) | payer MEDICARE, OTHER, MEDICAID, SELFPAY | PROVIDERS: Admitting Provider Psychiatry & Neurology Psychiatry; Visit Provider Psychiatry & Neurology Psychiatry | DX: F25.0 Schizoaffective disorder, bipolar type (principal); I10 Essential (primary) hypertension; E78.5 Hyperlipidemia, unspecified | CPT/HCPCS: 90792; 99231; 99232; 99238 ==